=== PATIENT | female | born 1960 | race Caucasian/White ===

== ENCOUNTER 2017-11-03 08:11 | Inpatient (IN) | payer MEDICARE ==
[~2017-11-03] VITALS: Ht 170.2 cm; Wt 169.6 kg
[~2017-11-03 08:11] MED LIST: ALPRAZOLAM2 MG PO; AMARYL2 MG PO; AUGMENTIN 875-1 EACH PO; COMBIVENT RESPIM4 GM IH; COMBIVENT14.7 GM; CONSTULOSE10 GM/15 M PO; ENALAPRIL MALEAT5 MG; GLIMEPIRIDE2 MG PO; GLUCOPHAGE1000 MG PO; GLYBURIDE5 MG PO; HUMULIN R100 UNIT/2 SC; LASIX40 MG PO; METOLAZONE5 MG PO; NORCO 10MG-325MG1 EA PO; PROPRANOLOL HCL20 MG PO; SERTRALINE HCL100 MG PO; SPIRONOLACTONE25 MG PO; SYMBICORT 16010.2 GM PO; TALWIN30 MG/1 M1 PO; TRESIBA INJ; VASOTEC5 MG PO; Z.0.ATIVAN1 MG; Z.0.LASIX40 MG; Z.0.LORTAB 7.5-5001; ZOCOR40 MG PO
[2017-11-03 08:51] LABS: BASOPHILS % 0.3 % (0.0-1.0); EOSINOPHILS # (AUTO) 0.1 (0.0-0.4); EOSINOPHILS % 2.1 % (0.0-6.0); HEMOGLOBIN 12.1 g/dL (12.0-16.0); LYMPHOCYTES # (AUTO) 1.1 (1.0-3.2); LYMPHOCYTES % 19.2 % (18.0-39.1); MEAN CORPUSCULAR HGB CONC 35.6 g/dL (31-35); MEAN CORPUSCULAR VOLUME 98.3 fL (81-99); MONOCYTES # (AUTO) 0.8 (0.2-0.8); MONOCYTES % 13.3 % (4.4-11.3); NEUTROPHILS # (AUTO) 3.7 (2.1-6.9); NEUTROPHILS % 64.8 % (38.7-80.0); PLATELET COUNT 95 x10e3/uL (140-360); RED BLOOD COUNT 3.46 x10e6/uL (3.6-5.1); RED CELL DISTRIBUTION WIDTH 13.4 % (11.7-14.4)
[2017-11-03 08:55] LABS: CLARITY,URINE HAZY (CLEAR); COLOR,URINE YELLOW (YELLOW); KETONES,URINE NEGATIVE (NEGATIVE); LEUKOCYTE ESTERASE ,URINE NEGATIVE (NEGATIVE); NITRITE,URINE NEGATIVE (NEGATIVE); PROTEIN,URINE DIPSTICK NEGATIVE (NEGATIVE)
[2017-11-03 08:56] LABS: BILIRUBIN,URINE NEGATIVE (NEGATIVE); URINE UROBILINOGEN 1 mg/dL (0.2 - 1)
[2017-11-03] MEDS ORDERED: VIIBRYD40 MG PO (08:58)
[2017-11-03] MEDS ORDERED: TYLENOL WITH C1 EACH PO (08:58)
[2017-11-03] MEDS ORDERED: OMEPRAZOLE40 MG PO (08:58)
[2017-11-03] MEDS ORDERED: XIFAXAN550 MG PO (08:58)
[2017-11-03] MEDS ORDERED: FUROSEMIDE40 MG PO (08:59)
[2017-11-03 09:04] LABS: ALBUMIN 2.9 g/dL (3.5-5.0); ALBUMIN/GLOBULIN RATIO 0.7 (0.8-2.0); ANION GAP 13.1 mmol/L (8-16); CALCIUM 9.3 mg/dL (8.4-10.2); CREATININE, SERUM 1.72 mg/dL (0.57-1.11); POTASSIUM 4.1 mmol/L (3.5-5.1)
[2017-11-03 09:07] LABS: BACTERIA,URINE FEW /HPF; EPITHELIAL CELLS,URINE FEW /LPF; WBC,URINE (MAN) 0-5 /HPF (0-5)
[2017-11-03] MEDS ORDERED: ZIPRASIDONE 20 MG VIAL IM STA (09:11)
[2017-11-03 09:26] LABS: AMPHETAMINES SCREEN,URINE NEGATIVE (NEGATIVE); BENZODIAZEPINES SCREEN,URINE NEGATIVE (NEGATIVE); PHENCYCLIDINE SCREEN,URINE NEGATIVE (NEGATIVE)
--- NOTE | 2017-11-03 09:46 | Diagnostic Imaging Report ---
EXAMINATION: CHEST SINGLE (PORTABLE) INDICATION: Shortness of breath. COMPARISON: None FINDINGS: AP view Very limited exam due to body habitus and rotation. TUBES and LINES: None. LUNGS: Lungs are well inflated. Central vascular congestion again observed. Bibasilar subsegmental atelectasis. PLEURA: No significant pleural effusion or pneumothorax. HEART AND MEDIASTINUM: The cardiomediastinal silhouette is enlarged. BONES AND SOFT TISSUES: No acute osseous lesion. Soft tissues are unremarkable. UPPER ABDOMEN: No free air under the diaphragm. IMPRESSION: Mild bilateral pulmonary venous congestion. Signed by: Dr. Olinda Latif M.D. on 11/03/2017 9:43 AM
[2017-11-03] MEDS ORDERED: HYDROMORPHONE 1MG/1ML INJ IV PRN (10:00)
[2017-11-03] MEDS ORDERED: ONDANSETRON HCL INJ 2 MG/ML VIAL IV PRN (10:15)
[2017-11-03] MEDS ORDERED: SODIUM CHLORIDE FLUSH 10 ML SYR INJ PRN (10:15)
[2017-11-03] MEDS ORDERED: DEXTROSE 50% SYRINGE 50 ML IV PRN (11:00)
[2017-11-03] MEDS: CEFTRIAXONE SOD 1 GM VIAL IV SCH ×2 (11:37→22:58)
[2017-11-03] MEDS: SODIUM CHLORIDE 0.45% 1,000 ML IV SCH ×2 (11:37→22:58)
[2017-11-03] MEDS: METRONIDAZOLE 500MG/NS 100ML 100 ML IV SCH ×3 (11:37→22:58)
[2017-11-03 11:45] VITALS: BP 104/59
[2017-11-03] MEDS ORDERED: NORCO 7.5-3251 EACH PO (11:49)
[2017-11-03] MEDS ORDERED: HUMALOG100 UNIT/1 SC (11:49)
[2017-11-03] MEDS ORDERED: CLINDAMYCIN HC150 MG PO (11:49)
[2017-11-03] MEDS: INSULIN LISPRO 100 UNIT/1 ML 3ML VIAL SQ SCH ×3 (12:00→23:19)
[2017-11-03 12:07] VITALS: BP 104/59
[2017-11-03] MEDS: LACTULOSE SYRUP 20 GM/30 ML UDC RC SCH ×2 (13:59→17:46)
--- NOTE | 2017-11-03 14:47 | History and Physical ---
CHIEF COMPLAINT: Hepatic encephalopathy. HISTORY OF PRESENT ILLNESS: Patient is a 56-year-old female with DORSEY associated with liver cirrhosis. The patient came in with a very high ammonia level. It is 159. Apparently the patient ran out of her lactulose. She had not followed up with her family doctor. Currently she is very confused, agitated. She is pending for a treatment of the high ammonia level. PAST MEDICAL HISTORY: DORSEY. Morbid obesity. Hypertension. Diabetes. Fatty liver. The patient is on transplant list. PAST SURGICAL HISTORY: Cholecystectomy. SOCIAL HISTORY: She does smoke, but she does not drink alcohol. ALLERGIES: NO KNOWN ALLERGY. HOME MEDICATIONS: Tylenol No. 3 p.r.n. Madill p.r.n. Symbicort. Furosemide. Amaryl. Combivent. Lactulose. . Omeprazole. Rifaximin. Zoloft. Spironolactone. Viibryd. Tresiba. PHYSICAL EXAMINATION: VITAL SIGNS: Temperature is 98, blood pressure 120/55, pulse rate is 84, respiration 22. GENERAL: The patient is confused and hepatic encephalopathic. HEENT: Normocephalic, atraumatic, anicteric. NECK: Supple grossly on exam. PULMONARY: Diminished breath sounds. CARDIOVASCULAR: Regular rate and rhythm. ABDOMEN: Soft. Morbidly obese. EXTREMITIES: No edema. NEUROLOGIC: Encephalopathic. LABORATORY: Sodium 145, potassium 4.1, chloride 107, bicarb 29, BUN 42, creatinine 1.7, glucose is 179. AST/ALT is 34 and 14 respectively. Alkaline phosphatase 164. Ammonia level is 169. Albumin is 2.9. Total bilirubin is 2.4. WBC is 5.8, hemoglobin 12, hematocrit 34, platelets are 95. Urinalysis unremarkable. Tox screen is only positive for opiate. IMPRESSION: 1. Hepatic encephalopathy. 2. Liver cirrhosis secondary to nonalcoholic steatohepatitis. 3. Morbid obesity. 4. Slight dehydration. 5. Multiple chronic baseline problems. PLAN: Repeat the level in the morning. Annulose per rectum. Gentle IV fluid, but will monitor the patient's overall fluid status. One-to-one for safety. Repeated lab workup. Insulin sliding-scale coverage. Home medication will resume once the patient able to take orally, in the meantime will hold off. If the patient's level remains high, we will need definitely nasogastric tube but for now will hold off due to risk of bleeding through the nasogastric tube due to liver cirrhosis. Job#: [id number] EV
[2017-11-03 16:41] VITALS: BP 112/58
[2017-11-03 20:00] VITALS: BP 145/69
[2017-11-03] MEDS: FUROSEMIDE INJ 10 MG/ML 4 ML VIAL IV SCH (22:58)
[2017-11-04] VITALS: BP 129/59
[2017-11-04] MEDS: LACTULOSE SYRUP 20 GM/30 ML UDC RC SCH ×2 (00:20→06:00)
[2017-11-04 04:00] VITALS: BP 132/60
[2017-11-04 05:09] LABS: BASOPHILS % 0.4 % (0.0-1.0); EOSINOPHILS # (AUTO) 0.1 (0.0-0.4); EOSINOPHILS % 2.1 % (0.0-6.0); HEMATOCRIT 36.2 % (34.2-44.1); HEMOGLOBIN 12.5 g/dL (12.0-16.0); LYMPHOCYTES # (AUTO) 1.4 (1.0-3.2); LYMPHOCYTES % 21.1 % (18.0-39.1); MEAN CORPUSCULAR HEMOGLOBIN 34.6 pg (28-32); MEAN CORPUSCULAR HGB CONC 34.5 g/dL (31-35); MEAN CORPUSCULAR VOLUME 100.3 fL (81-99); MONOCYTES # (AUTO) 0.8 (0.2-0.8); MONOCYTES % 11.6 % (4.4-11.3); NEUTROPHILS # (AUTO) 4.4 (2.1-6.9); NEUTROPHILS % 64.7 % (38.7-80.0); PLATELET COUNT 101 x10e3/uL (140-360); RED BLOOD COUNT 3.61 x10e6/uL (3.6-5.1); RED CELL DISTRIBUTION WIDTH 13.6 % (11.7-14.4)
[2017-11-04 05:40] LABS: ALBUMIN 2.8 g/dL (3.5-5.0); ALBUMIN/GLOBULIN RATIO 0.7 (0.8-2.0); ANION GAP 14.5 mmol/L (8-16); CALCIUM 9.6 mg/dL (8.4-10.2); CHOL/HDL RATIO 4.6 (3.0-3.6); CREATININE, SERUM 1.45 mg/dL (0.57-1.11); PHOSPHORUS 3.7 MG/DL (2.3-4.7); POTASSIUM 3.5 mmol/L (3.5-5.1)
[2017-11-04] MEDS: INSULIN LISPRO 100 UNIT/1 ML 3ML VIAL SQ SCH (05:40)
[2017-11-04] MEDS: METRONIDAZOLE 500MG/NS 100ML 100 ML IV SCH (05:57)
[2017-11-04 06:02] LABS: THYROID STIMULATING HORMONE 1.122 uIU/mL (0.350-4.940)
[2017-11-04 06:08] LABS: FOLATE 10.3 ng/mL (7.0-15.4)
[2017-11-04] MEDS: SODIUM CHLORIDE 0.45% 1,000 ML IV SCH (07:57)
[2017-11-04] MEDS: FUROSEMIDE INJ 10 MG/ML 4 ML VIAL IV SCH (09:00)
[2017-11-04] MEDS ORDERED: DIFLUCAN100 MG PO (10:25)
--- NOTE | 2017-11-04 11:41 | Consultation ---
DATE OF CONSULTATION: November 04, 2017 This is a 56-year-old who has a history of cirrhosis and mass. She presented to the hospital because of hepatic encephalopathy after missing a few doses of lactulose. She denies any abdominal pain. Denies any bleeding. She apparently is on a liver transplant list with [facility] liver transplant team. She has been given lactulose, and now she is back to her normal self. MEDICAL PROBLEMS: Include DORSEY, cirrhosis, morbid obesity, hypertension, diabetes. She is status post cholecystectomy. ALLERGIES: NONE. MEDICATIONS AT HOME: She is supposed to be on lactulose. Also, she is on Lasix and insulin. SOCIAL HISTORY: No alcohol use. FAMILY HISTORY: Noncontributory. REVIEW OF SYSTEMS: She denies any chest pain or shortness of breath. She denies any dysphagia or odynophagia. Denies dysuria or hematuria or any kind of syncopal episode. PHYSICAL EXAMINATION GENERAL: She is awake, alert, appears to be stable, no acute distress at this point. VITAL SIGNS: Afebrile currently with stable vital signs. HEAD, EYES, EARS, NOSE AND THROAT: Normocephalic and atraumatic. Sclerae are anicteric. NECK: Supple. CARDIAC: Regular. LUNGS: Clear. ABDOMEN: Soft. There is no distention at this point. It is nontender. EXTREMITIES: No clubbing. LAB VALUES: CBC today is normal. BUN 33, creatinine 1.45. AST 48, bilirubin 3.2. Ammonia level was 169 on admission. This is down to 72, which is normal. IMPRESSION 1. Hepatic encephalopathy, resolved. 2. History of cirrhosis and nonalcoholic steatohepatitis. 3. Anemia and thrombocytopenia. RECOMMENDATIONS: Continue current care at this point. The patient can potentially be discharged later today since she is already back to her baseline. Follow up with me as an outpatient as well as Dr. Reis at [facility] liver transplant team. Job#: [id number] cc:MD GAL NAJERA MD
[2017-11-04] MEDS ORDERED: LACTULOSE SYRUP 20 GM/30 ML UDC PO SCH (12:00)
--- NOTE | 2017-11-04 16:18 | Discharge Summary ---
FINAL DIAGNOSES: 1. Hepatic encephalopathy secondary to not taking lactulose. 2. Morbid obesity. 3. Liver cirrhosis from nonalcoholic steatohepatitis. SUMMARY: A 56-year-old female with DORSEY came in with hepatic encephalopathy. The patient is completely coherent now. She was given rectal lactulose. She is stable. She did miss a few doses. The patient is stable now, will discharge home. Resume home medication. Job#: [id number] EV
[2017-11-04] MEDS ORDERED: BETAMETHASONE/CLOTRIMAZOLE CR 15 GM TUBE TOP SCH ×2 (17:00)
== END 2017-11-04 10:46 | disposition home or self-care (01) | DRG 442 ==
LOC: ER 08:11 → ERHOLD 10:04 → MED/SURG2 11:17
PROVIDERS: ADMIT Internal Medicine; ATTEND Internal Medicine
DX: K72.90 Hepatic failure, unspecified without coma (principal); Z68.43 Body mass index [BMI] 50.0-59.9, adult; E66.01 Morbid (severe) obesity due to excess calories; K75.81 Nonalcoholic steatohepatitis (NASH); D64.9 Anemia, unspecified; D69.6 Thrombocytopenia, unspecified; I10 Essential (primary) hypertension; Z76.82 Awaiting organ transplant status; E86.0 Dehydration; T47.3X6A Underdosing of saline and osmotic laxatives, initial encounter; K74.69 Other cirrhosis of liver
CPT/HCPCS: 36415; 51700; 71045; 80053; 80061; 80307; 81001; 82140; 82607; 82746; 82948; 83036; 83690; 84100; 84443; 85025; 93005; 99284; J0696; J1940; J3486

== ENCOUNTER 2018-01-04 08:36 | Inpatient (IN) | payer MEDICARE, OTHER ==
[~2018-01-04] VITALS: Ht 170.2 cm; Wt 169.6 kg
[~2018-01-04 08:36] MED LIST changes: +CLINDAMYCIN HC150 MG PO; +DIFLUCAN100 MG PO; +FUROSEMIDE40 MG PO; +HUMALOG100 UNIT/1 SC; +NORCO 7.5-3251 EACH PO; +OMEPRAZOLE40 MG PO; +TYLENOL WITH C1 EACH PO; +VIIBRYD40 MG PO; +XIFAXAN550 MG PO
[2018-01-04 09:43] LABS: BASOPHILS % 0.1 % (0.0-1.0); EOSINOPHILS # (AUTO) 0.2 (0.0-0.4); EOSINOPHILS % 2.2 % (0.0-6.0); HEMATOCRIT 38.5 % (34.2-44.1); HEMOGLOBIN 13.6 g/dL (12.0-16.0); LYMPHOCYTES # (AUTO) 1.6 (1.0-3.2); LYMPHOCYTES % 23.2 % (18.0-39.1); MEAN CORPUSCULAR HEMOGLOBIN 34.3 pg (28-32); MEAN CORPUSCULAR HGB CONC 35.3 g/dL (31-35); MEAN CORPUSCULAR VOLUME 97.2 fL (81-99); MONOCYTES % 15.1 % (4.4-11.3); NEUTROPHILS % 59.3 % (38.7-80.0); PLATELET COUNT 104 x10e3/uL (140-360); RED BLOOD COUNT 3.96 x10e6/uL (3.6-5.1)
[2018-01-04] MEDS ORDERED: PANTOPRAZOLE 40 MG 10ML VIAL IV NR (09:45)
[2018-01-04 10:15] LABS: ALBUMIN 2.9 g/dL (3.5-5.0); ALBUMIN/GLOBULIN RATIO 0.6 (0.8-2.0); ANION GAP 16.4 mmol/L (8-16); CALCIUM 9.6 mg/dL (8.4-10.2); CREATININE, SERUM 2.27 mg/dL (0.57-1.11); POTASSIUM 3.4 mmol/L (3.5-5.1)
[2018-01-04] MEDS ORDERED: LACTULOSE SYRUP 20 GM/30 ML UDC NG NR (10:15)
[2018-01-04 10:21] LABS: CREATINE KINASE MB 3.1 ng/mL (0-5.0)
[2018-01-04 10:35] LABS: CLARITY,URINE CLEAR (CLEAR); COLOR,URINE YELLOW (YELLOW)
[2018-01-04 10:36] LABS: BILIRUBIN,URINE NEGATIVE (NEGATIVE); KETONES,URINE NEGATIVE (NEGATIVE); LEUKOCYTE ESTERASE ,URINE NEGATIVE (NEGATIVE); NITRITE,URINE NEGATIVE (NEGATIVE); PROTEIN,URINE DIPSTICK NEGATIVE (NEGATIVE); URINE UROBILINOGEN 0.2 mg/dL (0.2 - 1)
[2018-01-04 10:48] LABS: EPITHELIAL CELLS,URINE FEW /LPF
[2018-01-04 10:49] LABS: RBC,URINE 0-5 /HPF (0-5); TRANSITIONAL EPI CELLS,URINE RARE; WBC,URINE (MAN) 0-5 /HPF (0-5)
--- NOTE | 2018-01-04 12:17 | Diagnostic Imaging Report ---
Examination: Single AP view of the chest. COMPARISON: AP chest 11/03/2017 INDICATION: Shortness of breath IMPRESSION: Markedly limited exam due to motion and patient agitated state 1. Lines and Tubes: An enteric tube is noted, however, the distal tip is not visualized. 2. Lungs are hypoinflated. Questionable right infrahilar opacity, which may represent atelectasis and less likely aspiration or pneumonia. Left lung is grossly clear. 3. Prominent cardiac silhouette, which may be partly due to portable technique and low lung volumes. Central vascular crowding due to low lung volumes. 4. No acute bony abnormalities. Signed by: Dr. Tato Oneal M.D. on 01/04/2018 12:13 PM
[2018-01-04] MEDS: SODIUM CHLORIDE 0.9% 1000ML 1,000 ML IV SCH (12:50)
[2018-01-04] MEDS ORDERED: RIFAXIMIN 550 MG TABLET NG SCH (13:00)
[2018-01-04] MEDS ORDERED: CEFTRIAXONE SOD 1 GM/NS 50 ML 50 ML IV SCH (13:30)
[2018-01-04] MEDS ORDERED: DEXTROSE 50% SYRINGE 50 ML IV PRN (13:30)
[2018-01-04] MEDS ORDERED: CEFTRIAXONE SOD 1 GM VIAL IV SCH (14:00)
[2018-01-04] MEDS ORDERED: LACTULOSE SYRUP 20 GM/30 ML UDC PO SCH (18:00)
[2018-01-04] MEDS: INSULIN LISPRO 100 UNIT/1 ML 3ML VIAL SQ SCH (18:39)
[2018-01-05] MEDS: INSULIN LISPRO 100 UNIT/1 ML 3ML VIAL SQ SCH ×9 (00:13→21:00)
[2018-01-05] MEDS: LACTULOSE SYRUP 20 GM/30 ML UDC PO SCH ×5 (00:55→23:19)
[2018-01-05] MEDS ORDERED: MAGNESIUM OXID400 MG PO (01:17)
[2018-01-05] MEDS ORDERED: ATORVASTATIN CA40 MG PO (01:17)
[2018-01-05] MEDS: SODIUM CHLORIDE 0.9% 1000ML 1,000 ML IV SCH (02:07)
[2018-01-05] MEDS: CEFTRIAXONE SOD 1 GM VIAL IV SCH ×2 (02:50→16:06)
[2018-01-05] MEDS ORDERED: RIFAXIMIN 550 MG TABLET NG SCH ×2 (03:00)
[2018-01-05 04:19] LABS: BASOPHILS % 0.4 % (0.0-1.0); EOSINOPHILS # (AUTO) 0.1 (0.0-0.4); EOSINOPHILS % 1.3 % (0.0-6.0); HEMATOCRIT 38.4 % (34.2-44.1); HEMOGLOBIN 13.5 g/dL (12.0-16.0); LYMPHOCYTES # (AUTO) 1.6 (1.0-3.2); LYMPHOCYTES % 17.7 % (18.0-39.1); MEAN CORPUSCULAR HEMOGLOBIN 34.2 pg (28-32); MEAN CORPUSCULAR HGB CONC 35.2 g/dL (31-35); MEAN CORPUSCULAR VOLUME 97.2 fL (81-99); MONOCYTES # (AUTO) 1.3 (0.2-0.8); NEUTROPHILS % 66.3 % (38.7-80.0); PLATELET COUNT 97 x10e3/uL (140-360); RED BLOOD COUNT 3.95 x10e6/uL (3.6-5.1); RED CELL DISTRIBUTION WIDTH 13.9 % (11.7-14.4)
[2018-01-05 04:34] LABS: CALCIUM 9.7 mg/dL (8.4-10.2); CREATININE, SERUM 1.9 mg/dL (0.57-1.11)
[2018-01-05 04:53] LABS: CREATINE KINASE MB 4.2 ng/mL (0-5.0)
[2018-01-05] MEDS ORDERED: POTASSIUM CHLORIDE 20MEQ/15ML UDC NG STA (05:21)
[2018-01-05 10:11] VITALS: BP 109/73
[2018-01-05 10:19] VITALS: BP 109/73
[2018-01-05] MEDS ORDERED: DEXTROSE 50% SYRINGE 50 ML IV PRN (10:45)
[2018-01-05] MEDS ORDERED: DIATRIZOATE MEGL/DIATRIZOA SOD 30 ML BTL PO ONE (10:55)
[2018-01-05 11:49] VITALS: BP 140/68
[2018-01-05] MEDS: HYDROCODONE/APAP 7.5MG-325MG 1 EA TAB PO PRN ×3 (12:00→23:20)
--- NOTE | 2018-01-05 13:38 | Diagnostic Imaging Report ---
EXAM: CT Abdomen and Pelvis WITHOUT contrast INDICATION: Pain COMPARISON: None. TECHNIQUE: Abdomen and Pelvis was scanned utilizing a multidetector helical scanner without the use of IV contrast. Coronal and sagittal reformations were obtained. IV CONTRAST: None COMPLICATIONS: None RADIATION DOSE: Total DLP: 1356 mGy*cm Estimated effective dose: (DLP x 0.015 x size factor) mSv CTDIvol has been reviewed. It is below the limits set by the Radiation Protocol Committee (RPC). Appropriate CT dose reduction techniques were utilized. FINDINGS: Abdomen: Lung Bases: No acute findings. Solid Organs: Nodular/right contour of the liver. Evaluation for mass limited given lack of IV contrast. 7 mm nodule posterior to right hepatic lobe. 27 mm cyst inferior left kidney. Solid organs otherwise unremarkable. Upper GI Tract: No small bowel obstructive changes. Vascularity: No aortic aneurysm. Lymph Nodes: No suspicious adenopathy. Other: Cholecystectomy changes. Right aspect of abdomen including loops of bowel excluded from [id number] due to large body habitus. Pelvis: Bladder: Decompressed Matos catheter. Other: 97 mm cystic lesion superior and to the left of the uterus. Colon: There are a few scattered diverticula with no CT evidence of diverticulitis. Right: And small bowel in the right lower quadrant excluded from [id number] as above. Bones: Degenerative changes lower lumbar spine. Moderate to large Schmorl's nodes superior endplate T12 with resultant height loss, chronic in appearance. IMPRESSION: 1. Cirrhotic morphology of liver. If concern present for hepatic mass, outpatient liver mass protocol recommended. 2. 97 mm cystic lesion presumably left adnexal. Given age, cystic malignancy diagnosis of exclusion. Gynecologic follow-up and pelvic ultrasound recommended. 3. Diverticulosis. 4. Simple cyst left kidney. Signed by: Dr. Sam Jose MD on 01/05/2018 1:34 PM
[2018-01-05 15:50] VITALS: BP 123/58
[2018-01-05] MEDS: RIFAXIMIN 550 MG TABLET NG SCH (16:06)
[2018-01-05] MEDS: PANTOPRAZOLE SOD 40 MG TABEC PO SCH (16:06)
--- NOTE | 2018-01-05 19:25 | Consultation ---
DATE OF CONSULTATION: January 05, 2018 GI CONSULT NOTE REASON FOR CONSULTATION: Acute hepatic encephalopathy. HISTORY OF PRESENT ILLNESS: A 57-year-old morbidly obese patient with the history of diabetes, DORSEY liver cirrhosis. She is a patient of my associate, Dr. Zamora. She follows up in liver transplant clinic at [facility]. She has had upper endoscopy, as well as colonoscopy performed by my associate Dr. Hughes in September at [facility]. As per patient, she was not found to have any varices. She has a history of recurrent hepatic encephalopathy for which she has been getting admitted in the hospital on a regular basis. This time, she got admitted with acute confusion. Family noted that she was incoherent. She was brought into the emergency room yesterday. Ammonia level was elevated to 289. Patient was given lactulose with which she has had several bowel movements. She is maintaining well now. She is very well coherent. Ammonia level has also come down to 72. Patient has had 3 bowel movements today with use of lactulose. REVIEW OF SYSTEMS: A 12-point system reviewed. Symptomatology is limited as per HPI. PAST MEDICAL HISTORY: Type-2 diabetes, hyperlipidemia, GERD, anxiety, depression, obesity. PAST SURGICAL HISTORY: Cholecystectomy, C-sections, recent upper endoscopy and colonoscopy. FAMILY HISTORY: Negative for any GI or HERD TESTER malignancies. No chronic liver disease runs in the family. SOCIAL HISTORY: Chronic smoker. No alcohol. Never used any illicit drugs. ALLERGIES: NO KNOWN DRUG ALLERGIES. HOME MEDICATIONS 1. Atorvastatin. 2. Furosemide 40 mg daily. 3. Glimepiride 2 mg daily. 4. Hydrocodone with acetaminophen 1 tablet t.i.d. p.r.n. 5. Insulin lispro 30 units subcutaneous 3 times daily. 6. Ipratropium/albuterol inhaler. 7. Lactulose 10 g t.i.d. 8. Magnesium oxide 400 mg daily. 9. Metolazone 5 mg daily. 10. Omeprazole 40 mg daily. 11. Rifaximin 550 mg twice daily. 12. Sertraline 100 mg daily at bedtime. 13. Spironolactone 100 mg daily. 14. Vilazodone hydrochloride 40 mg daily. INPATIENT MEDICATION: List reviewed as per JUN. She is getting intravenous ceftriaxone along with other medication. PHYSICAL EXAMINATION VITALS: Temperature 96.3, pulse 89, respiration 18, blood pressure 123/58, oxygen saturation 98% on room air. GENERAL: Not in any acute distress, coherent, morbidly obese body habitus. HEENT: Oral mucosa moist. Anicteric sclerae. NECK: Short and thick. CVS: S1, S2 regular. LUNGS: Bilaterally grossly clear. ABDOMEN: Obese, nondistended. Abdominal examination is quite limited due abdominal obesity. Ascites cannot be appreciated. Bowel sounds present. EXTREMITIES: Trace bilateral leg edema. LABORATORY DATA: Urinalysis clear. WBC 9.05, hemoglobin 13.5, hematocrit 38.4, platelet count 97,000. Sodium 136, potassium 3.0, chloride 96, bicarb 26, BUN 60, creatinine 1.90, glucose 171. Liver enzymes drawn on yesterday showed total bilirubin 2.3, AST 60, ALT 24, alkaline phosphatase 248. Ammonia level has come down from [address] of the abdomen without contrast showed 1. Cirrhotic morphology of the liver. If concern present for hepatic mass, outpatient liver mass protocol recommended. 2. A 97-mm cystic lesion presumably at left adnexa. Given age, cystic malignancy, diagnosis of exclusion, gynecologic followup and pelvic ultrasound recommended. 3. Diverticulosis. 4. Simple cyst of the left kidney. IMPRESSIONS 1. Acute encephalopathy, which has resolved. 2. A 97-mm nodule in the liver seen on the noncontrast computed tomography exam. This certainly needs further evaluation. Will check alpha-fetoprotein level. Agree for outpatient contrast enhanced liver protocol computed tomography scan. However, this cannot be performed due to low glomerular filtration rate. 3. Patient is on antibiotic, ceftriaxone, for the reason unclear to me. If there is no question of sepsis, then this should be discontinued. PLAN: Continue lactulose for 1 to 2 bowel movements daily. Do not give lactulose to cause diarrhea. The diarrhea can cause electrolyte imbalance. As a result of that, patient will be thrown into hepatic encephalopathy again. Dr. Zamora will take over the care from tomorrow. I thank Dr. Hermosillo for allowing me to participate in the care of this patient. Job#: [id number]
[2018-01-05 20:00] VITALS: BP 118/52
[2018-01-05 20:50] VITALS: BP 118/52
[2018-01-05] MEDS: SERTRALINE HCL 100 MG TAB PO SCH (21:00)
[2018-01-06] VITALS (7 sets, daily range): BP systolic 113–132; BP diastolic 53–78
[2018-01-06] MEDS: CEFTRIAXONE SOD 1 GM VIAL IV SCH ×2 (02:11→15:02)
[2018-01-06] MEDS: RIFAXIMIN 550 MG TABLET NG SCH ×2 (02:19→15:02)
[2018-01-06 04:34] LABS: BASOPHILS % 0.4 % (0.0-1.0); EOSINOPHILS # (AUTO) 0.3 (0.0-0.4); EOSINOPHILS % 2.8 % (0.0-6.0); HEMOGLOBIN 12.3 g/dL (12.0-16.0); LYMPHOCYTES # (AUTO) 2.5 (1.0-3.2); LYMPHOCYTES % 24.1 % (18.0-39.1); MEAN CORPUSCULAR HEMOGLOBIN 34.2 pg (28-32); MEAN CORPUSCULAR HGB CONC 35.1 g/dL (31-35); MEAN CORPUSCULAR VOLUME 97.2 fL (81-99); MONOCYTES # (AUTO) 1.5 (0.2-0.8); MONOCYTES % 14.8 % (4.4-11.3); NEUTROPHILS # (AUTO) 5.9 (2.1-6.9); NEUTROPHILS % 57.6 % (38.7-80.0); PLATELET COUNT 83 x10e3/uL (140-360); RED CELL DISTRIBUTION WIDTH 14.2 % (11.7-14.4)
[2018-01-06 04:53] LABS: CREATININE, SERUM 2.1 mg/dL (0.57-1.11)
[2018-01-06 05:09] LABS: MAGNESIUM 1.8 MG/DL (1.3-2.1); PHOSPHORUS 3.7 MG/DL (2.3-4.7)
[2018-01-06] MEDS: LACTULOSE SYRUP 20 GM/30 ML UDC PO SCH ×3 (05:09→20:46)
[2018-01-06] MEDS: HYDROCODONE/APAP 7.5MG-325MG 1 EA TAB PO PRN ×3 (05:13→22:08)
[2018-01-06] MEDS: PANTOPRAZOLE SOD 40 MG TABEC PO SCH ×2 (07:30→17:03)
[2018-01-06] MEDS: INSULIN LISPRO 100 UNIT/1 ML 3ML VIAL SQ SCH ×7 (07:30→21:00)
[2018-01-06] MEDS ORDERED: POTASSIUM CHLORIDE 20 MEQ TAB CR PO NR ×2 (08:00→09:15)
[2018-01-06] MEDS: GLIMEPIRIDE 2 MG TAB PO SCH (08:00)
[2018-01-06] MEDS: MAGNESIUM OXIDE 400 MG TAB PO SCH (09:00)
[2018-01-06] MEDS: SERTRALINE HCL 100 MG TAB PO SCH (20:46)
[2018-01-07] VITALS: BP 113/53
[2018-01-07] MEDS: CEFTRIAXONE SOD 1 GM VIAL IV SCH (03:08)
[2018-01-07] MEDS: RIFAXIMIN 550 MG TABLET NG SCH (03:20)
[2018-01-07] MEDS: HYDROCODONE/APAP 7.5MG-325MG 1 EA TAB PO PRN (03:44)
[2018-01-07 04:00] VITALS: BP 119/59
[2018-01-07 05:33] LABS: ANION GAP 11.3 mmol/L (8-16); CALCIUM 8.7 mg/dL (8.4-10.2); CREATININE, SERUM 1.86 mg/dL (0.57-1.11); POTASSIUM 3.3 mmol/L (3.5-5.1)
[2018-01-07] MEDS: LACTULOSE SYRUP 20 GM/30 ML UDC PO SCH (05:46)
[2018-01-07 08:00] VITALS: BP 106/65
[2018-01-07] MEDS: PANTOPRAZOLE SOD 40 MG TABEC PO SCH (08:33)
[2018-01-07] MEDS: GLIMEPIRIDE 2 MG TAB PO SCH (08:33)
[2018-01-07] MEDS: MAGNESIUM OXIDE 400 MG TAB PO SCH (08:33)
[2018-01-07] MEDS: INSULIN LISPRO 100 UNIT/1 ML 3ML VIAL SQ SCH ×2 (09:00→09:01)
--- NOTE | 2018-01-07 14:07 | Discharge Summary ---
FINAL DIAGNOSES: 1. Acute on chronic hepatic encephalopathy. 2. Chronic liver cirrhosis. 3. Morbid obesity. SUMMARY: A 57-year-old female came in with severe ammonia level high in the 280s. The patient has acute hepatic encephalopathy. She is stable now. The ammonia level is less than 100 now. The patient is stable. She will go home today. I suggest the patient to resume her home medications but more importantly double up her Lactulose. The patient is aware. She is comfortable. She will go home and follow up with Dr. Johnston, her family doctor, and Dr. Rufino Zamora, her landcare officer. Job#: [id number] EV
== END 2018-01-07 10:59 | disposition home or self-care (01) | DRG 442 ==
LOC: ER 08:36 → ERHOLD 12:56 → MED/SURG2 01-05 08:43
PROVIDERS: ADMIT Internal Medicine; ATTEND Internal Medicine
DX: K72.00 Acute and subacute hepatic failure without coma (principal); Z68.43 Body mass index [BMI] 50.0-59.9, adult; N17.9 Acute kidney failure, unspecified; K75.81 Nonalcoholic steatohepatitis (NASH); K74.60 Unspecified cirrhosis of liver; E66.01 Morbid (severe) obesity due to excess calories; E11.9 Type 2 diabetes mellitus without complications; Z79.899 Other long term (current) drug therapy; R16.0 Hepatomegaly, not elsewhere classified; N28.1 Cyst of kidney, acquired; K57.90 Diverticulosis of intestine, part unspecified, without perforation or abscess without bleeding; E86.0 Dehydration
CPT/HCPCS: 36415; 51700; 71045; 74176; 80048; 80053; 81001; 82140; 82550; 82553; 82948; 83036; 83735; 84100; 84443; 84484; 85025; 87086; 93005; 96361; 99284; J0696; J7030

== ENCOUNTER 2018-01-19 14:43 | Emergency (ER) | payer MEDICARE, OTHER ==
[~2018-01-19] VITALS: Ht 322.6 cm; Wt 169.6 kg
[~2018-01-19 14:43] MED LIST changes: +ATORVASTATIN CA40 MG PO; +MAGNESIUM OXID400 MG PO
[2018-01-19 15:57] LABS: BASOPHILS % 0.4 % (0.0-1.0); EOSINOPHILS # (AUTO) 0.1 (0.0-0.4); EOSINOPHILS % 1.7 % (0.0-6.0); HEMATOCRIT 35.8 % (34.2-44.1); HEMOGLOBIN 12.1 g/dL (12.0-16.0); LYMPHOCYTES # (AUTO) 1.5 (1.0-3.2); LYMPHOCYTES % 21.3 % (18.0-39.1); MEAN CORPUSCULAR HGB CONC 33.8 g/dL (31-35); MEAN CORPUSCULAR VOLUME 100.6 fL (81-99); MONOCYTES # (AUTO) 0.9 (0.2-0.8); MONOCYTES % 12.5 % (4.4-11.3); NEUTROPHILS # (AUTO) 4.4 (2.1-6.9); NEUTROPHILS % 63.8 % (38.7-80.0); PLATELET COUNT 89 x10e3/uL (140-360); RED BLOOD COUNT 3.56 x10e6/uL (3.6-5.1); RED CELL DISTRIBUTION WIDTH 14.6 % (11.7-14.4)
[2018-01-19 16:01] LABS: BILIRUBIN,URINE NEGATIVE (NEGATIVE); CLARITY,URINE HAZY (CLEAR); COLOR,URINE YELLOW (YELLOW); KETONES,URINE NEGATIVE (NEGATIVE); LEUKOCYTE ESTERASE ,URINE 1+ (NEGATIVE); NITRITE,URINE NEGATIVE (NEGATIVE); PROTEIN,URINE DIPSTICK NEGATIVE (NEGATIVE); URINE UROBILINOGEN 0.2 mg/dL (0.2 - 1)
[2018-01-19 16:09] LABS: BACTERIA,URINE FEW /HPF; EPITHELIAL CELLS,URINE MANY /LPF; RBC,URINE 0-5 /HPF (0-5); RENAL EPITHELIAL CELLS,URINE MODERATE; WBC,URINE (MAN) >50 /HPF (0-5)
[2018-01-19 16:16] LABS: ALBUMIN 2.8 g/dL (3.5-5.0); ALBUMIN/GLOBULIN RATIO 0.7 (0.8-2.0); ANION GAP 13.3 mmol/L (8-16); CALCIUM 9.3 mg/dL (8.4-10.2); CREATININE, SERUM 1.75 mg/dL (0.57-1.11); POTASSIUM 3.3 mmol/L (3.5-5.1)
[2018-01-19 17:41] VITALS: BP 100/58
== END 2018-01-19 17:57 | disposition home or self-care (01) ==
LOC: ER 14:43
DX: R53.1 Weakness (principal); I10 Essential (primary) hypertension; E11.9 Type 2 diabetes mellitus without complications; K74.60 Unspecified cirrhosis of liver
CPT/HCPCS: 36415; 80053; 81001; 82140; 83690; 85025; 99284

== ENCOUNTER 2018-01-23 04:09 | Observation (INO) | payer MEDICARE, OTHER ==
[~2018-01-23] VITALS: Ht 172.7 cm; Wt 166.0 kg
[2018-01-23] MEDS ORDERED: LACTULOSE SYRUP 20 GM/30 ML UDC PO ONE (04:15)
[2018-01-23 04:34] LABS: BASOPHILS % 0.6 % (0.0-1.0); EOSINOPHILS # (AUTO) 0.1 (0.0-0.4); EOSINOPHILS % 2.4 % (0.0-6.0); HEMATOCRIT 37.2 % (34.2-44.1); HEMOGLOBIN 12.9 g/dL (12.0-16.0); LYMPHOCYTES # (AUTO) 1.5 (1.0-3.2); LYMPHOCYTES % 30.1 % (18.0-39.1); MEAN CORPUSCULAR HEMOGLOBIN 34.4 pg (28-32); MEAN CORPUSCULAR HGB CONC 34.7 g/dL (31-35); MEAN CORPUSCULAR VOLUME 99.2 fL (81-99); MONOCYTES # (AUTO) 0.7 (0.2-0.8); MONOCYTES % 13.9 % (4.4-11.3); NEUTROPHILS # (AUTO) 2.7 (2.1-6.9); NEUTROPHILS % 52.8 % (38.7-80.0); PLATELET COUNT 116 x10e3/uL (140-360); RED BLOOD COUNT 3.75 x10e6/uL (3.6-5.1); RED CELL DISTRIBUTION WIDTH 15.1 % (11.7-14.4)
[2018-01-23 04:44] LABS: INR 1.19; PROTHROMBIN TIME 16.2 seconds (11.9-14.5)
[2018-01-23 04:45] LABS: PARTIAL THROMBOPLASTIN TIME 34.1 seconds (23.8-35.5)
[2018-01-23 04:53] LABS: ALBUMIN 2.9 g/dL (3.5-5.0); ALBUMIN/GLOBULIN RATIO 0.6 (0.8-2.0); ANION GAP 18.9 mmol/L (8-16); CALCIUM 9.7 mg/dL (8.4-10.2); CREATININE, SERUM 2.1 mg/dL (0.57-1.11); POTASSIUM 4.9 mmol/L (3.5-5.1)
[2018-01-23 05:00] LABS: CREATINE KINASE MB 1.9 ng/mL (0-5.0)
[2018-01-23] MEDS ORDERED: LACTULOSE SYRUP 20 GM/30 ML UDC RC ONE ×2 (05:30→09:00)
[2018-01-23] MEDS ORDERED: ASPIRIN 81 MG CHEW TAB PO ONE (06:00)
[2018-01-23 08:25] VITALS: BP 112/53
[2018-01-23 09:07] VITALS: BP 112/53
[2018-01-23] MEDS ORDERED: DEXTROSE 50% SYRINGE 50 ML IV PRN (09:30)
[2018-01-23] MEDS ORDERED: IPRATROPIUM/ALBUTEROL SULFATE 4 GM INH INH PRN (09:30)
--- NOTE | 2018-01-23 09:42 | History and Physical ---
CHIEF COMPLAINT: Altered mental status. HISTORY OF PRESENT ILLNESS: A 57-year-old morbidly obese female patient with a history of advanced end-stage liver disease secondary to fatty liver. The patient already follows at liver transplant clinic. She is on lactulose and rifaximin for hepatic encephalopathy. She gets frequent episodes of encephalopathy with multiple admissions. She also has diabetes mellitus, chronic lower back pain. Her mother supervises her medications and healthcare. She was brought to the hospital with disorientation, confusion. Ammonia level was 176. The patient is admitted. She is lethargic, arousable and responsive. PAST MEDICAL HISTORY: Diabetes mellitus, morbid obesity, fatty liver with cirrhosis of the liver, degenerative joint disease, COPD, asthma, hyperlipidemia, depression. MEDICATIONS 1. Atorvastatin 40 mg daily. 2. Lasix 40 mg 2 tablets t.i.d. 3. Glimepiride 2 mg daily. 4. Barton 7.5 per 325 mg p.r.n. 5. Humalog insulin with meals. 6. Combivent inhaler. 7. Lactulose 10 g per 15 mL 30 mL t.i.d. Adjust with bowel movements. 8. Metolazone 5 mg 2 tablets daily. 9. Rifaximin 550 mg b.i.d. 10. Sertraline 100 mg daily. 11. Viibryd 40 mg daily. 12. Aldactone 25 mg b.i.d. 13. 20 mg 2 tablets b.i.d. PAST SURGICAL HISTORY: None. PERSONAL HISTORY: History of smoking in the past. No history of alcohol use. REVIEW OF SYSTEMS: All other systems reviewed and no complaints. The patient denies fever. PHYSICAL EXAMINATION VITALS: Weight 355.56 pounds, height 68 inches, blood pressure 103/54, pulse 85, pulse oximetry 100%. HEENT: Normal. NECK: No JVD. LUNGS: Bilateral air entry. ABDOMEN: Soft. No ascites. EXTREMITIES: Lower extremities with trace edema present in both legs with chronic stasis dermatitis changes noted on both legs from chronic edema. 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 Follows commands. No focal deficit. LABS: CBC shows white blood count of 5, hemoglobin 12.9 and platelets 116,000. Sodium 140, potassium 4.9, BUN 55, creatinine 2.1. Ammonia 176. ASSESSMENT 1. Hepatic encephalopathy. 2. Cirrhosis of the liver from fatty liver. 3. Diabetes mellitus. PLAN: Will increase the lactulose. Continue home medications. Discharge when more awake. Job#: [id number] RI
[2018-01-23 12:02] VITALS: BP 105/53
[2018-01-23] MEDS: INSULIN LISPRO 100 UNIT/1 ML 3ML VIAL SQ SCH ×3 (12:03→20:40)
[2018-01-23 14:05] LABS: CREATINE KINASE MB 2.5 ng/mL (0-5.0)
[2018-01-23 16:00] VITALS: BP 116/62
[2018-01-23] MEDS: FUROSEMIDE 40 MG TAB PO SCH (16:24)
[2018-01-23] MEDS: RIFAXIMIN 550 MG TABLET PO SCH (16:25)
[2018-01-23] MEDS: HYDROCODONE/APAP 7.5MG-325MG 1 EA TAB PO PRN (16:28)
[2018-01-23] MEDS: LACTULOSE SYRUP 20 GM/30 ML UDC PO SCH ×2 (16:53→20:39)
[2018-01-23 19:51] VITALS: BP 110/58
[2018-01-23] MEDS ORDERED: ATORVASTATIN 40 MG TAB PO SCH (21:00)
[2018-01-23] MEDS ORDERED: SERTRALINE HCL 100 MG TAB PO SCH (21:00)
[2018-01-23] MEDS ORDERED: NON-FORMULARY MEDICATION (Atorvastatin Calcium 40 MG) PO SCH (21:00)
[2018-01-23 21:33] LABS: CREATINE KINASE MB 2.9 ng/mL (0-5.0)
[2018-01-24] VITALS: BP 103/57
[2018-01-24 04:00] VITALS: BP 126/60
[2018-01-24 05:01] LABS: BASOPHILS % 0.4 % (0.0-1.0); EOSINOPHILS # (AUTO) 0.1 (0.0-0.4); EOSINOPHILS % 2.3 % (0.0-6.0); HEMATOCRIT 33.8 % (34.2-44.1); HEMOGLOBIN 11.3 g/dL (12.0-16.0); LYMPHOCYTES # (AUTO) 1.7 (1.0-3.2); LYMPHOCYTES % 36.1 % (18.0-39.1); MEAN CORPUSCULAR HEMOGLOBIN 34.2 pg (28-32); MEAN CORPUSCULAR HGB CONC 33.4 g/dL (31-35); MEAN CORPUSCULAR VOLUME 102.4 fL (81-99); MONOCYTES # (AUTO) 0.6 (0.2-0.8); MONOCYTES % 12.4 % (4.4-11.3); NEUTROPHILS # (AUTO) 2.3 (2.1-6.9); NEUTROPHILS % 48.6 % (38.7-80.0); PLATELET COUNT 96 x10e3/uL (140-360); RED CELL DISTRIBUTION WIDTH 15.3 % (11.7-14.4)
[2018-01-24 05:27] LABS: ALBUMIN 2.5 g/dL (3.5-5.0); ALBUMIN/GLOBULIN RATIO 0.6 (0.8-2.0); CREATININE, SERUM 2.24 mg/dL (0.57-1.11)
[2018-01-24] MEDS: INSULIN LISPRO 100 UNIT/1 ML 3ML VIAL SQ SCH (07:30)
[2018-01-24] MEDS ORDERED: GLIMEPIRIDE 2 MG TAB PO SCH (08:00)
[2018-01-24] MEDS: RIFAXIMIN 550 MG TABLET PO SCH (08:28)
[2018-01-24] MEDS: FUROSEMIDE 40 MG TAB PO SCH (08:28)
[2018-01-24] MEDS: LACTULOSE SYRUP 20 GM/30 ML UDC PO SCH (08:28)
[2018-01-24 08:32] VITALS: BP 117/57
[2018-01-24] MEDS: HYDROCODONE/APAP 7.5MG-325MG 1 EA TAB PO PRN (08:33)
[2018-01-24] MEDS ORDERED: VILAZODONE HYDROCHLORIDE 40 MG PO SCH (09:00)
[2018-01-24] MEDS ORDERED: METOLAZONE 5 MG TAB PO SCH (09:00)
[2018-01-24] MEDS ORDERED: SPIRONOLACTONE 25 MG TAB PO SCH (09:00)
[2018-01-24 09:50] VITALS: BP 117/57
[2018-01-24 12:03] VITALS: BP 118/57
--- NOTE | 2018-01-24 15:03 | Discharge Summary ---
A 57-year-old female patient with history of advanced liver disease, admitted with encephalopathy with ammonia of 176. Patient also had acute kidney injury. Patient was admitted, treated with lactulose and rifaximin. Symptoms improved. She is more alert and awake. She is eating and talking. She will be discharged home. Patient advised to continue lactulose at home, also to cut down the pain medications which can make the encephalopathy worse. Patient verbalized understanding. DISCHARGE DIAGNOSES 1. Hepatic encephalopathy. 2. End-stage liver disease. FOLLOWUP: Patient also advised to follow up with the private investigator and also to call the liver transplant clinic. GAL HERNANDEZ MD Job#: [id number] AKU
== END 2018-01-24 12:15 | disposition home or self-care (01) ==
LOC: ER 04:09 → ERHOLD 06:14 → IMCU 07:25
PROVIDERS: ADMIT Internal Medicine; ATTEND Internal Medicine
DX: K72.90 Hepatic failure, unspecified without coma (principal); E66.01 Morbid (severe) obesity due to excess calories; E11.9 Type 2 diabetes mellitus without complications; K74.60 Unspecified cirrhosis of liver; K76.0 Fatty (change of) liver, not elsewhere classified; N17.9 Acute kidney failure, unspecified; Z68.43 Body mass index [BMI] 50.0-59.9, adult
CPT/HCPCS: 36415 ×2; 80053 ×2; 82140; 82550; 82553; 82948 ×2; 83605; 84484; 85025 ×2; 85610; 85730; 94640; 99283; G0378 ×2

== ENCOUNTER 2018-01-30 11:26 | Observation (INO) | payer MEDICARE, OTHER ==
[~2018-01-30] VITALS: Ht 172.7 cm; Wt 161.1 kg
[2018-01-30 12:28] LABS: BASOPHILS % 0.5 % (0.0-1.0); EOSINOPHILS # (AUTO) 0.1 (0.0-0.4); EOSINOPHILS % 2.6 % (0.0-6.0); HEMATOCRIT 37.2 % (34.2-44.1); HEMOGLOBIN 12.8 g/dL (12.0-16.0); LYMPHOCYTES % 24.1 % (18.0-39.1); MEAN CORPUSCULAR HGB CONC 34.4 g/dL (31-35); MEAN CORPUSCULAR VOLUME 98.7 fL (81-99); MONOCYTES # (AUTO) 0.5 (0.2-0.8); MONOCYTES % 11.3 % (4.4-11.3); NEUTROPHILS # (AUTO) 2.6 (2.1-6.9); NEUTROPHILS % 61.3 % (38.7-80.0); PLATELET COUNT 113 x10e3/uL (140-360); RED BLOOD COUNT 3.77 x10e6/uL (3.6-5.1); RED CELL DISTRIBUTION WIDTH 14.4 % (11.7-14.4)
[2018-01-30] MEDS ORDERED: LACTULOSE SYRUP 20 GM/30 ML UDC PO ONE (12:30)
[2018-01-30 12:46] LABS: ALBUMIN 2.9 g/dL (3.5-5.0); ALBUMIN/GLOBULIN RATIO 0.6 (0.8-2.0); ANION GAP 17.1 mmol/L (8-16); CALCIUM 9.8 mg/dL (8.4-10.2); CREATININE, SERUM 2.22 mg/dL (0.57-1.11); POTASSIUM 4.1 mmol/L (3.5-5.1)
[2018-01-30 22:00] VITALS: BP 126/58
[2018-01-30 22:36] VITALS: BP 120/84
[2018-01-30] MEDS ORDERED: DEXTROSE 50% SYRINGE 50 ML IV PRN (23:00)
[2018-01-30 23:16] VITALS: BP 120/84
[2018-01-31] VITALS (9 sets, daily range): BP systolic 101–136; BP diastolic 51–74
[2018-01-31] MEDS: INSULIN LISPRO 100 UNIT/1 ML 3ML VIAL SQ SCH ×4 (07:30→21:13)
[2018-01-31] MEDS: GLIMEPIRIDE 2 MG TAB PO SCH (08:51)
[2018-01-31] MEDS: SPIRONOLACTONE 25 MG TAB PO SCH (08:51)
[2018-01-31] MEDS: VILAZODONE HYDROCHLORIDE 40 MG PO SCH (08:52)
[2018-01-31] MEDS: MAGNESIUM OXIDE 400 MG TAB PO SCH (08:52)
[2018-01-31] MEDS: FUROSEMIDE 40 MG TAB PO SCH ×3 (08:52→21:11)
[2018-01-31] MEDS: METOLAZONE 5 MG TAB PO SCH (08:52)
[2018-01-31] MEDS: RIFAXIMIN 550 MG TABLET PO SCH ×2 (08:52→17:36)
[2018-01-31] MEDS ORDERED: LACTULOSE SYRUP 20 GM/30 ML UDC PO SCH (09:00)
[2018-01-31] MEDS: LACTULOSE SYRUP 20 GM/30 ML UDC PO SCH ×3 (12:49→21:10)
--- NOTE | 2018-01-31 13:41 | History and Physical ---
CHIEF COMPLAINT: Altered mental status. HISTORY OF PRESENT ILLNESS: A 57-year-old female patient with recurrent admission for hepatic encephalopathy. She was recently discharged home 5 days back. Patient was taking the lactulose as prescribed. However, she was more lethargic. She was in the toilet, unable to get up, sleeping about 2 hours in the toilet. So the family called the ambulance. Patient was brought in. She is still lethargic, confused, disoriented and calling her niece with the wrong name. She is admitted for hepatic encephalopathy. Her ammonia was elevated. PAST MEDICAL HISTORY: Liver cirrhosis from DORSEY, morbid obesity, diabetes mellitus, chronic pain. PERSONAL HISTORY: History of smoking. No history of alcohol use. PHYSICAL EXAMINATION VITAL SIGNS: Height 5 feet 8 inches, weight 366 pounds, blood pressure 108/65. HEENT: Normal. NECK: No JVD. LUNGS: Bilateral air entry diminished. CARDIOVASCULAR: Normal. ABDOMEN: Protuberant. Bowel sounds normal. LOWER EXTREMITIES: Edema present. LABS: Reviewed. ASSESSMENT: Hepatic encephalopathy secondary to nonalcoholic steatohepatitis. PLAN: Will keep giving lactulose q.i.d. Discharge plan when she is more awake and starts eating. Blood sugar and sliding-scale coverage. Job#: [id number] EV
[2018-01-31] MEDS: HYDROCODONE/APAP 7.5MG-325MG 1 EA TAB PO PRN (20:03)
[2018-01-31] MEDS: IPRATROPIUM/ALBUTEROL SULFATE 4 GM INH INH PRN (20:15)
[2018-01-31] MEDS ORDERED: SERTRALINE HCL 100 MG TAB PO SCH (21:00)
[2018-01-31] MEDS ORDERED: ATORVASTATIN 40 MG TAB PO SCH (21:00)
[2018-02-01 04:30] VITALS: BP 123/61
[2018-02-01] MEDS: HYDROCODONE/APAP 7.5MG-325MG 1 EA TAB PO PRN (06:02)
[2018-02-01] MEDS: GLIMEPIRIDE 2 MG TAB PO SCH (07:28)
[2018-02-01] MEDS: INSULIN LISPRO 100 UNIT/1 ML 3ML VIAL SQ SCH (07:30)
[2018-02-01 07:52] VITALS: BP 121/64
[2018-02-01 08:02] VITALS: BP 121/64
[2018-02-01] MEDS: SPIRONOLACTONE 25 MG TAB PO SCH (08:50)
[2018-02-01] MEDS: MAGNESIUM OXIDE 400 MG TAB PO SCH (08:50)
[2018-02-01] MEDS: METOLAZONE 5 MG TAB PO SCH (08:50)
[2018-02-01] MEDS: RIFAXIMIN 550 MG TABLET PO SCH (08:50)
[2018-02-01] MEDS: FUROSEMIDE 40 MG TAB PO SCH (08:50)
[2018-02-01] MEDS: LACTULOSE SYRUP 20 GM/30 ML UDC PO SCH (08:50)
[2018-02-01] MEDS: VILAZODONE HYDROCHLORIDE 40 MG PO SCH (08:54)
[2018-02-01] MEDS: IPRATROPIUM/ALBUTEROL SULFATE 4 GM INH INH PRN ×2 (09:51→11:25)
[2018-02-01 11:30] VITALS: BP 138/72
--- NOTE | 2018-02-04 15:41 | Discharge Summary ---
A 57-year-old female patient admitted with hepatic encephalopathy with lethargy, confusion, not eating. Patient has multiple hospitalizations for same problem. Patient claims that generic lactulose is not working. Patient was given prescription for brand name lactulose, advised to comply with medications, and she was discharged home with the same medications. MEDICATIONS: Reconciled. DIET: Diabetic diet. DISCHARGE DIAGNOSES 1. Hepatic encephalopathy. 2. End-stage liver disease secondary to nonalcoholic steatohepatitis. GAL HERNANDEZ MD Job#: [id number] EV
--- OUTSIDE RECORDS SUMMARY | 2018-02-11 10:38 | XMS REPORT | Clinical Summary ---
Author Author HANNAH [facility] Address Unknown Phone Unavailable Care Team Providers Care Heel Splitter Name Role Phone PCP Unavailable Allergies Active Allergy Reactions Severity Noted Date Comments Atorvastatin 02/09/2018 Elevated CK, myopathy Current Medications Prescription Sig. Disp. Refills Start End Date Status Date glimepiride (AMARYL) 2 MG 2 10/14/19 Active tablet 17 metOLazone (ZAROXOLYN) 10 2 10/14/19 Active MG tablet 17 furosemide (LASIX) 40 MG 2 (two) times daily . 2 10/14/19 Active tablet 17 propranolol (INDERAL) 20 2 10/14/19 Active MG tablet 17 sertraline (ZOLOFT) 100 Take 150 mg by mouth 0 10/13/19 Active MG tablet daily . 17 CONSTULOSE 10 gram/15 mL Take 60 mLs by mouth 3 2 10/12/19 Active solution (three) times daily . 17 NOVOLIN N 100 unit/mL 60 Units . 2 10/14/19 Active injection 17 HYDROcodone-acetaminophen Take 1 tablet by mouth Active (NORCO 7.5-325) 7.5-325 every 8 (eight) hours as mg per tablet needed for Pain. spironolactone Take 50 mg by mouth 2 Active (ALDACTONE) 50 MG tablet (two) times daily . albuterol-ipratropium Inhale 2 puffs by mouth Active (COMBIVENT) 18-103 via inhaler every 6 (six) mcg/actuation inhaler hours as needed for Wheezing. furosemide (LASIX) 20 MG Take 60 mg by mouth 2 Active tablet (two) times daily. omeprazole (PRILOSEC) 40 Twice A Day Active MG capsule insulin aspart U-100 Inject 30 Units Active (NOVOLOG) 100 unit/mL subcutaneously 3 (three) InPn times daily with meals. insulin degludec (TRESIBA Inject 60 Units Active FLEXTOUCH U-200 SUBQ) subcutaneously. magnesium oxide (MAG-OX) Take 400 mg by mouth Active 400 mg tablet daily. rifAXIMin 550 mg Tab Take 550 mg by mouth 2 Active (two) times daily. vilazodone 40 mg tablet Take 40 mg by mouth Active daily. triamcinolone (KENALOG) Apply topically 2 (two) Active 0.5 % ointment times daily 1 application to affected area externally . atorvastatin (LIPITOR) 40 Take 40 mg by mouth 02/10/20 Discontin MG tablet daily. 18 ued Active Problems Problem Noted Date Steatohepatitis, non-alcoholic 08/13/2017 Abnormal iron saturation 11/07/2016 Morbid obesity due to excess calories 10/15/2016 Immunity status testing 10/15/2016 Screening for malignant neoplasm 10/15/2016 Abnormal liver enzymes 10/15/2016 Hyperlipidemia 10/15/2016 Metabolic syndrome 10/15/2016 Cirrhosis 10/15/2016 Last Assessment & Plan: Cirrhosis diagnosed based on a constellation of clinical complications and imaging. Encounters Date Type Specialty Care Team Description 02/07/2018 Abstract Transplant Hepatology Maldonado Rodgers MD 02/06/2018 Telephone Hepatology Natali Goldberg NP Results 02/06/2018 Orders Only Hepatology Natali Goldberg NP 02/05/2018 Office Visit Hepatology Umer Reis MD Other cirrhosis of liver (HCC) (Primary Dx);Morbid obesity due to excess calories ;Screening for malignant neoplasm;Immunity status testing;Abnormal liver enzymes;Hyperlipidemia, unspecified hyperlipidemia type;Metabolic syndrome;Steatohepatitis, non-alcoholic;Elevated CK;Adnexal mass;Acute kidney injury (HCC) 01/31/2018 Abstract Transplant Carmen Cortez MA 01/28/2018 Telephone Hepatology Maria T De La Torre RN Appointment 01/24/2018 Documentation Hepatology Maria T De La Torre RN 12/11/2017 Abstract Hepatology Valente Buck 11/20/2017 Orders Only Hepatology Nabil Garcia PA Increased creatine kinase level (Primary Dx) 11/19/2017 [facility] Radiology Jarret Salas MD Other cirrhosis of liver Encounter (HCC) 11/19/2017 Outside Orders Radiology Jarret Salas MD Other cirrhosis of liver (HCC) (Primary Dx) 11/14/2017 Orders Only Hepatology Nabil Garcia PA Other cirrhosis of liver (HCC) 11/14/2017 Telephone Hepatology Nabil Garcia PA Results 11/12/2017 Office Visit Hepatology Jarret Salas MD Other cirrhosis of liver (HCC) (Primary Dx) 10/22/2017 Abstract Hepatology Maria T De La Torre RN 10/16/2017 Abstract Hepatology Ana Stanton RN 10/16/2017 Abstract Hepatology Ana Stanton RN 09/27/2017 Abstract Hepatology Maria T De La Torre RN 09/24/2017 Abstract Hepatology Maria T De La Torre RN 09/24/2017 Documentation Hepatology Maria T De La Torre RN 08/13/2017 Office Visit Hepatology Jarret Salas MD Other cirrhosis of liver Santana Emmieabdulkadir [place], (HCC) (Primary Dx);Morbid PA-C obesity due to excess calories ;Metabolic syndrome;Steatohepatitis, non-alcoholic;Fatty liver disease, nonalcoholic;Screening for malignant neoplasm;Lymph nodes enlarged 07/31/2017 Outside Orders Radiology Umer Reis MD 06/19/2017 [facility] Radiology Umer Reis MD Other cirrhosis of liver Encounter (HCC);Abnormal liver enzymes 06/19/2017 Telephone Hepatology Rosario De Souza RN Appointment (ultrasound) 06/19/2017 Orders Only Hepatology Umer Reis MD Other cirrhosis of liver (HCC) (Primary Dx) 06/07/2017 Outside Orders Umer Reis MD 04/11/2017 Documentation Hepatology Tessa Boykin FNP 04/10/2017 Office Visit Hepatology Umer Reis MD Other cirrhosis of liver (HCC) (Primary Dx);Immunity status testing;Screening for malignant neoplasm;Abnormal liver enzymes;Morbid obesity due to excess calories ;Iron overload 02/04/2017 Abstract Hepatology Ana Stanton RN after 01/29/2017 Family History Medical History Relation Name Comments Cancer Maternal Aunt Cancer Maternal Grandmother Cancer Mother Relation Name Status Comments Maternal Aunt Maternal Grandmother Mother Social History Tobacco Use Types Packs/Day Years Used Date Current Every Day Smoker Smokeless Tobacco: Never Used Tobacco Cessation: Ready to Quit: No; Counseling Given: Yes Alcohol Use Drinks/Week oz/Week Comments No Sex Assigned at Date Recorded Not on file Last Filed Vital Signs Vital Sign Reading Time Taken Blood Pressure 133/79 02/05/2018 11:20 AM CDT Pulse 86 02/05/2018 11:20 AM CDT Temperature 36.6 C (97.9 F) 02/05/2018 11:20 AM CDT Respiratory Rate 16 02/05/2018 11:20 AM CDT Oxygen Saturation 98% 02/05/2018 11:20 AM CDT Inhaled Oxygen - - Concentration Weight 153.9 kg (339 lb 3.2 oz) 02/05/2018 11:20 AM CDT Height 173 cm (5' 8.11") 02/05/2018 11:20 AM CDT Body Mass Index 51.41 02/05/2018 11:20 AM CDT Plan of Treatment Date Type Specialty Care Team Description 03/04/2018 Office Visit Hepatology Resource, [facility] Hep[facility]ology Clinic B 05/01/2018 Office Visit Hepatology Umer Reis MD [address] [address] Eddie jones [facility] Hepatology [facility] B Health Maintenance Due Date Last Done Comments INFLUENZA VACCINE 01/27/2018 Results * CBC with platelet count + automated diff (02/05/2018 1:31 PM) Only the most recent of 4 results within the time period is included. Component Value Ref Range WBC 5.0 3.5 - 10.5 K/L RBC 3.75 (L) 3.93 - 5.22 M/L Hemoglobin 12.8 11.2 - 15.7 GM/DL Hematocrit 38.6 34.1 - 44.9 % MCV 102.9 (H) 79.4 - 94.8 fL MCH 34.1 (H) 25.6 - 32.2 pg MCHC 33.2 32.2 - 35.5 GM/DL RDW 14.8 (H) 11.7 - 14.4 % Platelets 120 (L) 150 - 450 K/CU MM MPV 11.0 9.4 - 12.3 fL nRBC 0 0 - 0 /100 WBC % Neutros 53 % % Lymphs 29 % % Monos 16 % % Eos 2 % % Baso 1 % # Neutros 2.67 1.56 - 6.13 K/L # Lymphs 1.44 1.18 - 3.74 K/L # Monos 0.79 (H) 0.24 - 0.36 K/L # Eos 0.10 0.04 - 0.36 K/L # Baso 0.03 0.01 - 0.08 K/L Immature 0 0 - 1 % Granulocytes-Relative Specimen Performing Laboratory Blood [address] [address] * Pro-time/INR (02/05/2018 1:31 PM) Only the most recent of 4 results within the time period is included. Component Value Ref Range Protime 16.7 (H) 11.7 - 14.7 seconds INR 1.4 <=5.9 Specimen Performing Laboratory [address] [address] Narrative RECOMMENDED COUMADIN/WARFARIN INR THERAPY RANGES STANDARD DOSE: 2.0 - 3.0 Includes: PROPHYLAXIS for venous thrombosis, systemic embolization; TREATMENT for venous thrombosis and/or pulmonary embolus. HIGH RISK: Target INR is 2.5-3.5 for patients with mechanical heart valves. * CBC with platelet count + automated diff (02/05/2018 1:31 PM) Only the most recent of 5 results within the time period is included. Specimen Performing Laboratory Blood [facility] ([facility]) Narrative The following orders were created for panel order CBC with platelet count + automated diff. Procedure Abnormality Status --------- ------ CBC with platelet count ...[[id number]]AbnormalFinal result Please view results for these tests on the individual orders. * Creatine Kinase (CK) (02/05/2018 1:31 PM) Component Value Ref Range Total CK 336 (H) 29 - 200 U/L Specimen Performing Laboratory Blood [address] [address] * Hepatic function panel (02/05/2018 1:31 PM) Only the most recent of 4 results within the time period is included. Component Value Ref Range Protein, Total 7.8 6.0 - 8.3 gm/dL Albumin 3.3 (L) 3.5 - 5.0 g/dL Total Bilirubin 2.1 (H) 0.2 - 1.2 mg/dL Bilirubin, Direct 1.0 (H) 0.1 - 0.5 mg/dL Alkaline Phosphatase 228 (H) 40 - 150 U/L AST 55 (H) 5 - 34 U/L ALT 32 6 - 55 U/L Specimen Performing Laboratory Blood [address] [address] Narrative Specimen slightly icteric * Basic Metabolic Panel (02/05/2018 1:31 PM) Only the most recent of 4 results within the time period is included. Component Value Ref Range Sodium 142 136 - 145 meq/L Potassium 3.9 3.5 - 5.1 meq/L Chloride 103 98 - 107 meq/L CO2 28 22 - 29 meq/L BUN 53 (H) 7 - 21 mg/dL Creatinine 2.18 (H) 0.57 - 1.25 mg/dL Glucose 103 70 - 105 mg/dL Calcium 10.2 8.4 - 10.2 mg/dL EGFR 23Comment: ESTIMATED GFR IS NOT ACCURATE mL/min/1.73 sq m CREATININE CLEARANCE IN PREDICTING GLOMERULAR FILTRATION RATE. ESTIMATED GFR IS NOT APPLICABLE FOR DIALYSIS PATIENTS. Specimen Performing Laboratory Blood [address] [address] Narrative Specimen slightly icteric * MR abdomen without & with IV contrast (11/19/2017 12:40 PM) Specimen Performing Laboratory [employer] [facility] Narrative FINAL REPORT TECHNIQUE: MRI of the abdomen WITHOUT and WITH intravenous contrast. INDICATION: 56-year-old woman with cirrhosis. COMPARISON: Abdomen CT 10/24/2016. FINDINGS: Suboptimal evaluation secondary to patient body habitus. LOWER THORAX: Unremarkable. LIVER: Cirrhotic morphology of the liver. No definite suspicious hepatic lesions. BILIARY: Prior cholecystectomy. No biliary ductal dilatation or filling defect. SPLEEN: Enlarged spleen measures 13.8 cm in the craniocaudal dimension. PANCREAS: No focal masses or ductal dilatation. ADRENALS: No adrenal nodules. KIDNEYS/URETERS: No hydronephrosis or solid mass lesions. 2.8 cm left renal cyst. PERITONEUM/RETROPERITONEUM: No free fluid. LYMPH NODES: No lymphadenopathy. VESSELS: Portal system and hepatic veins appear patent. The main portal vein measures approximately 1 cm in diameter. Perisplenic/left retroperitoneal varices. GI TRACT: No distention or wall thickening. BONES AND SOFT TISSUES: Unchanged mild compression deformity at T12. Soft tissues are unremarkable. IMPRESSION: Suboptimal evaluation secondary to body habitus. Cirrhosis with portal hypertension. No definite suspicious liver lesions. Signed: John Leiva MD Report Verified Date/Time:11/19/2017 16:09:13 Reading Location: [facility] C013Y CT Body Reading Room Procedure Note Interface, External Ris In - 11/19/2017 4:11 PM CDT FINAL REPORT TECHNIQUE: MRI of the abdomen WITHOUT and WITH intravenous contrast. INDICATION: 56-year-old woman with cirrhosis. COMPARISON: Abdomen CT 10/24/2016. FINDINGS: Suboptimal evaluation secondary to patient body habitus. LOWER THORAX: Unremarkable. LIVER: Cirrhotic morphology of the liver. No definite suspicious hepatic lesions. BILIARY: Prior cholecystectomy. No biliary ductal dilatation or filling defect. SPLEEN: Enlarged spleen measures 13.8 cm in the craniocaudal dimension. PANCREAS: No focal masses or ductal dilatation. ADRENALS: No adrenal nodules. KIDNEYS/URETERS: No hydronephrosis or solid mass lesions. 2.8 cm left renal cyst. PERITONEUM/RETROPERITONEUM: No free fluid. LYMPH NODES: No lymphadenopathy. VESSELS: Portal system and hepatic veins appear patent. The main portal vein measures approximately 1 cm in diameter. Perisplenic/left retroperitoneal varices. GI TRACT: No distention or wall thickening. BONES AND SOFT TISSUES: Unchanged mild compression deformity at T12. Soft tissues are unremarkable. IMPRESSION: Suboptimal evaluation secondary to body habitus. Cirrhosis with portal hypertension. No definite suspicious liver lesions. Signed: John Leiva MD Report Verified Date/Time: 11/19/2017 16:09:13 Reading Location: [facility] C013Y CT Body Reading Room * Comprehensive metabolic panel (11/18/2017 2:10 PM) Component Value Ref Range Glucose, Serum 203 (H) 65 - 99 mg/dL BUN 29 (H) 6 - 24 mg/dL Creatinine, Serum 1.28 (H) 0.57 - 1.00 mg/dL eGFR If NonAfricn Am 48 (L) >59 mL/min/1.73 eGFR If Africn Am 55 (L) >59 mL/min/1.73 BUN/Creatinine Ratio 23 9 - 23 Sodium, Serum 140 134 - 144 mmol/L Potassium, Serum 4.3 3.5 - 5.2 mmol/L Chloride, Serum 105 96 - 106 mmol/L Carbon Dioxide, Total 20 20 - 29 mmol/L Calcium, Serum 8.7 8.7 - 10.2 mg/dL Protein, Total, Serum 6.6 6.0 - 8.5 g/dL Albumin, Serum 2.9 (L) 3.5 - 5.5 g/dL Globulin, Total 3.7 1.5 - 4.5 g/dL A/G Ratio 0.8 (L) 1.2 - 2.2 Bilirubin, Total 2.0 (H) 0.0 - 1.2 mg/dL Alkaline Phosphatase, S 143 (H) 39 - 117 IU/L AST (SGOT) 33 0 - 40 IU/L ALT (SGPT) 15 0 - 32 IU/L Specimen Performing Laboratory Blood [facility] Narrative Performed at:[facility]Co[id number] An/Ssn 2 4 Operator: Harinder Heck MD, Phone:[phone] * Alpha fetoprotein (AFP), tumor marker (11/12/2017 2:50 PM) Only the most recent of 2 results within the time period is included. Component Value Ref Range Alpha-Fetoprotein 6.4 <10.0 ng/mL Specimen Performing Laboratory Blood [address] [address] * POC-Creatinine (06/19/2017 12:25 PM) Component Value Ref Range POC-Creatinine 1.9 (H)Comment: TESTED AT [address] 0.6 - 1.3 mg/dL [facility] [address] POC-EGFR 28 mL/min/1.73M2 Specimen Performing Laboratory [address] [address] * Iron, TIBC, % sat. (without ferritin) (04/10/2017 1:28 PM) Component Value Ref Range Iron 121 40 - 160 ug/dL TIBC 264 250 - 450 ug/dL Iron % Saturation 46 20 - 55 % Specimen Performing Laboratory Blood [facility] [address] [address] * Ferritin (04/10/2017 1:28 PM) Component Value Ref Range Ferritin 577 (H) 5 - 275 ng/mL Specimen Performing Laboratory Blood [facility] [address] [address] after 01/29/2017
--- OUTSIDE RECORDS SUMMARY | 2018-02-11 10:54 | XMS REPORT | Clinical Summary ---
Author Author HANNAH [facility]North [facility] Center[facility]oli[facility] Address Unknown Phone Unavailable Care Team Providers Care Information Technology Analyst Name Role Phone PCP Unavailable Allergies Active [...] Increased creatine kinase level (Primary Dx) 11/19/2017 [facility] Radiology Jarret Salas MD Other cirrhosis of liver Encounter (HCC) 11/19/2017 Outside Orders Radiology Jarret Salas MD Other cirrhosis of liver (HCC) (Primary Dx) 11/14/2017 Orders Only Hepatology Nabil Garcia PA Other cirrhosis of liver (HCC) 11/14/2017 Telephone Hepatology Nabil Garcia PA Results 11/12/2017 Office Visit Hepatology Jarrte Salas MD Other cirrhosis of liver (HCC) [...] Outside Orders Radiology Umer Reis MD 06/19/2017 [facility] Radiology Umer Reis MD Other cirrhosis of [...] Team Description 03/04/2018 Office Visit Hepatology Resource, [facility] Hepatology Clinic B 05/01/2018 Office Visit Hepatology Umer Reis MD [address] [address] Eddie jones [facility] Hepatology Clinic B Health Maintenance Due Date [...] 1 % Granulocytes-Relative Specimen Performing Laboratory Blood [address] [address] * Pro-time/INR (02/05/2018 1:31 PM) Only the most recent of 4 results within the time period is included. Component Value Ref Range Protime 16.7 (H) 11.7 - 14.7 seconds INR 1.4 <=5.9 Specimen Performing Laboratory [address] [address] Narrative RECOMMENDED COUMADIN/WARFARIN INR THERAPY RANGES STANDARD [...] period is included. Specimen Performing Laboratory Blood [facility] ([facility]) Narrative The following orders were created for panel order CBC with platelet count + automated diff. Procedure Abnormality Status --------- ------ CBC with platelet count ...[[id number]]AbnormalFinal result Please view results for these tests on the individual orders. * Creatine Kinase (CK) (02/05/2018 1:31 PM) Component Value Ref Range Total CK 336 (H) 29 - 200 U/L Specimen Performing Laboratory Blood [address] [address] * Hepatic function panel (02/05/2018 1:31 PM) [...] - 55 U/L Specimen Performing Laboratory Blood [address] [address] Narrative Specimen slightly icteric * Basic Metabolic [...] FOR DIALYSIS PATIENTS. Specimen Performing Laboratory Blood [address] [address] Narrative Specimen slightly icteric * MR abdomen without & with IV contrast (11/19/2017 12:40 PM) Specimen Performing Laboratory [employer] [facility] Narrative FINAL REPORT TECHNIQUE: MRI of [...] MD Report Verified Date/Time:11/19/2017 16:09:13 Reading Location: [facility] C013Y CT Body Reading Room Procedure [...] Report Verified Date/Time: 11/19/2017 16:09:13 Reading Location: [facility] C013Y CT Body Reading Room * [...] Specimen Performing Laboratory Blood [facility] Narrative Performed at:[id number] Data Virtualization Consultant: Harinder Heck MD, Phone:[phone] * Alpha fetoprotein (AFP), tumor marker (11/12/2017 2:50 PM) Only the most recent of 2 results within the time period is included. Component Value Ref Range Alpha-Fetoprotein 6.4 <10.0 ng/mL Specimen Performing Laboratory Blood [address] [address] * POC-Creatinine (06/19/2017 12:25 PM) Component Value Ref Range POC-Creatinine 1.9 (H)Comment: TESTED AT [address] 0.[address] - 1.3 mg/dL [facility] [address] POC-EGFR 28 mL/min/1.73M2 Specimen Performing Laboratory [address] [address] * Iron, TIBC, % sat. (without ferritin) (04/10/2017 1:28 PM) Component Value Ref Range Iron 121 40 - 160 ug/dL TIBC 264 250 - 450 ug/dL Iron % Saturation 46 20 - 55 % Specimen Performing Laboratory Blood [facility] [address] [address] * Ferritin (04/10/2017 1:28 PM) Component Value Ref Range Ferritin 577 (H) 5 - 275 ng/mL Specimen Performing Laboratory Blood [facility] [address] [address] after 01/29/2017
== END 2018-02-01 12:35 | disposition home or self-care (01) ==
LOC: ER 11:26 → ERHOLD 16:09 → IMCU 22:14
PROVIDERS: ADMIT Internal Medicine; ATTEND Internal Medicine
DX: K72.90 Hepatic failure, unspecified without coma (principal); K75.81 Nonalcoholic steatohepatitis (NASH); E66.01 Morbid (severe) obesity due to excess calories; E11.9 Type 2 diabetes mellitus without complications; G89.29 Other chronic pain; Z68.43 Body mass index [BMI] 50.0-59.9, adult; Z79.4 Long term (current) use of insulin
CPT/HCPCS: 36415 ×3; 80053; 82140 ×2; 82948 ×3; 83605; 85025; 94640 ×2; 99284; G0378 ×3; J7799

== ENCOUNTER 2018-02-11 08:01 | Inpatient (IN) | payer MEDICARE, OTHER ==
[~2018-02-11] VITALS: Ht 170.2 cm; Wt 167.2 kg
[2018-02-11] VITALS (8 sets, daily range): BP systolic 110–125; BP diastolic 65–79
[2018-02-11] MEDS ORDERED: SODIUM CHLORIDE 0.9% 1000ML 1,000 ML IV STA (08:09)
[2018-02-11 09:23] LABS: BASOPHILS % 0.2 % (0.0-1.0); EOSINOPHILS # (AUTO) 0.1 (0.0-0.4); HEMATOCRIT 32.9 % (34.2-44.1); HEMOGLOBIN 11.7 g/dL (12.0-16.0); LYMPHOCYTES # (AUTO) 0.9 (1.0-3.2); LYMPHOCYTES % 19.1 % (18.0-39.1); MEAN CORPUSCULAR HEMOGLOBIN 34.7 pg (28-32); MEAN CORPUSCULAR HGB CONC 35.6 g/dL (31-35); MEAN CORPUSCULAR VOLUME 97.6 fL (81-99); MONOCYTES # (AUTO) 0.8 (0.2-0.8); MONOCYTES % 18.7 % (4.4-11.3); NEUTROPHILS # (AUTO) 2.7 (2.1-6.9); NEUTROPHILS % 59.8 % (38.7-80.0); PLATELET COUNT 93 x10e3/uL (140-360); RED BLOOD COUNT 3.37 x10e6/uL (3.6-5.1); RED CELL DISTRIBUTION WIDTH 13.9 % (11.7-14.4)
--- NOTE | 2018-02-11 09:32 | Diagnostic Imaging Report ---
PROCEDURE: A single AP view of the chest. COMPARISON: Chest radiograph 01/04/18. INDICATIONS: AMS FINDINGS: Exam is markedly limited by portable technique, low lung volumes, and motion. Lines/tubes: None. Lungs: Low lung volumes. There is patchy opacity in the left lung base. Pleura: No large pneumothorax or pleural effusion. Heart and mediastinum: The cardiomediastinal silhouette is unchanged and prominent. Bones: No acute bony abnormality is visualized although evaluation is limited. IMPRESSION: Markedly limited exam as above. Patchy left basilar opacity which could reflect atelectasis, aspiration, or pneumonia in the appropriate clinical setting. Repeat radiograph is suggested for further evaluation. Dictated by: GODFREY MCCORD M.D. on 02/11/2018 at 9:40 Electronically approved by: GODFREY MCCORD M.D. on 02/11/2018 at 9:40
[2018-02-11 09:48] LABS: ALBUMIN 2.8 g/dL (3.5-5.0); ALBUMIN/GLOBULIN RATIO 0.7 (0.8-2.0); ANION GAP 18.9 mmol/L (8-16); CALCIUM 9.2 mg/dL (8.4-10.2); CREATININE, SERUM 1.98 mg/dL (0.57-1.11); POTASSIUM 3.9 mmol/L (3.5-5.1)
[2018-02-11 09:56] LABS: BILIRUBIN,URINE NEGATIVE (NEGATIVE); CLARITY,URINE CLEAR (CLEAR); COLOR,URINE YELLOW (YELLOW); KETONES,URINE NEGATIVE (NEGATIVE); LEUKOCYTE ESTERASE ,URINE NEGATIVE (NEGATIVE); NITRITE,URINE NEGATIVE (NEGATIVE); PROTEIN,URINE DIPSTICK NEGATIVE (NEGATIVE); URINE UROBILINOGEN 0.2 mg/dL (0.2 - 1)
[2018-02-11 09:59] LABS: BACTERIA,URINE FEW /HPF; EPITHELIAL CELLS,URINE FEW /LPF; RBC,URINE 0-5 /HPF (0-5); WBC,URINE (MAN) 0-5 /HPF (0-5)
[2018-02-11 10:07] LABS: THYROID STIMULATING HORMONE 0.608 uIU/mL (0.350-4.940)
[2018-02-11] MEDS ORDERED: LACTULOSE SYRUP 20 GM/30 ML UDC NG ONE (10:30)
[2018-02-11] MEDS ORDERED: LACTULOSE SYRUP 20 GM/30 ML UDC ONE (10:31)
[2018-02-11] MEDS ORDERED: ONDANSETRON HCL INJ 2 MG/ML VIAL IV PRN (10:45)
[2018-02-11] MEDS ORDERED: LACTULOSE SYRUP 20 GM/30 ML UDC NG SCH (12:00)
[2018-02-11] MEDS: RIFAXIMIN 550 MG TABLET NG SCH ×2 (12:08→16:53)
[2018-02-11] MEDS: SODIUM CHLORIDE 0.9% 1000ML 1,000 ML IV SCH ×3 (12:08→23:47)
[2018-02-11] MEDS ORDERED: NOVOLOG100 UNITS1 SQ (12:23)
[2018-02-11] MEDS ORDERED: ZOLOFT50 MG PO (12:24)
--- OUTSIDE RECORDS SUMMARY | 2018-02-11 14:41 | XMS REPORT | Clinical Summary ---
Author Author HANNAH [facility] Address Unknown Phone Unavailable Care Team Providers Care Information Coder Name Role Phone PCP Unavailable Allergies Active [...] Increased creatine kinase level (Primary Dx) 11/19/2017 [facility] Radiology Jarret Salas MD Other cirrhosis of [...] Outside Orders Radiology Umer Reis MD 06/19/2017 [facility] Radiology Umer Reis MD Other cirrhosis of [...] obesity due to excess calories ;Iron overload after 02/10/2017 Family History Medical History Relation Name Comments [...] Team Description 03/04/2018 Office Visit Hepatology Resource, [facility] Hepatology Clinic B 05/01/2018 Office Visit Hepatology Umer Reis MD [address] [address] Eddie jones [facility] Hepatology Clinic B Health Maintenance Due Date [...] 1 % Granulocytes-Relative Specimen Performing Laboratory Blood [address] [address] * Pro-time/INR (02/05/2018 1:31 PM) Only the most recent of 4 results within the time period is included. Component Value Ref Range Protime 16.7 (H) 11.7 - 14.7 seconds INR 1.4 <=5.9 Specimen Performing Laboratory Blood [address] [address] Narrative RECOMMENDED COUMADIN/WARFARIN INR THERAPY RANGES STANDARD [...] period is included. Specimen Performing Laboratory Blood [facility] ([place]) Narrative The following orders were created for panel order CBC with platelet count + automated diff. Procedure Abnormality Status --------- ------ CBC with platelet count ...[[id number]]AbnormalFinal result Please view results for these tests on the individual orders. * Creatine Kinase (CK) (02/05/2018 1:31 PM) Component Value Ref Range Total CK 336 (H) 29 - 200 U/L Specimen Performing Laboratory Blood [address] [address] * Hepatic function panel (02/05/2018 1:31 PM) [...] - 55 U/L Specimen Performing Laboratory Blood [address] [address] Narrative Specimen slightly icteric * Basic Metabolic [...] FOR DIALYSIS PATIENTS. Specimen Performing Laboratory Blood [address] [address] Narrative Specimen slightly icteric * MR abdomen without & with IV contrast (11/19/2017 12:40 PM) Specimen Performing Laboratory [facility] Narrative FINAL REPORT TECHNIQUE: MRI of the [...] MD Report Verified Date/Time:11/19/2017 16:09:13 Reading Location: [facility] C013Y CT Body Reading Room Procedure Note [...] Report Verified Date/Time: 11/19/2017 16:09:13 Reading Location: [facility] C013Y CT Body Reading Room * Comprehensive [...] Specimen Performing Laboratory Blood [facility] Narrative Performed at:[id number] Die Cutter Operator: Harinder Heck MD, Phone:[phone] * Alpha fetoprotein (AFP), tumor marker (11/12/2017 2:50 PM) Only the most recent of 2 results within the time period is included. Component Value Ref Range Alpha-Fetoprotein 6.4 <10.0 ng/mL Specimen Performing Laboratory Blood [address] [address] * POC-Creatinine (06/19/2017 12:25 PM) Component Value Ref Range POC-Creatinine 1.9 (H)Comment: TESTED AT [address] 0.[address] - 1.3 mg/dL [facility] [address] POC-EGFR 28 mL/min/1.73M2 Specimen Performing Laboratory Blood [address] [address] * Iron, TIBC, % sat. (without ferritin) (04/10/2017 1:28 PM) Component Value Ref Range Iron 121 40 - 160 ug/dL TIBC 264 250 - 450 ug/dL Iron % Saturation 46 20 - 55 % Specimen Performing Laboratory Blood [address] [address] * Ferritin (04/10/2017 1:28 PM) Component Value Ref Range Ferritin 577 (H) 5 - 275 ng/mL Specimen Performing Laboratory Blood [facility] [address] [address] after 02/10/2017
--- OUTSIDE RECORDS SUMMARY | 2018-02-11 14:52 | XMS REPORT | Clinical Summary ---
Author Author [facility] Address Unknown Phone Unavailable Care Team Providers Care Compotype Operator Name Role Phone PCP Unavailable Allergies Active [...] Encounters Date Type Specialty Care Team Description 02/11/2018 Telephone Transplant Hepatology Loida Tena Liver Transplant Pre-evaluation (Spoke with Romana pt mother, pt is currently inpatient at [facility] due to Elevated pneumonia. Liver txp eval not scheduled at this time. ) 02/07/2018 Abstract Transplant Hepatology Maldonado Rodgers MD [...] Increased creatine kinase level (Primary Dx) 11/19/2017 [facility] Radiology Jarret Salas MD Other cirrhosis [...] T De La Torre RN 10/16/2017 Abstract HepatAna Asher RN 10/16/2017 Abstract Ana Prado RN 09/27/2017 Abstract HepatMaria T Ahn RN 09/24/2017 Abstract HepatMaria T Ahn RN 09/24/2017 Documentation Hepatology Maria T De La Torre RN 08/13/2017 Office Visit Hepatology Jarret Salas MD Other cirrhosis of liver Emmie Dillon, (HCC) (Primary Dx);Morbid PA-C obesity due to excess calories ;Metabolic syndrome;Steatohepatitis, non-alcoholic;Fatty liver disease, nonalcoholic;Screening for malignant neoplasm;Lymph nodes enlarged 07/31/2017 Outside Orders Radiology Umer Reis MD 06/19/2017 [facility] Radiology Umer Reis MD Other cirrhosis [...] Team Description 03/04/2018 Office Visit Hepatology Resource, [facility] B 05/01/2018 Office Visit Hepatology Umer Reis MD [address] [id number] Eddie jones [facility] B Health [...] 1 % Granulocytes-Relative Specimen Performing Laboratory Blood [address] [address] * Pro-time/INR (02/05/2018 1:31 PM) Only the most recent of 4 results within the time period is included. Component Value Ref Range Protime 16.7 (H) 11.7 - 14.7 seconds INR 1.4 <=5.9 Specimen Performing Laboratory Blood [address] [address] Narrative RECOMMENDED COUMADIN/WARFARIN INR THERAPY RANGES STANDARD [...] period is included. Specimen Performing Laboratory Blood [facility] ([facility]) Narrative The following orders were created for panel order CBC with platelet count + automated diff. Procedure Abnormality Status --------- ------ CBC with platelet count ...[[id number]]AbnormalFinal result Please view results for these tests on the individual orders. * Creatine Kinase (CK) (02/05/2018 1:31 PM) Component Value Ref Range Total CK 336 (H) 29 - 200 U/L Specimen Performing Laboratory Blood [address] [address] * Hepatic function panel (02/05/2018 1:31 PM) [...] - 55 U/L Specimen Performing Laboratory Blood [address] [address] Narrative Specimen slightly icteric * Basic Metabolic [...] FOR DIALYSIS PATIENTS. Specimen Performing Laboratory Blood [address] [address] Narrative Specimen slightly icteric * MR abdomen without & with IV contrast (11/19/2017 12:40 PM) Specimen Performing Laboratory Genalyte Narrative FINAL REPORT TECHNIQUE: MRI of the [...] hypertension. No definite suspicious liver lesions. Signed: Jhon Gipson MD Report Verified Date/Time:11/19/2017 16:09:13 Reading Location: [facility] C013Y CT Body Reading Room Procedure Note [...] No definite suspicious liver lesions. Signed: John Gipson MD Report Verified Date/Time: 11/19/2017 16:09:13 Reading Location: [facility] B1 C013Y CT Body Reading Room * Comprehensive [...] Specimen Performing Laboratory Blood [facility] Narrative Performed at:01 - [facility] [id number] Rags Laborer: Harinder Heck MD, Phone:[phone] * Alpha fetoprotein (AFP), tumor marker (11/12/2017 2:50 PM) Only the most recent of 2 results within the time period is included. Component Value Ref Range Alpha-Fetoprotein 6.4 <10.0 ng/mL Specimen Performing Laboratory Blood [address] [address] * POC-Creatinine (06/19/2017 12:25 PM) Component Value Ref Range POC-Creatinine 1.9 (H)Comment: TESTED AT [address] 0.6 - 1.3 mg/dL [facility] [address] POC-EGFR 28 mL/min/1.73M2 Specimen Performing Laboratory Blood [address] [address] * Iron, TIBC, % sat. (without ferritin) (04/10/2017 1:28 PM) Component Value Ref Range Iron 121 40 - 160 ug/dL TIBC 264 250 - 450 ug/dL Iron % Saturation 46 20 - 55 % Specimen Performing Laboratory Blood [address] [address] * Ferritin (04/10/2017 1:28 PM) Component Value Ref Range Ferritin 577 (H) 5 - 275 ng/mL Specimen Performing Laboratory Blood [address] [address] after 02/10/2017
[2018-02-11] MEDS: LACTULOSE SYRUP 20 GM/30 ML UDC NG SCH ×2 (17:00→23:47)
[2018-02-11] MEDS ORDERED: DEXTROSE 50% SYRINGE 50 ML IV PRN (17:15)
--- NOTE | 2018-02-11 17:37 | History and Physical ---
CHIEF COMPLAINT: Altered mental status. HISTORY OF PRESENT ILLNESS: A 57-year-old markedly obese female patient with history of DORSEY, end-stage liver disease, frequent hospitalization with encephalopathy. The patient has been on Lactulose 30 mL 3 times daily, and was having bowel movements 5 times daily. Today, she became unresponsive, and she was brought to the emergency room. Ammonia was 449. BUN 51, creatinine 1.98. The patient was recently seen at [facility] and she was added to the list. Now, she is unresponsive with NG tube. PAST MEDICAL HISTORY: Diabetes mellitus, DORSEY, end-stage liver disease, morbid obesity, chronic back pain, neuropathy. MEDICATIONS: 40 mg daily, Lasix 40 mg 2 tablets t.i.d., mg daily, Taylor 7.5 p.r.n., NovoLog 30 units 3 times daily, ipratropium albuterol Combivent inhaler q.6 h., rifaximin 550 mg b.i.d., Sertraline 150 mg daily. Aldactone 25 mg daily. Viibryd 40 mg daily. PERSONAL HISTORY: History of smoking. Denies alcohol use. ALLERGIES: NONE. PHYSICAL EXAMINATION VITAL SIGNS: Height 66 inches, weight 344 pounds. GENERAL: The patient is lethargic, arousable, cannot communicate with encephalopathy. HEENT: Normal. NECK: No JVD. LUNGS: Bilateral wheezing. CVS: Normal. ABDOMEN: Soft. EXTREMITIES: Lower extremities with trace edema present. ASSESSMENT: Hepatic encephalopathy and end-stage liver disease from DORSEY. Recurrent hospitalization. Chronic kidney disease. PLAN: Will hold the Lasix, Aldactone. Keep on NG tube on Lactulose. Control blood sugar. Monitor mental status. Breathing treatments for wheezing. Job#: [id number]
[2018-02-11] MEDS: ALBUTEROL/IPRATROPIUM 3 ML NEB NEB SCH ×2 (19:20→23:31)
--- NOTE | 2018-02-11 19:28 | Consultation ---
DATE OF CONSULTATION: February 11, 2018 This is a 57-year-old woman with history of end-stage liver disease from DORSEY who presented to the hospital because of mental status changes. The patient has become unresponsive and was found to have encephalopathy with ammonia levels of 149. The patient has been evaluated at [facility]. Her other medical problems include history of diabetes, history of DORSEY, history of onset of liver disease, morbid obesity, chronic back pain and neuropathy. HOME MEDICATIONS: Lasix, NovoLog, Combivent, rifaximin, and Aldactone. ALLERGIES: NONE. SOCIAL HISTORY: No alcohol use. FAMILY HISTORY: Noncontributory. REVIEW OF SYSTEMS: Denies any chest pain. Denies any shortness of breath. Denies any dysphagia or odynophagia. Denies any dysuria or hematuria or any kind of syncopal episode. PHYSICAL EXAMINATION GENERAL: The patient is awake but noncommunicative at this point and not in any acute distress. VITAL SIGNS: Afebrile with stable vital signs. HEENT: Normocephalic, atraumatic. Sclerae anicteric. NECK: Supple. HEART: Sounds regular. LUNGS: Clear. ABDOMEN: Soft. There is no distention at this point and is nontender. EXTREMITIES: No edema or clubbing. LABORATORY DATA: Significant for WBC of 4.4, hemoglobin 11.7, platelet count 93,000. BUN 51, creatinine 1.98, AST 44, ALT 31, alkaline phosphatase 187, ammonia level 449. IMPRESSION 1. Hepatic encephalopathy. 2. History of cirrhosis secondary to nonalcoholic steatohepatitis. 3. Pancytopenia. RECOMMENDATIONS: Continue on current medications with lactulose as well as rifaximin. Follow labs and supportive care. Job#: [id number] GH cc: GAL HERNANDEZ MD
[2018-02-11] MEDS: INSULIN LISPRO 100 UNIT/1 ML 3ML VIAL SQ SCH (21:00)
[2018-02-12] VITALS (10 sets, daily range): BP systolic 94–136; BP diastolic 56–74
[2018-02-12 05:14] LABS: BASOPHILS % 0.2 % (0.0-1.0); EOSINOPHILS # (AUTO) 0.1 (0.0-0.4); EOSINOPHILS % 0.9 % (0.0-6.0); HEMATOCRIT 34.3 % (34.2-44.1); HEMOGLOBIN 11.7 g/dL (12.0-16.0); LYMPHOCYTES # (AUTO) 0.8 (1.0-3.2); LYMPHOCYTES % 14.6 % (18.0-39.1); MEAN CORPUSCULAR HEMOGLOBIN 34.6 pg (28-32); MEAN CORPUSCULAR HGB CONC 34.1 g/dL (31-35); MONOCYTES # (AUTO) 0.9 (0.2-0.8); MONOCYTES % 15.6 % (4.4-11.3); NEUTROPHILS # (AUTO) 3.9 (2.1-6.9); NEUTROPHILS % 68.3 % (38.7-80.0); PLATELET COUNT 81 x10e3/uL (140-360); RED BLOOD COUNT 3.38 x10e6/uL (3.6-5.1); RED CELL DISTRIBUTION WIDTH 14.6 % (11.7-14.4)
[2018-02-12 05:19] LABS: MEAN CORPUSCULAR VOLUME 101.5 fL (81-99)
[2018-02-12 05:34] LABS: INR 1.37
[2018-02-12 05:35] LABS: PARTIAL THROMBOPLASTIN TIME 33.7 seconds (23.8-35.5)
[2018-02-12 05:38] LABS: ANION GAP 15.5 mmol/L (8-16); CREATININE, SERUM 1.63 mg/dL (0.57-1.11); POTASSIUM 3.5 mmol/L (3.5-5.1)
[2018-02-12] MEDS: LACTULOSE SYRUP 20 GM/30 ML UDC NG SCH ×3 (06:00→18:51)
--- NOTE | 2018-02-12 06:51 | Diagnostic Imaging Report ---
EXAMINATION: CHEST SINGLE (PORTABLE) INDICATION: Follow-up of left lower lobe density COMPARISON: 02/11/2018 FINDINGS: TUBES and LINES: Endotracheal tube is visualized 2.8 cm above the gianfranco. LUNGS: Lungs are not well inflated. There are bibasilar atelectasis. There is no evidence of pneumonia or pulmonary edema. PLEURA: No pleural effusion or pneumothorax. HEART AND MEDIASTINUM: The cardiomediastinal silhouette is unremarkable. BONES AND SOFT TISSUES: No acute osseous lesion. Soft tissues are unremarkable. UPPER ABDOMEN: No free air under the diaphragm. IMPRESSION: 1. No acute thoracic abnormality. 2. No evidence of left lower lobe airspace development Signed by: Dr. Edwin Bocanegra M.D. on 02/12/2018 6:48 AM
[2018-02-12] MEDS: ALBUTEROL/IPRATROPIUM 3 ML NEB NEB SCH ×2 (07:00→13:00)
[2018-02-12] MEDS: INSULIN LISPRO 100 UNIT/1 ML 3ML VIAL SQ SCH ×5 (07:30→21:52)
[2018-02-12] MEDS ORDERED: ACETAMINOPHEN 325 MG TAB PO PRN (09:30)
[2018-02-12] MEDS: RIFAXIMIN 550 MG TABLET NG SCH ×2 (10:12→17:42)
[2018-02-12] MEDS: SODIUM CHLORIDE 0.9% 1000ML 1,000 ML IV SCH ×2 (10:37→17:44)
[2018-02-12] MEDS: HYDROCODONE/APAP 7.5MG-325MG 1 EA TAB PO PRN ×2 (19:04→23:19)
[2018-02-12] MEDS: IPRATROPIUM/ALBUTEROL SULFATE 4 GM INH INH SCH ×2 (21:00→21:35)
[2018-02-12] MEDS ORDERED: NON-FORMULARY MEDICATION (Atorvastatin Calcium 40 MG) PO SCH (21:00)
[2018-02-12] MEDS: ATORVASTATIN 40 MG TAB PO SCH (21:35)
[2018-02-12] MEDS: SERTRALINE HCL 100 MG TAB PO SCH (21:50)
[2018-02-13] VITALS (7 sets, daily range): BP systolic 96–129; BP diastolic 53–64
[2018-02-13] MEDS: LACTULOSE SYRUP 20 GM/30 ML UDC NG SCH ×4 (00:34→17:39)
[2018-02-13] MEDS: INSULIN LISPRO 100 UNIT/1 ML 3ML VIAL SQ SCH ×7 (07:30→21:42)
[2018-02-13] MEDS: IPRATROPIUM/ALBUTEROL SULFATE 4 GM INH INH SCH ×4 (08:22→19:30)
[2018-02-13] MEDS: GLIMEPIRIDE 2 MG TAB PO SCH (08:22)
[2018-02-13] MEDS: RIFAXIMIN 550 MG TABLET NG SCH ×2 (08:22→17:38)
[2018-02-13] MEDS: MAGNESIUM OXIDE 400 MG TAB PO SCH (08:22)
[2018-02-13] MEDS: SERTRALINE HCL 50 MG TAB PO SCH (08:22)
[2018-02-13] MEDS: HYDROCODONE/APAP 7.5MG-325MG 1 EA TAB PO PRN ×3 (08:24→22:28)
[2018-02-13] MEDS: ATORVASTATIN 40 MG TAB PO SCH (21:00)
[2018-02-13] MEDS: SERTRALINE HCL 100 MG TAB PO SCH (21:42)
[2018-02-13] MEDS: FUROSEMIDE INJ 10 MG/ML 4 ML VIAL IV SCH (21:42)
[2018-02-14] VITALS: BP 107/57
[2018-02-14] MEDS: LACTULOSE SYRUP 20 GM/30 ML UDC NG SCH ×4 (00:20→17:59)
[2018-02-14 04:00] VITALS: BP 103/52
[2018-02-14] MEDS: INSULIN LISPRO 100 UNIT/1 ML 3ML VIAL SQ SCH ×5 (07:30→16:33)
[2018-02-14 08:00] VITALS: BP 119/56
[2018-02-14] MEDS: RIFAXIMIN 550 MG TABLET NG SCH ×2 (09:00→17:00)
[2018-02-14] MEDS: GLIMEPIRIDE 2 MG TAB PO SCH (09:00)
[2018-02-14] MEDS: IPRATROPIUM/ALBUTEROL SULFATE 4 GM INH INH SCH ×2 (09:00→13:00)
[2018-02-14] MEDS: SERTRALINE HCL 50 MG TAB PO SCH (09:00)
[2018-02-14] MEDS ORDERED: SPIRONOLACTONE 25 MG TAB PO SCH (09:00)
[2018-02-14] MEDS: MAGNESIUM OXIDE 400 MG TAB PO SCH (09:00)
[2018-02-14] MEDS: FUROSEMIDE INJ 10 MG/ML 4 ML VIAL IV SCH (09:00)
[2018-02-14] MEDS ORDERED: BUPIVACAINE 0.25%/EPI 30ML SDV INJ ONE (09:15)
[2018-02-14] MEDS: HYDROCODONE/APAP 7.5MG-325MG 1 EA TAB PO PRN ×2 (09:26→16:47)
--- NOTE | 2018-02-14 10:31 | Discharge Summary ---
This 57-year-old female patient with history of advanced liver disease and decompensation was admitted with encephalopathy with ammonia level more than 400 and acute kidney injury. The patient was treated with lactulose. She felt better. She was also weak, and gait was unsteady. Physical therapy helped her to ambulate, and she is going home today. DISCHARGE MEDICATIONS: Reconciled. DISCHARGE DIAGNOSES 1. Hepatic encephalopathy. 2. Advanced liver disease. 3. Diabetes mellitus. 4. Acute kidney injury. GAL HERNANDEZ MD Job#: [id number]
[2018-02-14 12:00] VITALS: BP 119/56
--- NOTE | 2018-02-14 14:24 | Diagnostic Imaging Report ---
Exam: Bilateral feet, 3 views each History: Foot and ankle pain Comparison: None. Findings: Right foot: No acute, displaced fracture or dislocation. Appropriate alignment between the medial cuneiform and second metatarsal base in keeping with an intact Lisfranc ligament. Joint spaces of the forefoot are well-maintained. There are degenerative changes of the talonavicular articulation with large osteophytes and subchondral sclerosis. Minimal degenerative plantar and posterior calcaneal spur. Subchondral cystic change of the distal tibia partially visualized. Left foot: No acute, displaced fracture or dislocation. Appropriate alignment between the medial cuneiform and second metatarsal base in keeping with an intact Lisfranc ligament. Joint space narrowing of the talonavicular joint with subchondral sclerosis. Subchondral cystic change of the distal tibia with associated sclerotic change of the talar dome. Impression: No acute osseous abnormalities. 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 Signed by: Dr. Bonilla Sierra M.D. on 02/14/2018 2:20 PM
[2018-02-14 15:56] VITALS: BP 102/49
== END 2018-02-14 18:53 | disposition home or self-care (01) | DRG 442 ==
LOC: ER 08:01 → ERHOLD 10:42 → ER 13:26 → IMCU 14:07 → MED/SURG 02-12 22:24
PROVIDERS: ADMIT Internal Medicine; ATTEND Internal Medicine
DX: K72.90 Hepatic failure, unspecified without coma (principal); Z68.43 Body mass index [BMI] 50.0-59.9, adult; D61.818 Other pancytopenia; N17.9 Acute kidney failure, unspecified; E11.9 Type 2 diabetes mellitus without complications; K75.81 Nonalcoholic steatohepatitis (NASH); E66.01 Morbid (severe) obesity due to excess calories; Z79.4 Long term (current) use of insulin; Z79.899 Other long term (current) drug therapy; I12.9 Hypertensive chronic kidney disease with stage 1 through stage 4 chronic kidney disease, or unspecified chronic kidney disease; E11.22 Type 2 diabetes mellitus with diabetic chronic kidney disease; N18.9 Chronic kidney disease, unspecified; Z79.891 Long term (current) use of opiate analgesic; E78.5 Hyperlipidemia, unspecified; D69.59 Other secondary thrombocytopenia
CPT/HCPCS: 36415; 51700; 71045; 80048; 80053; 81001; 82140; 82150; 82948; 83690; 84443; 85025; 85610; 85730; 93005; 94640; 96372; 97139; 99285; J1940; J7030

== ENCOUNTER 2018-05-25 13:15 | Emergency (ER) | payer MEDICARE, OTHER ==
[~2018-05-25] VITALS: Ht 170.2 cm; Wt 166.9 kg
[~2018-05-25 13:15] MED LIST changes: +NOVOLOG100 UNITS1 SQ; +ZOLOFT50 MG PO
--- OUTSIDE RECORDS SUMMARY | 2018-05-25 13:19 | XMS REPORT | Clinical Summary ---
Author Author [facility] Address Unknown Phone Unavailable Care Team Providers Care Grain Cleaner And Transfer Operator Name Role Phone Yarelis Paredes PCP Johnathon Guzman MD 3 Allergies Comments Active Allergy Reactions Severity Noted Date Elevated CK, myopathy Atorvastatin 02/09/2018 Medications End Date Status Medication Sig Dispensed Refills Start Date Active glimepiride (AMARYL) 2 MG 2 tablet 7 Active furosemide (LASIX) 40 MG Take 80 mg by 2 tablet mouth 2 (two) 7 times daily . Active propranolol (INDERAL) 20 2 MG tablet 7 Active sertraline (ZOLOFT) 100 Take 150 mg 0 201 MG tablet by mouth 7 daily . Active CONSTULOSE 10 gram/15 mL Take 60 mLs 2 solution by mouth 3 7 (three) times daily . Active HYDROcodone-acetaminophen Take 1 tablet 0 (NORCO 7.5-325) 7.5-325 by mouth mg per tablet every 8 (eight) hours as needed for Pain. Active spironolactone Take 50 mg by 0 (ALDACTONE) 50 MG tablet mouth 2 (two) times daily . Active albuterol-ipratropium Inhale 2 0 (COMBIVENT) 18-103 puffs by mcg/actuation inhaler mouth via inhaler every 6 (six) hours as needed for Wheezing. Active omeprazole (PRILOSEC) 40 Twice A Day 0 MG capsule Active magnesium oxide (MAG-OX) Take 400 mg 0 400 mg tablet by mouth daily. Active rifAXIMin 550 mg Tab Take 550 mg 0 by mouth 2 (two) times daily. Active vilazodone 40 mg tablet Take 40 mg by 0 mouth daily. Active magnesium oxide 400 mg Take 400 mg 0 magnesium Tab by mouth daily . Active zinc sulfate 220 mg Tab Take by mouth 0 daily . Active cholecalciferol, vitamin Take 5,000 0 D3, (VITAMIN D3) 5,000 Units by unit Tab mouth daily. Active calcium carbonate-vitamin Take by 0 D3 (CALCIUM 500 WITH D) mouth. 500 mg(1,250mg) -400 unit Tab 05/01/2018 Discontinued metOLazone (ZAROXOLYN) 10 2 MG tablet 7 05/01/2018 Discontinued NOVOLIN N 100 unit/mL 60 Units . 2 injection 7 05/01/2018 Discontinued furosemide (LASIX) 20 MG Take 60 mg by 0 tablet mouth 2 (two) times daily. 05/01/2018 Discontinued insulin aspart U-100 Inject 30 0 (NOVOLOG) 100 unit/mL Units InPn subcutaneousl y 3 (three) times daily with meals. 05/01/2018 Discontinued insulin degludec (TRESIBA Inject 60 0 FLEXTOUCH U-200 SUBQ) Units subcutaneousl y. 02/09/2018 Discontinued atorvastatin (LIPITOR) 40 Take 40 mg by 0 MG tablet mouth daily. 05/01/2018 Discontinued triamcinolone (KENALOG) Apply 0 0.5 % ointment topically 2 (two) times daily 1 application to affected area externally . 03/04/2018 Discontinued ciprofloxacin HCl (CIPRO) Take 1 tablet 14 tablet 0 500 MG tablet (500 mg 8 total) by mouth 2 (two) times daily for 7 days. 05/01/2018 Discontinued amoxicillin-clavulanate Take 1 tablet 20 tablet 0 (AUGMENTIN) 875-125 mg by mouth 2 8 per tablet (two) times daily for 10 days. 05/01/2018 Discontinued metroNIDAZOLE (FLAGYL) Take 1 tablet 30 tablet 0 500 MG tablet (500 mg 8 total) by mouth 3 (three) times daily for 10 days. 05/11/2018 amoxicillin-clavulanate Take 1 tablet 20 tablet 0 (AUGMENTIN) 875-125 mg by mouth 2 9 per tablet (two) times daily for 10 days. 05/11/2018 metroNIDAZOLE (FLAGYL) Take 1 tablet 30 tablet 0 500 MG tablet (500 mg 9 total) by mouth 3 (three) times daily for 10 days. Active Problems Problem Noted Date Osteoporosis 05/01/2018 Pre-transplant evaluation for chronic liver disease 03/12/2018 Last Assessment & Plan: She will be considered a high risk candidate for liver transplant secondary to her obesity and her tobacco consumption. Asthma 03/12/2018 Last Assessment & Plan: Asthma. She still currently smokes at least 1/2 a pack per day. She will need to have tobacco cessation and will need to follow up pulmonary for clearance prior to transplant. Knee problem 03/12/2018 Last Assessment & Plan: She has bilateral knee pain and cartilage issues. She will need to continue follow up with orthopedics and outpatient PT. She requires wheelchair for long distances. On a daily average she requires a cane or walker for ambulation. Adnexal mass 03/09/2018 Urinary tract infection without hematuria 03/04/2018 Steatohepatitis, non-alcoholic 08/13/2017 Abnormal iron saturation 11/07/2016 Morbid obesity due to excess calories 10/15/2016 Last Assessment & Plan: BMI is 52. She will meet with our human resources records clerk to create an appropriate diet plan and will exercise as tolerated. 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 Continue follow up with hepatology. Encounters Care Team Description Date Type Specialty Umer Reis MD Abnormal liver diagnostic imaging 05/21/2018 Hospital Radiology Encounter Shahid Graves MD 05/19/2018 Hospital Radiology Encounter 05/13/2018 Travel Shahid Graves MD Pre-operative cardiovascular examination; Liver transplant candidate; LVH (left ventricular hypertrophy) 05/12/2018 Hospital Cardiology Encounter Shahid Graves MD Pre-operative clearance 05/12/2018 Hospital Radiology Encounter Shahid Graves MD 05/07/2018 Outside Orders Central Scheduling Gabrielle Yabrra RN Lesion of mandible (Primary Dx) 05/05/2018 Orders Only Transplant Hepatology Umer Reis MD Hall, Sophia Marie, NP Other cirrhosis of liver (HCC) (Primary Dx); Steatohepatitis, non-alcoholic; Morbid obesity due to excess calories ; Abnormal liver enzymes; Metabolic syndrome; Adnexal mass; Immunity status testing; Screening for malignant neoplasm; Abnormal liver diagnostic imaging; Hyperlipidemia, unspecified hyperlipidemia type; Osteoporosis, unspecified osteoporosis type, unspecified pathological fracture presence 05/01/2018 Office Visit Hepatology Maria T De La Torre, RN Results 05/01/2018 Telephone Hepatology Shahid Graves MD Pre-operative clearance (Primary Dx) 05/01/2018 Orders Only Cardiology Shahid Graves MD Pre-operative cardiovascular examination (Primary Dx); Liver transplant candidate; LVH (left ventricular hypertrophy) 05/01/2018 Orders Only Cardiology Loida Tena 04/02/2018 Abstract Transplant Hepatology Law, Jacque R 03/19/2018 Abstract Transplant Hepatology Maldonado Rodgers MD Provider, [facility] Registry Generic 03/13/2018 [facility] Charge Transplant Hepatology Visit Li Killian RN 03/13/2018 Documentation Transplant Hepatology Anthony Powell [facility] 03/13/2018 Documentation Transplant Hepatology Umer Reis MD Pre-transplant evaluation for liver transplant; NAFLD (nonalcoholic fatty liver disease) 03/12/2018 Hospital Encounter Umer Reis MD Pre-transplant evaluation for liver transplant; NAFLD (nonalcoholic fatty liver disease) 03/12/2018 Hospital Encounter Umer Reis MD Pre-transplant evaluation for liver transplant; NAFLD (nonalcoholic fatty liver disease) 03/12/2018 Hospital Encounter Umer Reis MD Rana, Abbas Aba Bucker, MD Morbid obesity due to excess calories ; Pre-transplant evaluation for chronic liver disease; Knee problem 03/12/2018 Follow-Up Transplant Hepatology Umer Reis MD Cook, Amy 03/12/2018 Evaluation Transplant Hepatology Umer Reis MD Springer, Laura L, LCSW 03/12/2018 Social Work Transplant Hepatology Umer Reis MD Pre-transplant evaluation for liver transplant; NAFLD (nonalcoholic fatty liver disease) 03/12/2018 Orders Only Transplant Hepatology Umer Reis MD 03/12/2018 Outside Orders Law, Jacque R 03/12/2018 Documentation Transplant Hepatology Lizzy Sun Pre-transplant evaluation for liver transplant; NAFLD (nonalcoholic fatty liver disease) 03/12/2018 Orders Only Transplant Hepatology Umer Reis MD Other cirrhosis of liver (HCC) (Primary Dx); Steatohepatitis, non-alcoholic; Morbid obesity due to excess calories ; Abnormal liver enzymes; Hyperlipidemia, unspecified hyperlipidemia type; Metabolic syndrome; Immunity status testing; Screening for malignant neoplasm; Urinary tract infection without hematuria, site unspecified; Elevated CK; Cellulitis of right lower extremity; Adnexal mass 03/04/2018 Office Visit Hepatology Gabrielle Ybarra RN Pre-transplant evaluation for liver transplant (Primary Dx); NAFLD (nonalcoholic fatty liver disease) 02/20/2018 Orders Only Transplant Hepatology Loida Tena Liver Transplant Pre-evaluation (Spoke with pt, liver txp eval scheduled. Itinerary mailed to pt.) 02/20/2018 Telephone Transplant Hepatology Loida Tena Liver Transplant Pre-evaluation (Spoke with Romana pt mother, pt is currently inpatient at [facility] due to Elevated pneumonia. Liver txp eval not scheduled at this time. ) 02/11/2018 Telephone Transplant Hepatology Maldonado Rodgers MD 02/07/2018 Abstract Transplant Hepatology Natali Goldbegr NP Results 02/06/2018 Telephone Hepatology Natali Goldberg NP 02/06/2018 Orders Only Hepatology Umer Reis MD Other cirrhosis of liver (HCC) (Primary Dx); Morbid obesity due to excess calories ; Screening for malignant neoplasm; Immunity status testing; Abnormal liver enzymes; Hyperlipidemia, unspecified hyperlipidemia type; Metabolic syndrome; Steatohepatitis, non-alcoholic; Elevated CK; Adnexal mass; Acute kidney injury (HCC) 02/05/2018 Office Visit Hepatology Carmen Cortez MA 01/31/2018 Abstract Transplant Maria T De La Torre RN Appointment 01/28/2018 Telephone Hepatology Maria T De La Torre RN 01/24/2018 Documentation Hepatology Valente Buck E 12/11/2017 Abstract Hepatology Nabil Garcia PA Increased creatine kinase level (Primary Dx) 11/20/2017 Orders Only Hepatology Jarret Salas MD Other cirrhosis of liver (HCC) 11/19/2017 Hospital Radiology Encounter Jarret Salas MD Other cirrhosis of liver (HCC) (Primary Dx) 11/19/2017 Outside Orders Radiology Nabil Garcia PA Other cirrhosis of liver (HCC) 11/14/2017 Orders Only Hepatology Nabil Garcia PA Results 11/14/2017 Telephone Hepatology Jarret Salas MD Other cirrhosis of liver (HCC) (Primary Dx) 11/12/2017 Office Visit Hepatology Maria T De La Torre RN 10/22/2017 Abstract HepatAna Asher RN 10/16/2017 Abstract Hepatology Ana Stanton RN 10/16/2017 Abstract Hepatology Maria T De La Torre RN 09/27/2017 Abstract Hepatology Maria T De La Torre RN 09/24/2017 Abstract Hepatology Maria T De La Torre RN 09/24/2017 Documentation Hepatology Jarret Salas MD Diller, Karen Cardwell, PA-C Other cirrhosis of liver (HCC) (Primary Dx); Morbid obesity due to excess calories ; Metabolic syndrome; Steatohepatitis, non-alcoholic; Fatty liver disease, nonalcoholic; Screening for malignant neoplasm; Lymph nodes enlarged 08/13/2017 Office Visit Hepatology Umer Reis MD 07/31/2017 Outside Orders Radiology Umer Reis MD Other cirrhosis of liver (HCC); Abnormal liver enzymes 06/19/2017 Hospital Radiology Encounter Rosario De Souza RN Appointment (ultrasound) 06/19/2017 Telephone Hepatology Umer Reis MD Other cirrhosis of liver (HCC) (Primary Dx) 06/19/2017 Orders Only Hepatology Umer Reis MD 06/07/2017 Outside Orders after 05/24/2017 Family History Medical History Relation Name Comments Cancer Maternal Aunt Cancer Maternal Grandmother Cancer Mother Relation Name Status Comments Maternal Aunt Maternal Grandmother Mother Social History Date Tobacco Use Types Packs/Day Years Used Current Every Day Smoker Smokeless Tobacco: Never Used Tobacco Cessation: Ready to Quit: No; Counseling Given: Yes Alcohol Use Drinks/Week oz/Week Comments No Sex Assigned at Date Recorded Not on file Industry Job Start Date Occupation Not on file Not on file Not on file Travel End Travel History Travel Start No recent travel history available. Last Filed Vital Signs Time Taken Vital Sign Reading 05/19/2018 2:51 PM FAMILY LIFE EDUCATOR Blood Pressure 104/56 05/19/2018 2:51 PM FAMILY LIFE EDUCATOR Pulse 80 05/01/2018 10:39 AM FAMILY LIFE EDUCATOR Temperature 36.3 C (97.4 F) 05/19/2018 2:51 PM FAMILY LIFE EDUCATOR Respiratory Rate 14 05/19/2018 2:51 PM FAMILY LIFE EDUCATOR Oxygen Saturation 99% 03/12/2018 7:20 AM FAMILY LIFE EDUCATOR Inhaled Oxygen 21% Concentration 05/01/2018 10:39 AM FAMILY LIFE EDUCATOR Weight 149.5 kg (329 lb 9.6 oz) 05/01/2018 10:39 AM FAMILY LIFE EDUCATOR Height 171.5 cm (5' 7.52") 05/01/2018 10:39 AM FAMILY LIFE EDUCATOR Body Mass Index 50.83 Plan of Treatment Care Team Description Date Type Specialty Resource, [facility] 07/28/2018 Office Visit Hepatology Health Maintenance Due Date Last Done Comments INFLUENZA VACCINE 01/27/2018 Procedures Comments Procedure Name Priority Date/Time Associated Diagnosis CT ABDOMEN WITH/WITHOUT Routine 05/21/2018 Abnormal liver diagnostic CONTRAST 10:36 AM FAMILY LIFE EDUCATOR imaging POCT-CREATININE Routine 05/21/2018 10:14 AM FAMILY LIFE EDUCATOR TREADMILL Routine 05/19/2018 TOLERANCE(NON-NUCLEAR 2:44 PM FAMILY LIFE EDUCATOR TREADMILL) NM CARDIAC PET PERFUSION Routine 05/19/2018 Pre-operative clearance REST AND/OR STRESS 2:44 PM FAMILY LIFE EDUCATOR ECHOCARDIOGRAM REPORT - 05/12/2018 SCAN 1:50 PM FAMILY LIFE EDUCATOR 2D ECHO W/ DOPPLER Routine 05/12/2018 Pre-operative (CW/PW/COLOR) 11:41 AM FAMILY LIFE EDUCATOR cardiovascular examination Liver transplant candidate LVH (left ventricular hypertrophy) ALPHA FETOPROTEIN (AFP), Routine 05/01/2018 Screening for malignant TUMOR MARKER 12:36 PM FAMILY LIFE EDUCATOR neoplasm PROTHROMBIN TIME/INR Routine 05/01/2018 Other cirrhosis of liver 12:36 PM FAMILY LIFE EDUCATOR (HCC) HEPATIC FUNCTION PANEL Routine 05/01/2018 Other cirrhosis of liver 12:36 PM FAMILY LIFE EDUCATOR (HCC) BASIC METABOLIC PANEL (7) Routine 05/01/2018 Other cirrhosis of liver 12:36 PM FAMILY LIFE EDUCATOR (HCC) CBC W/PLT COUNT & AUTO Routine 05/01/2018 Other cirrhosis of liver DIFFERENTIAL 12:35 PM FAMILY LIFE EDUCATOR (HCC) CBC W/PLT COUNT & AUTO Routine 05/01/2018 Other cirrhosis of liver DIFFERENTIAL 12:35 PM FAMILY LIFE EDUCATOR (HCC) TRANSFUSION SERVICE 03/13/2018 REPORT - SCAN 5:53 PM FAMILY LIFE EDUCATOR XR MANDIBLE MIN 4 VIEWS Routine 03/12/2018 Pre-transplant evaluation 11:01 AM FAMILY LIFE EDUCATOR for liver transplant NAFLD (nonalcoholic fatty liver disease) XR CHEST 2 VIEWS Routine 03/12/2018 Pre-transplant evaluation 11:00 AM FAMILY LIFE EDUCATOR for liver transplant NAFLD (nonalcoholic fatty liver disease) XR DXA BONE DENSITY STUDY Routine 03/12/2018 Pre-transplant evaluation 10:59 AM FAMILY LIFE EDUCATOR for liver transplant NAFLD (nonalcoholic fatty liver disease) PHOSPHORUS Routine 03/12/2018 Pre-transplant evaluation 9:53 AM FAMILY LIFE EDUCATOR for liver transplant NAFLD (nonalcoholic fatty liver disease) MAGNESIUM Routine 03/12/2018 Pre-transplant evaluation 9:53 AM FAMILY LIFE EDUCATOR for liver transplant NAFLD (nonalcoholic fatty liver disease) GAMMA GLUTAMYL Routine 03/12/2018 Pre-transplant evaluation TRANSFERASE (GGT) 9:53 AM FAMILY LIFE EDUCATOR for liver transplant NAFLD (nonalcoholic fatty liver disease) BILIRUBIN, DIRECT Routine 03/12/2018 Pre-transplant evaluation 9:53 AM FAMILY LIFE EDUCATOR for liver transplant NAFLD (nonalcoholic fatty liver disease) COMPREHENSIVE METABOLIC Routine 03/12/2018 Pre-transplant evaluation PANEL 9:53 AM FAMILY LIFE EDUCATOR for liver transplant NAFLD (nonalcoholic fatty liver disease) VITAMIN D, 25-HYDROXY Routine 03/12/2018 Pre-transplant evaluation 9:41 AM FAMILY LIFE EDUCATOR for liver transplant NAFLD (nonalcoholic fatty liver disease) FERRITIN Routine 03/12/2018 Pre-transplant evaluation 9:41 AM FAMILY LIFE EDUCATOR for liver transplant NAFLD (nonalcoholic fatty liver disease) IRON, TIBC, % SAT. Routine 03/12/2018 Pre-transplant evaluation (WITHOUT FERRITIN) 9:41 AM FAMILY LIFE EDUCATOR for liver transplant NAFLD (nonalcoholic fatty liver disease) TRANSFERRIN Routine 03/12/2018 Pre-transplant evaluation 9:41 AM FAMILY LIFE EDUCATOR for liver transplant NAFLD (nonalcoholic fatty liver disease) CALCIUM, IONIZED Routine 03/12/2018 Pre-transplant evaluation 9:04 AM FAMILY LIFE EDUCATOR for liver transplant NAFLD (nonalcoholic fatty liver disease) DRUG SCREEN, URINE, Routine 03/12/2018 Pre-transplant evaluation TRANSPLANT 8:51 AM FAMILY LIFE EDUCATOR for liver transplant NAFLD (nonalcoholic fatty liver disease) APTT Routine 03/12/2018 Pre-transplant evaluation 8:47 AM FAMILY LIFE EDUCATOR for liver transplant NAFLD (nonalcoholic fatty liver disease) PROTHROMBIN TIME/INR Routine 03/12/2018 Pre-transplant evaluation 8:47 AM FAMILY LIFE EDUCATOR for liver transplant NAFLD (nonalcoholic fatty liver disease) FIBRINOGEN Routine 03/12/2018 Pre-transplant evaluation 8:47 AM FAMILY LIFE EDUCATOR for liver transplant NAFLD (nonalcoholic fatty liver disease) TYPE AND SCREEN, Routine 03/12/2018 Pre-transplant evaluation AUTOMATED 7:40 AM FAMILY LIFE EDUCATOR for liver transplant NAFLD (nonalcoholic fatty liver disease) SCREEN, URINE Routine 03/12/2018 Pre-transplant evaluation 7:40 AM FAMILY LIFE EDUCATOR for liver transplant NAFLD (nonalcoholic fatty liver disease) URINALYSIS W/ MICROSCOPIC Routine 03/12/2018 Pre-transplant evaluation 7:40 AM FAMILY LIFE EDUCATOR for liver transplant NAFLD (nonalcoholic fatty liver disease) T SPOT TB Routine 03/12/2018 Pre-transplant evaluation 7:40 AM FAMILY LIFE EDUCATOR for liver transplant NAFLD (nonalcoholic fatty liver disease) RPR Routine 03/12/2018 Pre-transplant evaluation 7:40 AM FAMILY LIFE EDUCATOR for liver transplant NAFLD (nonalcoholic fatty liver disease) EBV ANTIBODY, IGM Routine 03/12/2018 Pre-transplant evaluation 7:40 AM FAMILY LIFE EDUCATOR for liver transplant NAFLD (nonalcoholic fatty liver disease) EBV ANTIBODY, IGG Routine 03/12/2018 Pre-transplant evaluation 7:40 AM FAMILY LIFE EDUCATOR for liver transplant NAFLD (nonalcoholic fatty liver disease) CYTOMEGALOVIRUS ANTIBODY, Routine 03/12/2018 Pre-transplant evaluation IGM 7:40 AM FAMILY LIFE EDUCATOR for liver transplant NAFLD (nonalcoholic fatty liver disease) CYTOMEGALOVIRUS ANTIBODY, Routine 03/12/2018 Pre-transplant evaluation IGG 7:40 AM FAMILY LIFE EDUCATOR for liver transplant NAFLD (nonalcoholic fatty liver disease) HIV-1 ANTIGEN WITH Routine 03/12/2018 Pre-transplant evaluation HIV-1/2 ANTIBODY 7:40 AM FAMILY LIFE EDUCATOR for liver transplant NAFLD (nonalcoholic fatty liver disease) HEPATITIS B CORE Routine 03/12/2018 Pre-transplant evaluation ANTIBODY, IGM 7:40 AM FAMILY LIFE EDUCATOR for liver transplant NAFLD (nonalcoholic fatty liver disease) HEPATITIS B SURFACE Routine 03/12/2018 Pre-transplant evaluation ANTIGEN 7:40 AM FAMILY LIFE EDUCATOR for liver transplant NAFLD (nonalcoholic fatty liver disease) HEPATITIS A ANTIBODY, IGM Routine 03/12/2018 Pre-transplant evaluation 7:40 AM FAMILY LIFE EDUCATOR for liver transplant NAFLD (nonalcoholic fatty liver disease) T4 Routine 03/12/2018 Pre-transplant evaluation 7:40 AM FAMILY LIFE EDUCATOR for liver transplant NAFLD (nonalcoholic fatty liver disease) T3 AP Routine 03/12/2018 Pre-transplant evaluation 7:40 AM FAMILY LIFE EDUCATOR for liver transplant NAFLD (nonalcoholic fatty liver disease) TSH Routine 03/12/2018 Pre-transplant evaluation 7:40 AM FAMILY LIFE EDUCATOR for liver transplant NAFLD (nonalcoholic fatty liver disease) URIC ACID Routine 03/12/2018 Pre-transplant evaluation 7:40 AM FAMILY LIFE EDUCATOR for liver transplant NAFLD (nonalcoholic fatty liver disease) ZINC Routine 03/12/2018 Pre-transplant evaluation 7:40 AM FAMILY LIFE EDUCATOR for liver transplant NAFLD (nonalcoholic fatty liver disease) CARCINOEMBRYONIC ANTIGEN Routine 03/12/2018 Pre-transplant evaluation (CEA) 7:40 AM FAMILY LIFE EDUCATOR for liver transplant NAFLD (nonalcoholic fatty liver disease) CARBOHYDRATE ANTIGEN 19-9 Routine 03/12/2018 Pre-transplant evaluation (CA 19-9) 7:40 AM FAMILY LIFE EDUCATOR for liver transplant NAFLD (nonalcoholic fatty liver disease) ETHANOL Routine 03/12/2018 Pre-transplant evaluation 7:40 AM FAMILY LIFE EDUCATOR for liver transplant NAFLD (nonalcoholic fatty liver disease) HEMOGLOBIN A1C Routine 03/12/2018 Pre-transplant evaluation 7:40 AM FAMILY LIFE EDUCATOR for liver transplant NAFLD (nonalcoholic fatty liver disease) LIPID PANEL Routine 03/12/2018 Pre-transplant evaluation 7:40 AM FAMILY LIFE EDUCATOR for liver transplant NAFLD (nonalcoholic fatty liver disease) CBC W/PLT COUNT & AUTO Routine 03/12/2018 Pre-transplant evaluation DIFFERENTIAL 7:37 AM FAMILY LIFE EDUCATOR for liver transplant NAFLD (nonalcoholic fatty liver disease) CBC W/PLT COUNT & AUTO Routine 03/12/2018 Pre-transplant evaluation DIFFERENTIAL 7:37 AM FAMILY LIFE EDUCATOR for liver transplant NAFLD (nonalcoholic fatty liver disease) BLOOD GAS, ARTERIAL Routine 03/12/2018 Pre-transplant evaluation 7:26 AM FAMILY LIFE EDUCATOR for liver transplant NAFLD (nonalcoholic fatty liver disease) BLOOD CULTURE Routine 03/04/2018 Urinary tract infection 4:30 PM FAMILY LIFE EDUCATOR without hematuria, site unspecified CBC W/PLT COUNT & AUTO Routine 03/04/2018 Other cirrhosis of liver DIFFERENTIAL 4:23 PM FAMILY LIFE EDUCATOR (HCC) CREATINE KINASE (CK) Routine 03/04/2018 Elevated CK 4:23 PM FAMILY LIFE EDUCATOR PROTHROMBIN TIME/INR Routine 03/04/2018 Other cirrhosis of liver 4:23 PM FAMILY LIFE EDUCATOR (HCC) CBC W/PLT COUNT & AUTO Routine 03/04/2018 Other cirrhosis of liver DIFFERENTIAL 4:23 PM FAMILY LIFE EDUCATOR (HCC) HEPATIC FUNCTION PANEL Routine 03/04/2018 Other cirrhosis of liver 4:23 PM FAMILY LIFE EDUCATOR (HCC) BASIC METABOLIC PANEL (7) Routine 03/04/2018 Other cirrhosis of liver 4:23 PM FAMILY LIFE EDUCATOR (HCC) BLOOD CULTURE Routine 03/04/2018 Urinary tract infection 4:23 PM FAMILY LIFE EDUCATOR without hematuria, site unspecified CBC W/PLT COUNT & AUTO Routine 02/05/2018 Other cirrhosis of liver DIFFERENTIAL 1:31 PM CDT (HCC) CREATINE KINASE (CK) Routine 02/05/2018 Elevated CK 1:31 PM CDT PROTHROMBIN TIME/INR Routine 02/05/2018 Other cirrhosis of liver 1:31 PM CDT (HCC) CBC W/PLT COUNT & AUTO Routine 02/05/2018 Other cirrhosis of liver DIFFERENTIAL 1:31 PM CDT (HCC) HEPATIC FUNCTION PANEL Routine 02/05/2018 Other cirrhosis of liver 1:31 PM CDT (HCC) BASIC METABOLIC PANEL (7) Routine 02/05/2018 Other cirrhosis of liver 1:31 PM CDT (HCC) MR ABDOMEN WITH/WITHOUT Routine 11/19/2017 Other cirrhosis of liver IV CONTRAST 12:40 PM CDT (HCC) COMPREHENSIVE METABOLIC Routine 11/18/2017 Other cirrhosis of liver PANEL 2:10 PM CDT (HCC) CBC W/PLT COUNT & AUTO Routine 11/18/2017 Other cirrhosis of liver DIFFERENTIAL 2:10 PM CDT (HCC) CBC W/PLT COUNT & AUTO Routine 11/12/2017 Other cirrhosis of liver DIFFERENTIAL 2:50 PM CDT (HCC) ALPHA FETOPROTEIN (AFP), Routine 11/12/2017 Other cirrhosis of liver TUMOR MARKER 2:50 PM CDT (HCC) PROTHROMBIN TIME/INR Routine 11/12/2017 Other cirrhosis of liver 2:50 PM CDT (HCC) CBC W/PLT COUNT & AUTO Routine 11/12/2017 Other cirrhosis of liver DIFFERENTIAL 2:50 PM CDT (HCC) HEPATIC FUNCTION PANEL Routine 11/12/2017 Other cirrhosis of liver 2:50 PM CDT (HCC) BASIC METABOLIC PANEL (7) Routine 11/12/2017 Other cirrhosis of liver 2:50 PM CDT (HCC) CBC W/PLT COUNT & AUTO Routine 08/13/2017 Morbid obesity due to DIFFERENTIAL 12:46 PM CDT excess calories Other cirrhosis of liver (HCC) Metabolic syndrome Steatohepatitis, non-alcoholic Fatty liver disease, nonalcoholic Screening for malignant neoplasm Lymph nodes enlarged PROTHROMBIN TIME/INR Routine 08/13/2017 Morbid obesity due to 12:46 PM CDT excess calories Other cirrhosis of liver (HCC) Metabolic syndrome Steatohepatitis, non-alcoholic Fatty liver disease, nonalcoholic Screening for malignant neoplasm Lymph nodes enlarged CBC W/PLT COUNT & AUTO Routine 08/13/2017 Morbid obesity due to DIFFERENTIAL 12:46 PM CDT excess calories Other cirrhosis of liver (HCC) Metabolic syndrome Steatohepatitis, non-alcoholic Fatty liver disease, nonalcoholic Screening for malignant neoplasm Lymph nodes enlarged HEPATIC FUNCTION PANEL Routine 08/13/2017 Morbid obesity due to 12:46 PM CDT excess calories Other cirrhosis of liver (HCC) Metabolic syndrome Steatohepatitis, non-alcoholic Fatty liver disease, nonalcoholic Screening for malignant neoplasm Lymph nodes enlarged BASIC METABOLIC PANEL (7) Routine 08/13/2017 Morbid obesity due to 12:46 PM CDT excess calories Other cirrhosis of liver (HCC) Metabolic syndrome Steatohepatitis, non-alcoholic Fatty liver disease, nonalcoholic Screening for malignant neoplasm Lymph nodes enlarged POCT-CREATININE Routine 06/19/2017 12:25 PM FAMILY LIFE EDUCATOR after 05/24/2017 Results * CT abdomen with/without contrast (05/21/2018 10:36 AM FAMILY LIFE EDUCATOR) Narrative Performed At FINAL REPORT [facility] ABDOMINAL CT DATED 05/21/2018 COMPARISON: October 24, 2016 CLINICAL INFORMATION:liver protocol, cirrhosis, abnormal liver diagnostic imaging TECHNIQUE:Axial images of the abdomen were obtained from diaphragm to the upper pelvis [with/without] contrast. This exam was performed according to our departmental dose-optimization program, which includes automated exposure control, adjustment of the mA and/or kV according to patient size and/or use of interactive reconstruction technique. COMMENT: Liver is cirrhotic in appearance with irregular margins. No abnormal enhancement or suspicious mass is seen in the liver. Spleen is enlarged measuring approximately 12.9 x 7.5 x 13.5 cm. The splenic, superior mesenteric, portal, and hepatic veins are patent. Main portal vein is small in caliber. Multiple collateral veins are seen in the splenic hilum and left lateroconal fascia. There is a splenorenal shunt. Gallbladder is surgically absent. No biliary dilatation is noted. Pancreas and adrenals are unremarkable. Both kidneys are normal in size and functioning with prompt bilateral excretion. A 2.8 x 3.3 cm cyst is seen in the inferior pole left kidney. No hydronephrosis, hydroureter, urolithiasis is present. The small and large bowel are unremarkable. Appendix is not completely visualized. The visualized portion of the appendix is normal in caliber. No mass, adenopathy or ascites is present. IMPRESSION: 1. Cirrhosis with splenomegaly and portal hypertension with splenorenal shunt. 2. No suspicious hepatic mass. 3. Left renal cyst. Signed: Mami Camejo MD Report Verified Date/Time:05/21/2018 14:37:35 Reading Location: [address] Body Reading Room Procedure Note Interface, External Ris In - 05/21/2018 2:39 PM FAMILY LIFE EDUCATOR FINAL REPORT ABDOMINAL CT DATED 05/21/2018 COMPARISON: October 24, 2016 CLINICAL INFORMATION: liver protocol, cirrhosis, abnormal liver diagnostic imaging TECHNIQUE: Axial images of the abdomen were obtained from diaphragm to the upper pelvis [with/without] contrast. This exam was performed according to our departmental dose-optimization program, which includes automated exposure control, adjustment of the mA and/or kV according to patient size and/or use of interactive reconstruction technique. COMMENT: Liver is cirrhotic in appearance with irregular margins. No abnormal enhancement or suspicious mass is seen in the liver. Spleen is enlarged measuring approximately 12.9 x 7.5 x 13.5 cm. The splenic, superior mesenteric, portal, and hepatic veins are patent. Main portal vein is small in caliber. Multiple collateral veins are seen in the splenic hilum and left lateroconal fascia. There is a splenorenal shunt. Gallbladder is surgically absent. No biliary dilatation is noted. Pancreas and adrenals are unremarkable. Both kidneys are normal in size and functioning with prompt bilateral excretion. A 2.8 x 3.3 cm cyst is seen in the inferior pole left kidney. No hydronephrosis, hydroureter, urolithiasis is present. The small and large bowel are unremarkable. Appendix is not completely visualized. The visualized portion of the appendix is normal in caliber. No mass, adenopathy or ascites is present. IMPRESSION: 1. Cirrhosis with splenomegaly and portal hypertension with splenorenal shunt. 2. No suspicious hepatic mass. 3. Left renal cyst. Signed: Mami Camejo MD Report Verified Date/Time: 05/21/2018 14:37:35 Reading Location: [facility] [id number] CT Body Reading Room Performing Organization Address City/State/Zipcode Phone Number [facility] * POC-Creatinine (05/21/2018 10:14 AM FAMILY LIFE EDUCATOR) Only the most recent of 2 results within the time period is included. POC-Creatinine 1.4 (H)Comment: TESTED AT 0.6 - 1.3 mg/dL [facility] [address] [facility] [id number] POC-EGFR 39 mL/min/1.73M2 [facility] Specimen Blood Narrative Performed At Performing Organization Address City/State/Zipcode Phone Number [facility] [address] [place] [address] [facility] * Treadmill tolerance(Non-Nuclear Treadmill) (05/19/2018 2:44 PM FAMILY LIFE EDUCATOR) Narrative Performed At Protocol Name [facility] Time In Exercise Phase 00:01:00 Max. Systolic BP 109 mmHg Max Diastolic BP 59 mmHg Max Heart Rate 81 BPM Max Predicted Heart Rate 165 BPM Reason For Termination Predetermined end point Reason for Test Pre Op Cardiac Clearance Target HR Formula (220 - Age)*100% Arrhythmias ventricular premature beats Resting ECG Normal sinus rhythm 1st Degree AV block:IVCD ST Changes No Significant Changes Overall Impression Indeterminate due to pharmacological stress Chest Pain none HR Response To Exercise BP Response To Exercise Aldactone,Lasix Confirmed by fellow Desmond Vargas ([id number]) on 05/19/2018 3:24:59 PM Confirmed by MD UBALDO, IHAB ([id number]) on 05/23/2018 5:14:38 AM Procedure Note Interface, External Ris In - 05/23/2018 5:14 AM FAMILY LIFE EDUCATOR Protocol Name Regadenoson Time In Exercise Phase 00:01:00 Max. Systolic BP 109 mmHg Max Diastolic BP 59 mmHg Max Heart Rate 81 BPM Max Predicted Heart Rate 165 BPM Reason For Termination Predetermined end point Reason for Test Pre Op Cardiac Clearance Target HR Formula (220 - Age)*100% Arrhythmias ventricular premature beats Resting ECG Normal sinus rhythm 1st Degree AV block:IVCD ST Changes No Significant Changes Overall Impression Indeterminate due to pharmacological stress Chest Pain none HR Response To Exercise BP Response To Exercise Aldactone,Lasix Confirmed by fellow Desmond Vargas ([id number]) on 05/19/2018 3:24:59 PM Confirmed by MD UBALDO, IHAB ([id number]) on 05/23/2018 5:14:38 AM Performing Organization Address City/State/Zipcode Phone Number [facility] * NM myocardial perfusion PET (rest and stress) (05/19/2018 2:44 PM FAMILY LIFE EDUCATOR) Narrative Performed At FINAL REPORT [facility] PROCEDURE: Rest/Stress MYOCARDIAL PERFUSION PET with regadenoson\\XA9\\ CPT CODE: 86510 INDICATION: Obesity, BMI=51, Preoperative evaluation for bariatric surgery HISTORY: Cardiac risk factors: Diabetes, obesity, hyperlipidemia, tobacco use. Recent cardiac symptoms: Syncope. Current cardiovascular-related medications: Aldactone, Lasix. , PROTOCOL: Limited low-dose CT imaging was performed for attenuation correction. 40.2 mCi of Rb-82 chloride was injected iv at rest, and gated PET (positron emission tomography) images were obtained. Subsequently, 40.0 mCi of Rb-82 chloride was injected iv at expected peak pharmacologic effect, and gated PET images were obtained. PRELIMINARY STRESS TEST DATA FROM NONINVASIVE CARDIOLOGY: Pharmacologic stress was by 10-second iv infusion of 0.4 mg of regadenoson. Radiotracer was injected 30 seconds after start of stress. Heart rate was 80 beats/min at rest and 81 beats/min (49% of MPHR) at tracer injection. BP was 112/57 mmHg at rest and 109/59 mmHg at tracer injection. Stress was stopped for predetermined endpoint. The patient experienced palpitations; treatment was not required. Preliminary ECG evaluation revealed sinus rhythm at rest and no ischemic changes with stress. (Final ECG interpretation and other stress and monitoring data are reported separately by Cardiology.) IMAGING FINDINGS: Study quality is good. Images obtained after rest and stress injections show normal LV activity. LV and RV volumes appear normal. Gated images obtained at rest and with stress show normal LV wall motion and thickening. LVEF at rest is 59%. LVEF at stress is 55%. IMPRESSION: 1. Normal study.2. Appropriate pharmacologic stress.3. Normal myocardial perfusion.4. Normal resting LV function. No deterioration of function is noted with pharmacologic stress.5. Normal extracardiac tracer distribution.6. No previous [facility] study for comparison. Signed: Kyra Dave MD Report Verified Date/Time:05/19/2018 16:05:56 Reading Location: [address] Reading Room Procedure Note Interface, External Ris In - 05/19/2018 4:08 PM FAMILY LIFE EDUCATOR FINAL REPORT PROCEDURE: Rest/Stress MYOCARDIAL PERFUSION PET with regadenoson\\XA9\\ CPT CODE: 36272 INDICATION: Obesity, BMI=51, Preoperative evaluation for bariatric surgery HISTORY: Cardiac risk factors: Diabetes, obesity, hyperlipidemia, tobacco use. Recent cardiac symptoms: Syncope. Current cardiovascular-related medications: Aldactone, Lasix. , PROTOCOL: Limited low-dose CT imaging was performed for attenuation correction. 40.2 mCi of Rb-82 chloride was injected iv at rest, and gated PET (positron emission tomography) images were obtained. Subsequently, 40.0 mCi of Rb-82 chloride was injected iv at expected peak pharmacologic effect, and gated PET images were obtained. PRELIMINARY STRESS TEST DATA FROM NONINVASIVE CARDIOLOGY: Pharmacologic stress was by 10-second iv infusion of 0.4 mg of regadenoson. Radiotracer was injected 30 seconds after start of stress. Heart rate was 80 beats/min at rest and 81 beats/min (49% of MPHR) at tracer injection. BP was 112/57 mmHg at rest and 109/59 mmHg at tracer injection. Stress was stopped for predetermined endpoint. The patient experienced palpitations; treatment was not required. Preliminary ECG evaluation revealed sinus rhythm at rest and no ischemic changes with stress. (Final ECG interpretation and other stress and monitoring data are reported separately by Cardiology.) IMAGING FINDINGS: Study quality is good. Images obtained after rest and stress injections show normal LV activity. LV and RV volumes appear normal. Gated images obtained at rest and with stress show normal LV wall motion and thickening. LVEF at rest is 59%. LVEF at stress is 55%. IMPRESSION: 1. Normal study. 2. Appropriate pharmacologic stress. 3. Normal myocardial perfusion. 4. Normal resting LV function. No deterioration of function is noted with pharmacologic stress. 5. Normal extracardiac tracer distribution. 6. No previous [facility] study for comparison. Signed: Kyra Dave MD Report Verified Date/Time: 05/19/2018 16:05:56 Reading Location: [address] Reading Room Performing Organization Address City/State/Zipcode Phone Number [facility] * ECHOCARDIOGRAM REPORT - SCAN (05/12/2018 1:50 PM FAMILY LIFE EDUCATOR) Narrative Performed At * 2D Echo W/Doppler(CW/PW/Color) (05/12/2018 11:41 AM FAMILY LIFE EDUCATOR) Ejection Fraction [facility] ECHO HEARTLAB [facility] Narrative Performed At Transthoracic Echocardiography Report (TTE) [facility] ECHO HEARTLAB Demographics [facility] Patient NameCANPILY GARCIA Date of Study05/12/2018 [facility] Female Visit [id number] Unknown Room NumberOP Number Date of 1960Referring PhysicianSisidoro Key MD Age 57 year(s)SonographZack Christianson [facility] Head Esthetician Ector Daigle Interpreting Jose London Procedure Type of Study TTE procedure:2DECHO W DOPPLER(CW/PW/COLOR) (Routine) Indications:Preop cardiac evaluation. Clinical History Cirrhosis, obesity, asthma, DM Contrast Medium: Definity. Height: 67 inches Weight: 149.23 kg (329 lbs) BSA: 2.5 m^2 BMI: 51.53 kg/m^2 HR: 88 bpm BP: 134/75 mmHg Summary The left ventricle is chamber size (by vol index) is moderately enlarged (female - LVED vol -71-80ml/m2). Mild concentric LV hypertrophy. All of the LV segments contract normally . Estimated LVEF by qualitative assessment is normal (>60%) . LV diastolic function is indeterminate. Unable to estimate peak systolic PA pressure; inadequate TR velocity signal. No evidence of pericardial effusion. Signature Findings Left Ventricle LV endocardium is adequately visualized with IV ultrasound enhancing agent. The left ventricle is chamber size (by vol index) is moderately enlarged (female - LVED vol -71-80ml/m2). Mild concentric LV hypertrophy. All of the LV segments contract normally . Estimated LVEF by qualitative assessment is normal (>60%) . LV diastolic function is indeterminate. Left AtriumLA size is severely enlarged (>48 ml/m2) . Right VentricleNormal right ventricle structure and function. Right Atrium RA size is dilated. Aortic Valve Normal AoV structure. Mitral Valve Normal MV structure. Tricuspid ValveA trace of tricuspid regurgitation. Unable to estimate peak systolic PA pressure; inadequate TR velocity signal. Pulmonic Valve Normal PV structure and function by limited views and Doppler. AortaAortic root size (SInus of Valsalva diameter) is normal . PericardiumNo evidence of pericardial effusion. IVC/SVC/PA/PV/PleuralThe estimated RA pressure by IVC dynamics 5-10mmHg . Chambers/Structures Left Atrium LA Dimension: 5.03 cmLA Area: 35.81 cm^2 LA Volume: 139.83 ml LA Vol. Index: 56 ml/m^2 Left Ventricle LVIDd: 5.77 cm LV Septum Diastolic: 1.25 cm LV PW Diastolic: 1.11 cm LVEDV Graves's:193.1 ml LVESV Graves's:65.78 ml LVEF Graves's: 65.9 %LVEDVI: 77 ml/m^2 LVESVI: 26 ml/m^2 LVOT Diameter: 2.38 cm Aorta Ao Root S of Carmelita.: 3.47 cm Doppler/Quantitative Measurements LVOT Peak Velocity: 1.4 m/sPeak Gradient: 7.79 mmHg Mean Velocity: 0.83 m/s Mean Gradient: 3.42 mmHg LVOT Diameter: 2.38 cmLVOT VTI: 24.88 cm LVOT Area: 4.45 cm^2LVOT SV:110.63 ml LVOT CO: 9.74 l/min LVOT CI: 3.9 l/min/m^2 Procedure Note Interface, External Ris In - 05/12/2018 1:18 PM FAMILY LIFE EDUCATOR Transthoracic Echocardiography Report (TTE) Demographics Patient Name PILY GRIGSBY Date of Study 05/12/2018 [facility] Gender Female Visit Number [id number] Race Unknown Room Number OP Number Date of 1960 Referring Physician Satr Key MD Age 57 year(s) Dye Range Tender Kojo Christianson, [facility] Head Esthetician Ector Daigle Interpreting Physician PRABHA London Procedure Type of Study TTE procedure:2DECHO W DOPPLER(CW/PW/COLOR) (Routine) Indications:Preop cardiac evaluation. Clinical History Cirrhosis, obesity, asthma, DM Contrast Medium: Definity. Height: 67 inches Weight: 149.23 kg (329 lbs) BSA: 2.5 m^2 BMI: 51.53 kg/m^2 HR: 88 bpm BP: 134/75 mmHg Summary The left ventricle is chamber size (by vol index) is moderately enlarged (female - LVED vol -71-80ml/m2). Mild concentric LV hypertrophy. All of the LV segments contract normally . Estimated LVEF by qualitative assessment is normal (>60%) . LV diastolic function is indeterminate. Unable to estimate peak systolic PA pressure; inadequate TR velocity signal. No evidence of pericardial effusion. Signature Findings Left Ventricle LV endocardium is adequately visualized with IV ultrasound enhancing agent. The left ventricle is chamber size (by vol index) is moderately enlarged (female - LVED vol -71-80ml/m2). Mild concentric LV hypertrophy. All of the LV segments contract normally . Estimated LVEF by qualitative assessment is normal (>60%) . LV diastolic function is indeterminate. Left Atrium LA size is severely enlarged (>48 ml/m2) . Right Ventricle Normal right ventricle structure and function. Right Atrium RA size is dilated. Aortic Valve Normal AoV structure. Mitral Valve Normal MV structure. Tricuspid Valve A trace of tricuspid regurgitation. Unable to estimate peak systolic PA pressure; inadequate TR velocity signal. Pulmonic Valve Normal PV structure and function by limited views and Doppler. Aorta Aortic root size (SInus of Valsalva diameter) is normal . Pericardium No evidence of pericardial effusion. IVC/SVC/PA/PV/Pleural The estimated RA pressure by IVC dynamics 5-10mmHg . Chambers/Structures Left Atrium LA Dimension: 5.03 cm LA Area: 35.81 cm^2 LA Volume: 139.83 ml LA Vol. Index: 56 ml/m^2 Left Ventricle LVIDd: 5.77 cm LV Septum Diastolic: 1.25 cm LV PW Diastolic: 1.11 cm LVEDV Graves's:193.1 ml LVESV Graves's:65.78 ml LVEF Graves's: 65.9 % LVEDVI: 77 ml/m^2 LVESVI: 26 ml/m^2 LVOT Diameter: 2.38 cm Aorta Ao Root S of Carmelita.: 3.47 cm Doppler/Quantitative Measurements LVOT Peak Velocity: 1.4 m/s Peak Gradient: 7.79 mmHg Mean Velocity: 0.83 m/s Mean Gradient: 3.42 mmHg LVOT Diameter: 2.38 cm LVOT VTI: 24.88 cm LVOT Area: 4.45 cm^2 LVOT SV:110.63 ml LVOT CO: 9.74 l/min LVOT CI: 3.9 l/min/m^2 Performing Organization Address City/[facility] Phone Number [facility] MKCKESSHARLEY CP[facility]ARTINA * Alpha fetoprotein (AFP), tumor marker (05/01/2018 12:36 PM FAMILY LIFE EDUCATOR) Only the most recent of 2 results within the time period is included. Alpha-Fetoprotein 7.9 <10.0 ng/mL [facility] Specimen Blood Performing Organization Address [facility] [place] [address] [facility] * Pro-time/INR (05/01/2018 12:36 PM FAMILY LIFE EDUCATOR) Only the most recent of 6 results within the time period is included. Protime 16.2 (H) 11.7 - 14.7 seconds [facility] INR 1.3 <=5.9 [facility] Specimen Blood Narrative Performed At RECOMMENDED COUMADIN/WARFARIN INR THERAPY RANGES [facility] STANDARD DOSE: 2.0 - 3.0 Includes: PROPHYLAXIS for venous thrombosis, [facility] systemic embolization; TREATMENT for venous thrombosis and/or pulmonary embolus. HIGH RISK: Target INR is 2.5-3.5 for patients with mechanical heart valves. Performing Organization Address [facility] Phone Number [address] [address] [phone] [place] [address] * Hepatic function panel (05/01/2018 12:36 PM FAMILY LIFE EDUCATOR) Only the most recent of 5 results within the time period is included. Protein, Total 7.3 6.0 - 8.3 gm/dL [facility] Albumin 3.2 (L) 3.5 - 5.0 g/dL [facility] Total Bilirubin 1.9 (H) 0.2 - 1.2 mg/dL [facility] Bilirubin, Direct 1.1 (H) 0.1 - 0.5 mg/dL [facility] Alkaline Phosphatase 191 (H) 40 - 150 U/L [facility] AST 30 5 - 34 U/L [facility] ALT 22 6 - 55 U/L [facility] Specimen Blood Performing Organization Address City/[facility]/Zipcode Phone Number [facility] [address] [place] [address] [facility] * Basic Metabolic Panel (05/01/2018 12:36 PM FAMILY LIFE EDUCATOR) Only the most recent of 5 results within the time period is included. Sodium 139 136 - 145 meq/L [facility] Potassium 3.8 3.5 - 5.1 meq/L [facility] Chloride 104 98 - 107 meq/L [facility] CO2 31 (H) 22 - 29 meq/L [facility] BUN 34 (H) 7 - 21 mg/dL [facility] Creatinine 1.57 (H) 0.57 - 1.25 mg/dL [facility] Glucose 51 (L) 70 - 105 mg/dL [facility] Calcium 9.4 8.4 - 10.2 mg/dL [facility] EGFR 34Comment: ESTIMATED GFR IS mL/min/1.73 sq m [facility] NOT ACCURATE CREATININE [facility] CLEARANCE IN PREDICTING GLOMERULAR FILTRATION RATE. ESTIMATED GFR IS NOT APPLICABLE FOR DIALYSIS PATIENTS. Specimen Blood Performing Organization Address City/[facility]/Zipcode Phone Number [facility] [address] [place] [address] [facility] * CBC with platelet count + automated diff (05/01/2018 12:35 PM FAMILY LIFE EDUCATOR) Only the most recent of 6 results within the time period is included. WBC 6.5 3.5 - 10.5 K/L [facility] RBC 3.56 (L) 3.93 - 5.22 M/L [facility] Hemoglobin 12.0 11.2 - 15.7 GM/DL [facility] Hematocrit 36.2 34.1 - 44.9 % [facility] MCV 101.7 (H) 79.4 - 94.8 fL [facility] MCH 33.7 (H) 25.6 - 32.2 pg [facility] MCHC 33.1 32.2 - 35.5 GM/DL [facility] RDW 14.8 (H) 11.7 - 14.4 % [facility] Platelets 116 (L) 150 - 450 K/CU MM [facility] MPV 10.7 9.4 - 12.3 fL [facility] nRBC 0 0 - 0 /100 WBC [facility] % Neutros 58 % [facility] % Lymphs 25 % [facility] % Monos 15 % [facility] % Eos 2 % [facility] % Baso 0 % [facility] # Neutros 3.76 1.56 - 6.13 K/L [facility] # Lymphs 1.64 1.18 - 3.74 K/L [facility] # Monos 0.95 (H) 0.24 - 0.36 K/L [facility] # Eos 0.15 0.04 - 0.36 K/L [facility] # Baso 0.02 0.01 - 0.08 K/L [facility] Immature 0 0 - 1 % [facility] Granulocytes-[facility] Specimen Blood Performing Organization Address City/State/Zipcode Phone Number [facility] [address] [place] [address] [facility] * TRANSFUSION SERVICE REPORT - SCAN (03/13/2018 5:53 PM FAMILY LIFE EDUCATOR) Narrative Performed At * XR mandible 4 views min (03/12/2018 11:01 AM FAMILY LIFE EDUCATOR) Narrative Performed At FINAL REPORT [facility] TECHNIQUE: Mandible four views minimal. INDICATION: Nonalcoholic fatty liver disease, pretransplant evaluation for liver transplant. COMPARISON: None. FINDINGS: The maxilla is edentulous. The mandibular molars are missing. There is likely some bone loss around the midline mandibular teeth. No acute fracture or dislocation. There is a lucent lesion over the frontal bone with a sclerotic margin which measures 6.7 cm. IMPRESSION: No acute fracture or dislocation. There is a lucent lesion of the left frontal bone with a sclerotic margin which measures 6.7 cm. This may be artifactual or volume averaging. However, consider a CT of the head for further evaluation to attempt to explain the recent lesion. Signed: Clark Perales MD Report Verified Date/Time:03/12/2018 13:39:02 Reading Location: [address] Radiology Reading Room Procedure Note Interface, External Ris In - 03/12/2018 1:41 PM FAMILY LIFE EDUCATOR FINAL REPORT TECHNIQUE: Mandible four views minimal. INDICATION: Nonalcoholic fatty liver disease, pretransplant evaluation for liver transplant. COMPARISON: None. FINDINGS: The maxilla is edentulous. The mandibular molars are missing. There is likely some bone loss around the midline mandibular teeth. No acute fracture or dislocation. There is a lucent lesion over the frontal bone with a sclerotic margin which measures 6.7 cm. IMPRESSION: No acute fracture or dislocation. There is a lucent lesion of the left frontal bone with a sclerotic margin which measures 6.7 cm. This may be artifactual or volume averaging. However, consider a CT of the head for further evaluation to attempt to explain the recent lesion. Signed: Clark Perales MD Report Verified Date/Time: 03/12/2018 13:39:02 Reading Location: [address] Radiology Reading Room Performing Organization Address City/State/Zipcode Phone Number [facility] * XR chest 2 views (03/12/2018 11:00 AM FAMILY LIFE EDUCATOR) Narrative Performed At Addendum Begins RIS REPORT STATUS:A The patchy opacity over the left base was compared to a CT of the abdomen and pelvis from 10/24/2016. This patchy opacity is most likely an area of scar/atelectasis in the lingula seen on arterial phase image 4. Signed: Clark Perales MD Report Verified Date/Time:03/12/2018 13:40:40 Reading Location: [address] Radiology Reading Room Addendum Ends FINAL REPORT TECHNIQUE: Frontal and lateral views of the chest. INDICATION: Nonalcoholic fatty liver disease, pretransplant evaluation for liver transplant. COMPARISON: None. FINDINGS: LINES/TUBES: None. LUNGS: There is a questionable patchy opacity over the left base which is not seen on the lateral view. PLEURA: No pleural effusion or pneumothorax. HEART AND MEDIASTINUM: The cardiomediastinal silhouette is within normal limits. SOFT TISSUES AND BONES: Thoracic kyphosis with mild anterior wedging of several mid thoracic vertebrae. IMPRESSION: Questionable patchy opacity over the left base is not seen on the lateral view. This is of indeterminate cause and could be a prominent epicardial fat pad or true lung opacity, follow-up chest radiograph should be considered in 8-12 weeks. Signed: Clark Perales MD Report Verified Date/Time:03/12/2018 13:29:47 Reading Location: [address] Radiology Reading Room Procedure Note Interface, External Ris In - 03/12/2018 1:42 PM FAMILY LIFE EDUCATOR Addendum Begins REPORT STATUS:A The patchy opacity over the left base was compared to a CT of the abdomen and pelvis from 10/24/2016. This patchy opacity is most likely an area of scar/atelectasis in the lingula seen on arterial phase image 4. Signed: Clark Perales MD Report Verified Date/Time: 03/12/2018 13:40:40 Reading Location: [address] Radiology Reading Room Addendum Ends FINAL REPORT TECHNIQUE: Frontal and lateral views of the chest. INDICATION: Nonalcoholic fatty liver disease, pretransplant evaluation for liver transplant. COMPARISON: None. FINDINGS: LINES/TUBES: None. LUNGS: There is a questionable patchy opacity over the left base which is not seen on the lateral view. PLEURA: No pleural effusion or pneumothorax. HEART AND MEDIASTINUM: The cardiomediastinal silhouette is within normal limits. SOFT TISSUES AND BONES: Thoracic kyphosis with mild anterior wedging of several mid thoracic vertebrae. IMPRESSION: Questionable patchy opacity over the left base is not seen on the lateral view. This is of indeterminate cause and could be a prominent epicardial fat pad or true lung opacity, follow-up chest radiograph should be considered in 8-12 weeks. Signed: lCark Perales MD Report Verified Date/Time: 03/12/2018 13:29:47 Reading Location: [address] Radiology Reading Room Performing Organization Address City/State/Zipcode Phone Number [employer] * XR dxa bone density study (03/12/2018 10:59 AM FAMILY LIFE EDUCATOR) Narrative Performed At FINAL REPORT [employer] Bone mineral density study 03/12/2018. HISTORY PROVIDED: NAFLD, pretransplant evaluation for liver transplant. COMPARISON: None available FINDINGS: Evaluation of the left and right femoral necks and lumbar spine was performed utilizing a bone densitometer. The left femoral neck bone mineral density is 0.641gm/cm2, the T-score is -2.9, and the Z-score is -2.6. The right femoral neck bone mineral density is 0.753gm/cm2, the T-score is -2.0, and the Z-score is -1.8. The lumbar spine total bone mineral density is 1.385gm/cm2, the T-score is 1.5, and the Z-score is 1.2. IMPRESSION: WHO classification of osteoporosis for the left femoral neck. WHO classification of osteopenia for the right femoral neck. WHO classification of normal for the lumbar spine. Please note that there are multilevel degenerative changes of the lumbar spine which can falsely elevate the measured bone mineral density. The bone mineral density of the femoral necks is felt to be more accurate. Diagnostic criteria (World Health Organization)- Normal: BMD measurement less than one standard deviation from young adult population Osteopenia: BMD measurement between 1 and 2.4 standard deviations below Osteoporosis: BMD measurement greater than or equal to 2.5 standard deviations below Severe osteoporosis: Osteoporosis and one or more fragility fractures Signed: Shae Tong MD Report Verified Date/Time:03/12/2018 13:09:05 Reading Location: [facility] Reading Room Procedure Note Interface, External Ris In - 03/12/2018 1:11 PM FAMILY LIFE EDUCATOR FINAL REPORT Bone mineral density study 03/12/2018. HISTORY PROVIDED: NAFLD, pretransplant evaluation for liver transplant. COMPARISON: None available FINDINGS: Evaluation of the left and right femoral necks and lumbar spine was performed utilizing a bone densitometer. The left femoral neck bone mineral density is 0.641gm/cm2, the T-score is -2.9, and the Z-score is -2.6. The right femoral neck bone mineral density is 0.753gm/cm2, the T-score is -2.0, and the Z-score is -1.8. The lumbar spine total bone mineral density is 1.385gm/cm2, the T-score is 1.5, and the Z-score is 1.2. IMPRESSION: WHO classification of osteoporosis for the left femoral neck. WHO classification of osteopenia for the right femoral neck. WHO classification of normal for the lumbar spine. Please note that there are multilevel degenerative changes of the lumbar spine which can falsely elevate the measured bone mineral density. The bone mineral density of the femoral necks is felt to be more accurate. Diagnostic criteria (World Health Organization)- Normal: BMD measurement less than one standard deviation from young adult population Osteopenia: BMD measurement between 1 and 2.4 standard deviations below Osteoporosis: BMD measurement greater than or equal to 2.5 standard deviations below Severe osteoporosis: Osteoporosis and one or more fragility fractures Signed: Shae Tong MD Report Verified Date/Time: 03/12/2018 13:09:05 Reading Location: [facility] Mamm Reading Room Performing Organization Address City/State/Zipcode Phone Number [facility] * Phosphorus (03/12/2018 9:53 AM FAMILY LIFE EDUCATOR) Phosphorus 3.0 2.3 - 4.7 mg/dL [facility] Specimen Blood Performing Organization Address [facility] Phone Number [address] * Magnesium (03/12/2018 9:53 AM FAMILY LIFE EDUCATOR) Magnesium 1.4 (L) 1.6 - 2.6 mg/dL [facility] Specimen Blood Performing Organization Address [facility] Phone Number [address] * Gamma Glutamyl Transferase (GGT) (03/12/2018 9:53 AM FAMILY LIFE EDUCATOR) GGT 73 (H) 9 - 64 U/L [facility] Specimen Blood Performing Organization Address [facility] Phone Number [address] * Bilirubin, direct (03/12/2018 9:53 AM FAMILY LIFE EDUCATOR) Bilirubin, Direct 1.0 (H) 0.1 - 0.5 mg/dL [facility] Specimen Blood Performing Organization Address [facility] Phone Number [address] * Comprehensive metabolic panel (03/12/2018 9:53 AM FAMILY LIFE EDUCATOR) Only the most recent of 2 results within the time period is included. Protein, Total 7.2 6.0 - 8.3 gm/dL [facility] Albumin 2.8 (L) 3.5 - 5.0 g/dL [facility] Alkaline Phosphatase 149 40 - 150 U/L [facility] Total Bilirubin 1.6 (H) 0.2 - 1.2 mg/dL [facility] Sodium 136 136 - 145 meq/L [facility] Potassium 4.5 3.5 - 5.1 meq/L [facility] Chloride 103 98 - 107 meq/L [facility] CO2 27 22 - 29 meq/L [facility] BUN 39 (H) 7 - 21 mg/dL [facility] Creatinine 1.49 (H) 0.57 - 1.25 mg/dL [facility] Glucose 113 (H) 70 - 105 mg/dL [facility] Calcium 9.0 8.4 - 10.2 mg/dL [facility] AST 31 5 - 34 U/L [facility] ALT 16 6 - 55 U/L [facility] EGFR 36Comment: ESTIMATED GFR IS mL/min/1.73 sq m [facility] NOT ACCURATE CREATININE [facility] CLEARANCE IN PREDICTING GLOMERULAR FILTRATION RATE. ESTIMATED GFR IS NOT APPLICABLE FOR DIALYSIS PATIENTS. Specimen Blood Performing Organization Address City/[facility]/[place] [phone] [place] [address] * Iron, TIBC, % sat. (without ferritin) (03/12/2018 9:41 AM FAMILY LIFE EDUCATOR) Iron 77 40 - 160 ug/dL [facility] TIBC 200 (L) 250 - 450 ug/dL [facility] Iron % Saturation 39 20 - 55 % [facility] Specimen Blood Performing Organization Address City/State/Zipcode Phone Number [address] [address] [facility] * Vitamin D, 25-Hydroxy (03/12/2018 9:41 AM FAMILY LIFE EDUCATOR) Vitamin D 25-Hydroxy 14.0 6.6 - 49.9 ng/mL [facility] Specimen Blood Narrative Performed At Effective 02/06/2017: Reference Range Change [facility] New: 6.6-49.9 ng/mL Previous: 13.0-47.8 ng/mL [facility] Recommended Vitamin D Target Range: 30.0-40.0 ng/mL Performing Organization Address [facility] Phone Number [address] * Transferrin (03/12/2018 9:41 AM FAMILY LIFE EDUCATOR) Transferrin 160 (L) 174 - 382 mg/dL [facility] Specimen Blood Performing Organization Address [facility] Phone Number [address] * Ferritin (03/12/2018 9:41 AM FAMILY LIFE EDUCATOR) Ferritin 731 (H) 5 - 275 ng/mL [facility] Specimen Blood Performing Organization Address [facility] Phone Number [address] * Calcium, Ionized (03/12/2018 9:04 AM FAMILY LIFE EDUCATOR) Calcium, Ion 1.07 (L) 1.12 - 1.27 mmol/L [facility] pH, Blood 7.34 [facility] Specimen Blood Performing Organization Address [facility] Phone Number [address] * Drug screen, urine, transplant (03/12/2018 8:51 AM FAMILY LIFE EDUCATOR) Specimen Urine Narrative Performed At Performing Organization Address [facility] Phone Number [facility] [address] [place] [address] * aPTT (03/12/2018 8:47 AM FAMILY LIFE EDUCATOR) PTT 37.4 (H) 22.5 - 36.0 seconds [facility] Specimen Blood Performing Organization Address [facility] [place] [address] [facility] * Fibrinogen (03/12/2018 8:47 AM FAMILY LIFE EDUCATOR) Fibrinogen 390 225 - 434 mg/dl [facility] Specimen Blood Performing Organization Address City/[facility] Phone Number [address] [address] [facility] * Type and screen, automated (03/12/2018 7:40 AM FAMILY LIFE EDUCATOR) ABO/RH AUTOMATED (BEAKER) A POSITIVE [facility] Ab Scrn NEGATIVE [facility] Specimen Blood Performing Organization Address [facility] [place] [address] [facility] * T Spot TB (03/12/2018 7:40 AM FAMILY LIFE EDUCATOR) T-Spot TB Negative [facility] Neg Ctrl Spot Count 0 [facility] Panel A Spot 0 [facility] Panel B Spot 0 [facility] Pos Ctrl Spot Ct 0 [facility] Scan Result [facility] Specimen Blood Narrative Performed At Performing Organization Address [facility] Phone Number [facility] [address] [place] [address] LABORATORIES 100 * HIV-1 Antigen with HIV-1/2 Antibody (03/12/2018 7:40 AM FAMILY LIFE EDUCATOR) HIV-1 Antigen with HIV NON-REACTIVE Nonreactive [facility] 1&2 Antibody [facility] Specimen Blood Performing Organization Address City/[facility]/Zipcode Phone Number [address] [address] [facility] * Cytomegalovirus antibody, IgM (03/12/2018 7:40 AM FAMILY LIFE EDUCATOR) CMV IGM Negative Negative, Equivocal [facility] Specimen Blood Narrative Performed At CMV IgM Result Interpretation: [facility] </=0.8 Al Negative [facility] 0.9-1.0 Al Equivocal >/=1.1 Al Positive Performing Organization Address City/[facility]/Zipcode Phone Number [facility] [address] [place] [address] [facility] * Hepatitis A antibody, IgM (03/12/2018 7:40 AM FAMILY LIFE EDUCATOR) Hep A IgM HEPATITIS A TEST NEGATIVE Nonreactive [facility] Specimen Blood Performing Organization Address [facility] Phone Number [facility] [address] [place] [address] [facility] * Carbohydrate antigen 19-9 (CA 19-9) (03/12/2018 7:40 AM FAMILY LIFE EDUCATOR) CA 19-9 23 <34 U/mL [facility] Comment: INCORPORATED This test was performed using the Siemens (SCIenergy) Chemiluminescent method. Values obtained from different assay methods cannot be used interchangeably. CA19-9 levels, regardless of value, should not be interpreted as absolute evidence of the presence or absence of disease. Specimen Blood Narrative Performed At Performing Lab [facility] [employer] Embedded Chat [address] [address] Helen Shahid MD, PhD, AMBER Performing Organization Address [facility] Phone Number [employer] [place], [address] [place] [address] * Zinc (03/12/2018 7:40 AM FAMILY LIFE EDUCATOR) Zinc 49 (L) 60 - 130 mcg/dL [facility] Comment: INCORPORATED This test was developed and its analytical performance characteristics have been determined by [employer] [place]. It has not been cleared or approved by the US Food and Drug Administration. This assay has been validated pursuant to the CLIA regulations and is used for clinical purposes. Specimen Blood Narrative Performed At Performing Lab [facility] *[employer]PL [employer] [place] [employer] [place], [address] [place] [address] Bhakti Colvin MD, PhD Performing Organization Address [facility] Phone Number [employer] [place], [address] [place] [address] * Hepatitis B core antibody, IgM (03/12/2018 7:40 AM FAMILY LIFE EDUCATOR) Hep B C IgM NON-REACTIVE Nonreactive [facility] Specimen Blood Performing Organization Address City/[facility]/Zipcode Phone Number [address] * EBV-VCA antibody, IgM (03/12/2018 7:40 AM FAMILY LIFE EDUCATOR) HERLINDA ENCARNACION VIRAL CAPSID Negative Negative, Equivocal [facility] ANTIGEN IGM [facility] Specimen Blood Narrative Performed At Herlinda Encarnacion Viral Capsid Antigen IgM Result Interpretation: [facility] </=0.8 Al Negative [facility] 0.9-1.0 Al Equivocal >/=1.1 Al Positive Performing Organization Address [facility] Phone Number [address] * EBV-VCA antibody, IgG (03/12/2018 7:40 AM FAMILY LIFE EDUCATOR) HERLINDA ENCARNACION VIRAL CAPSID Positive (A) Negative, Equivocal [facility] ANTIGEN IGG [facility] Specimen Blood Narrative Performed At Herlinda Encarnacion Viral Capsid Antigen IgG Result Interpretation: [facility] </=0.8 Al Negative [facility] 0.9-1.0 Al Equivocal >/=1.1 Al Positive Performing Organization Address [facility] Phone Number [address] * Screen, urine (03/12/2018 7:40 AM FAMILY LIFE EDUCATOR) Preg Test, Ur Negative [facility] Specimen Urine Performing Organization Address City/[facility]/Zipcode Phone Number [address] * RPR (03/12/2018 7:40 AM FAMILY LIFE EDUCATOR) RPR Nonreactive Nonreactive [facility] Specimen Blood Performing Organization Address City/[facility]/Zipcode Phone Number [address] * Hepatitis B surface antigen (03/12/2018 7:40 AM FAMILY LIFE EDUCATOR) hepatitis B Surface Ag NON-REACTIVE Nonreactive [facility] Specimen Blood Performing Organization Address City/[facility]/Zipcode Phone Number [address] * Cytomegalovirus antibody, IgG (03/12/2018 7:40 AM FAMILY LIFE EDUCATOR) CYTOMEGALOVIRUS, IGG Positive (A) Negative, Equivocal [facility] Specimen Blood Narrative Performed At CMV IgG Result Interpretation: [facility] </=0.8 Al Negative [facility] 0.9-1.0 Al Equivocal >/=1.1 AlPositive Performing Organization Address [facility] Phone Number [address] * Urinalysis w/Microscopic (03/12/2018 7:40 AM FAMILY LIFE EDUCATOR) Color, UA Light Yellow [facility] Clarity, UA Clear [facility] Specific [place], UA 1.006 1.001 - 1.035 [facility] pH, UA 6.0 5.0 - 8.0 [facility] Protein, UA Negative Negative [facility] Glucose, UA Negative Negative [facility] Ketones, UA Negative Negative [facility] Bilirubin, UA Negative Negative [facility] Blood, UA Negative Negative [facility] Nitrite, UA Negative Negative [facility] Leukocytes, UA Negative Negative [facility] Urobilinogen, UA 0.2 0.2 - 1.0 mg/dL [facility] RBC, UA <1 /HPF [facility] WBC, UA 2 /HPF [facility] Bacteria, UA Rare [facility] Mucus Rare [facility] Squam Epithel, UA 1 /HPF [facility] Hyaline Casts, UA 5 /LPF [facility] Specimen Source [facility] Specimen Urine Performing Organization Address City/State/Zipcode Phone Number [address] * Uric acid (03/12/2018 7:40 AM FAMILY LIFE EDUCATOR) Uric Acid 12.2 (H) 2.6 - 7.2 mg/dL [facility] Specimen Blood Performing Organization Address City/[facility] Phone Number [address] * T3 (03/12/2018 7:40 AM FAMILY LIFE EDUCATOR) T3, Total 84 48 - 159 ng/dL [facility] Specimen Blood Performing Organization Address City/[facility]/Zipcode Phone Number [address] * TSH (03/12/2018 7:40 AM FAMILY LIFE EDUCATOR) TSH 1.34 0.35 - 4.94 uIU/mL [facility] Specimen Blood Performing Organization Address City/[facility] Phone Number [address] * T4 (03/12/2018 7:40 AM FAMILY LIFE EDUCATOR) T4, Total 5.3 4.9 - 11.7 ug/dL [facility] Specimen Blood Performing Organization Address City/[facility] Phone Number [address] * Hemoglobin A1c (03/12/2018 7:40 AM FAMILY LIFE EDUCATOR) Hemoglobin A1C 5.1 4.3 - 6.1 % [facility] Specimen Blood Performing Organization Address City/State/[place] [address] [phone] [place] [address] * Carcinoembryonic Antigen (CEA) (03/12/2018 7:40 AM FAMILY LIFE EDUCATOR) CEA, SERUM 16.7 (H) 0.0 - 5.0 ng/mL [facility] Specimen Blood Performing Organization Address City/[facility] [place] [address] [phone] [place] [address] * Ethanol (03/12/2018 7:40 AM FAMILY LIFE EDUCATOR) Ethanol Lvl <10 <=10 mg/dL [facility] Specimen Blood Performing Organization Address [facility] [place] [address] [phone] [place] [address] * Lipid panel (03/12/2018 7:40 AM FAMILY LIFE EDUCATOR) Triglycerides 69 mg/dL [facility] Cholesterol 110 mg/dL [facility] HDL 38 mg/dL [facility] LDL Calculated 58 mg/dL [facility] Specimen Blood Narrative Performed At Triglyceride Reference Range: [facility] Low Risk <150 [facility] [id number] High Risk 200-499 Very High Risk>=500 Cholesterol Reference Range: Low Risk <200 [id number] High Risk>240 HDL Cholesterol Reference Range: Low Risk >=60 High Risk <40 LDL Cholesterol Reference Range: Optimal<100 Near [id number] Very High >=190 Performing Organization Address [facility] [place] [address] [phone] [place] [address] * Blood gas, arterial (03/12/2018 7:26 AM FAMILY LIFE EDUCATOR) pH, Arterial 7.44 7.35 - 7.45 [facility] pCO2, Arterial 37 35 - 45 mmHg [facility] pO2, Arterial 92 (H) 80 - 90 mmHg [facility] O2 Sat, Arterial 97.3 (H) 96.0 - 97.0 % [facility] HCO3, Arterial 24 21 - 29 mmol/L [facility] Base Excess, Arterial 0.5 -2.0 - 3.0 mmol/L [facility] Patient Temperature 37.0 C [facility] FIO2 21.0 % [facility] Specimen Blood, Arterial - Arm, Left Performing Organization Address City/[facility] [place] [address] [phone] * Blood culture (03/04/2018 4:30 PM FAMILY LIFE EDUCATOR) Only the most recent of 2 results within the time period is included. Result No growth in 5 days [facility] Specimen Blood Performing Organization Address City/[facility] [place] [address] [phone] [place] [address] * Creatine Kinase (CK) (03/04/2018 4:23 PM FAMILY LIFE EDUCATOR) Only the most recent of 2 results within the time period is included. Total CK 109 29 - 200 U/L [facility] Specimen Blood Performing Organization Address City/[facility] [place] [address] [phone] * MR abdomen without & with IV contrast (11/19/2017 12:40 PM CDT) Narrative Performed At FINAL REPORT [employer] TECHNIQUE: MRI of the abdomen WITHOUT and [...] lesions. Signed: John Gipson MD Report Verified Date/Time:11/19/2017 16:09:13 Reading Location: [facility] C013 CT Body Reading Room Procedure Note Interface, [...] Report Verified Date/Time: 11/19/2017 16:09:13 Reading Location: [facility] C013Y CT Body Reading Room Performing Organization Address City/State/Zipcode Phone Number [facility] * CBC with platelet count + automated diff (11/18/2017 2:10 PM CDT) WBC 4.8 3.4 - 10.8 x10E3/uL [facility] RBC 3.24 (L) 3.77 - 5.28 x10E6/uL [facility] 1 Hemoglobin 11.0 (L) 11.1 - 15.9 g/dL [facility] 1 Hematocrit 34.3 34.0 - 46.6 % [facility] 1 MCV 106 (H) 79 - 97 fL [facility] 1 MCH 34.0 (H) 26.6 - 33.0 pg [facility] 1 MCHC 32.1 31.5 - 35.7 g/dL [facility] 1 RDW 15.1 12.3 - 15.4 % [facility] 1 Platelets 81 (LL) 150 - 379 x10E3/uL [facility] 1 Comment: Platelet count verified by examination of peripheral blood smear. Decreased. % Neutros 58 Not Estab. % [facility] 1 % Lymphs 26 Not Estab. % [facility] 1 % Monos 12 Not Estab. % [facility] 1 % Eos 4 Not Estab. % [facility] % Baso 0 Not Estab. % [facility] 1 # Neutros 2.8 1.4 - 7.0 x10E3/uL [facility] # Lymphs 1.3 0.7 - 3.1 x10E3/uL [facility] 1 # Monos 0.6 0.1 - 0.9 x10E3/uL [facility] # Eos 0.2 0.0 - 0.4 x10E3/uL [facility] 1 Baso (Absolute) 0.0 0.0 - 0.2 x10E3/uL [facility] % Immature Grans 0 Not Estab. % [facility] 1 # Immature Grans 0.0 0.0 - 0.1 x10E3/uL [facility] 1 Hematology Comments: Note:Comment: Verified by [facility] 1 microscopic examination. Specimen Blood Narrative Performed At Performed at: - [id number] [employer]: Harinder Heck MD, Phone:[phone] Performing Organization Address City/State/Zipcode Phone Number [facility] 1 after 05/24/2017 Insurance Payer Benefit Subscriber ID Type Phone Address Plan / Group MEDICAID - MEDICAID [facility] xxxxxxxxx Medicaid CARE [facility] Contracted PLAN [facility] xxxxxxxxx MEDICARE MGD CARE [facility] [facility] - [facility] xxxxxxxxx Transplant MEDICARE [facility] CARE [facility] ONLY [facility] REPL
[2018-05-25] MEDS ORDERED: ASPIRIN 81 MG CHEW TAB PO ONE (14:45)
--- NOTE | 2018-05-25 15:13 | NUR ---
PATIENT SEEN BY DR. LAMBERT IN TRIAGE
[2018-05-25 15:48] LABS: BACTERIA,URINE FEW /HPF; BILIRUBIN,URINE NEGATIVE (NEGATIVE); CLARITY,URINE HAZY (CLEAR); COLOR,URINE YELLOW (YELLOW); EPITHELIAL CELLS,URINE MODERATE /LPF; KETONES,URINE NEGATIVE (NEGATIVE); LEUKOCYTE ESTERASE ,URINE NEGATIVE (NEGATIVE); NITRITE,URINE NEGATIVE (NEGATIVE); PROTEIN,URINE DIPSTICK NEGATIVE (NEGATIVE); RBC,URINE 0-5 /HPF (0-5); URINE UROBILINOGEN 0.2 mg/dL (0.2 - 1); WBC,URINE (MAN) 0-5 /HPF (0-5)
--- NOTE | 2018-05-25 15:48 | NUR ---
BLOOD HEMOLYZED, REDRAWN AND SENT TO LAB
[2018-05-25 16:09] LABS: BASOPHILS % 0.4 % (0.0-1.0); EOSINOPHILS # (AUTO) 0.1 (0.0-0.4); EOSINOPHILS % 2.1 % (0.0-6.0); MEAN CORPUSCULAR HEMOGLOBIN 36.7 pg (28-32); MEAN CORPUSCULAR HGB CONC 36.7 g/dL (31-35); MONOCYTES # (AUTO) 0.7 (0.2-0.8); MONOCYTES % 13.6 % (4.4-11.3); NEUTROPHILS # (AUTO) 3.5 (2.1-6.9); NEUTROPHILS % 65.5 % (38.7-80.0); PLATELET COUNT 86 x10e3/uL (140-360); RED CELL DISTRIBUTION WIDTH 16.3 % (11.7-14.4)
[2018-05-25 16:36] LABS: ALBUMIN 2.7 g/dL (3.5-5.0); ALBUMIN/GLOBULIN RATIO 0.8 (0.8-2.0); ANION GAP 13.3 mmol/L (8-16); CALCIUM 8.3 mg/dL (8.4-10.2); CREATININE, SERUM 1.67 mg/dL (0.57-1.11); POTASSIUM 4.3 mmol/L (3.5-5.1)
[2018-05-25 16:43] LABS: CREATINE KINASE MB 1.4 ng/mL (0-5.0)
== END 2018-05-25 18:10 | disposition home or self-care (01) ==
LOC: ER 13:15
DX: R53.1 Weakness (principal); N18.9 Chronic kidney disease, unspecified; E11.9 Type 2 diabetes mellitus without complications; K74.60 Unspecified cirrhosis of liver
CPT/HCPCS: 36415; 80053; 81001; 82140; 82550; 82553; 84484; 85025; 93005; 99283

== ENCOUNTER 2018-07-13 16:07 | Inpatient (IN) | payer MEDICARE, OTHER ==
[~2018-07-13] VITALS: Ht 170.2 cm; Wt 163.7 kg
--- OUTSIDE RECORDS SUMMARY | 2018-07-13 16:10 | XMS REPORT | Clinical Summary ---
Author Author HANNAH [facility] Address Unknown Phone Unavailable Care Team Providers Care Certified Medical Records Coder Name Role Phone Yarelis Paredes PCP Johnathon [...] is 54. She will meet with our cyber security systems engineer to create an appropriate diet plan and will exercise as tolerated. 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 Continue follow up with hepatology. Encounters Care Team Description Date Type Specialty Gwen Valencia MA 06/18/2018 Abstract Hepatology Umer Reis MD Abnormal liver diagnostic imaging 05/21/2018 Hospital Radiology Encounter Shahid Graves MD 05/19/2018 Hospital Radiology Encounter 05/13/2018 Travel Shahid Graves MD Pre-operative cardiovascular examination; Liver transplant candidate; LVH (left ventricular hypertrophy) 05/12/2018 Hospital Cardiology Encounter Shahid Garves MD Pre-operative clearance 05/12/2018 Hospital Radiology Encounter Shahid Graves MD 05/07/2018 Outside Orders Central Scheduling Gabrielle Ybarra RN Lesion of mandible (Primary Dx) 05/05/2018 [...] Hepatology Maria T De La Torre RN Results 05/01/2018 Telephone Hepatology Shahid Graves MD Pre-operative clearance (Primary Dx) 05/01/2018 Orders Only Cardiology Shahid Graves MD Pre-operative cardiovascular examination (Primary Dx); Liver transplant candidate; LVH (left ventricular hypertrophy) 05/01/2018 Orders Only Cardiology Loida Tena 04/02/2018 Abstract Transplant Hepatology Jacque Anand 03/19/2018 Abstract Transplant Hepatology Maldonado Rodgers MD Provider, [facility] Generic 03/13/2018 [facility] Charge Transplant Hepatology Visit Li Killian RN 03/13/2018 Documentation Transplant Hepatology Anthony Powell, [facility] 03/13/2018 Documentation Transplant Hepatology Umer Reis MD [...] Hepatology Umer Reis MD 03/12/2018 Outside Orders Jacque Anand R 03/12/2018 Documentation Transplant Hepatology Lizzy Sun [...] Rodgers MD 02/07/2018 Abstract Transplant Hepatology Natali Goldberg, RON Results 02/06/2018 Telephone Hepatology Natali Goldberg NP 02/06/2018 Orders Only Hepatology Umer Reis MD Other cirrhosis of liver (HCC) (Primary Dx); Morbid obesity due to excess calories ; Screening for malignant neoplasm; Immunity status testing; Abnormal liver enzymes; Hyperlipidemia, unspecified hyperlipidemia type; Metabolic syndrome; Steatohepatitis, non-alcoholic; Elevated CK; Adnexal mass; Acute kidney injury (HCC) 02/05/2018 Office Visit Hepatology Carmen Cortez RN 01/31/2018 Abstract Transplant Maria T De La [...] T De La Torre RN 10/22/2017 Abstract Hepatology Ana Stanton RN 10/16/2017 Abstract HepatAna Asher RN 10/16/2017 Abstract Hepatology Maria T De [...] Umer Reis MD 07/31/2017 Outside Orders Radiology after 07/12/2017 Family History Medical History Relation Name Comments [...] Taken Vital Sign Reading 05/19/2018 2:51 PM HOUSE SERVANT Blood Pressure 104/56 05/19/2018 2:51 PM HOUSE SERVANT Pulse 80 05/01/2018 10:39 AM HOUSE SERVANT Temperature 36.3 C (97.4 F) 05/19/2018 2:51 PM HOUSE SERVANT Respiratory Rate 14 05/19/2018 2:51 PM HOUSE SERVANT Oxygen Saturation 99% 03/12/2018 7:20 AM HOUSE SERVANT Inhaled Oxygen 21% Concentration 05/01/2018 10:39 AM HOUSE SERVANT Weight 149.5 kg (329 lb 9.6 oz) 05/01/2018 10:39 AM HOUSE SERVANT Height 171.5 cm (5' 7.52") 05/01/2018 10:39 AM HOUSE SERVANT Body Mass Index 50.83 Plan of Treatment Care Team Description Date Type Specialty Resource, [facility] 07/28/2018 Office Visit Hepatology Procedures Comments Procedure Name Priority Date/Time Associated Diagnosis CT ABDOMEN WITH/WITHOUT Routine 05/21/2018 Abnormal liver diagnostic CONTRAST 10:36 AM HOUSE SERVANT imaging POCT-CREATININE Routine 05/21/2018 10:14 AM HOUSE SERVANT TREADMILL Routine 05/19/2018 TOLERANCE(NON-NUCLEAR 2:44 PM HOUSE SERVANT TREADMILL) NM CARDIAC PET PERFUSION Routine 05/19/2018 Pre-operative clearance REST AND/OR STRESS 2:44 PM HOUSE SERVANT ECHOCARDIOGRAM REPORT - 05/12/2018 SCAN 1:50 PM HOUSE SERVANT 2D ECHO W/ DOPPLER Routine 05/12/2018 Pre-operative (CW/PW/COLOR) 11:41 AM HOUSE SERVANT cardiovascular examination Liver transplant candidate LVH (left ventricular hypertrophy) ALPHA FETOPROTEIN (AFP), Routine 05/01/2018 Screening for malignant TUMOR MARKER 12:36 PM HOUSE SERVANT neoplasm PROTHROMBIN TIME/INR Routine 05/01/2018 Other cirrhosis of liver 12:36 PM HOUSE SERVANT (HCC) HEPATIC FUNCTION PANEL Routine 05/01/2018 Other cirrhosis of liver 12:36 PM HOUSE SERVANT (HCC) BASIC METABOLIC PANEL (7) Routine 05/01/2018 Other cirrhosis of liver 12:36 PM HOUSE SERVANT (HCC) CBC W/PLT COUNT & AUTO Routine 05/01/2018 Other cirrhosis of liver DIFFERENTIAL 12:35 PM HOUSE SERVANT (HCC) CBC W/PLT COUNT & AUTO Routine 05/01/2018 Other cirrhosis of liver DIFFERENTIAL 12:35 PM HOUSE SERVANT (HCC) TRANSFUSION SERVICE 03/13/2018 REPORT - SCAN 5:53 PM HOUSE SERVANT XR MANDIBLE MIN 4 VIEWS Routine 03/12/2018 Pre-transplant evaluation 11:01 AM HOUSE SERVANT for liver transplant NAFLD (nonalcoholic fatty liver disease) XR CHEST 2 VIEWS Routine 03/12/2018 Pre-transplant evaluation 11:00 AM HOUSE SERVANT for liver transplant NAFLD (nonalcoholic fatty liver disease) XR DXA BONE DENSITY STUDY Routine 03/12/2018 Pre-transplant evaluation 10:59 AM HOUSE SERVANT for liver transplant NAFLD (nonalcoholic fatty liver disease) PHOSPHORUS Routine 03/12/2018 Pre-transplant evaluation 9:53 AM HOUSE SERVANT for liver transplant NAFLD (nonalcoholic fatty liver disease) MAGNESIUM Routine 03/12/2018 Pre-transplant evaluation 9:53 AM HOUSE SERVANT for liver transplant NAFLD (nonalcoholic fatty liver disease) GAMMA GLUTAMYL Routine 03/12/2018 Pre-transplant evaluation TRANSFERASE (GGT) 9:53 AM HOUSE SERVANT for liver transplant NAFLD (nonalcoholic fatty liver disease) BILIRUBIN, DIRECT Routine 03/12/2018 Pre-transplant evaluation 9:53 AM HOUSE SERVANT for liver transplant NAFLD (nonalcoholic fatty liver disease) COMPREHENSIVE METABOLIC Routine 03/12/2018 Pre-transplant evaluation PANEL 9:53 AM HOUSE SERVANT for liver transplant NAFLD (nonalcoholic fatty liver disease) VITAMIN D, 25-HYDROXY Routine 03/12/2018 Pre-transplant evaluation 9:41 AM HOUSE SERVANT for liver transplant NAFLD (nonalcoholic fatty liver disease) FERRITIN Routine 03/12/2018 Pre-transplant evaluation 9:41 AM HOUSE SERVANT for liver transplant NAFLD (nonalcoholic fatty liver disease) IRON, TIBC, % SAT. Routine 03/12/2018 Pre-transplant evaluation (WITHOUT FERRITIN) 9:41 AM HOUSE SERVANT for liver transplant NAFLD (nonalcoholic fatty liver disease) TRANSFERRIN Routine 03/12/2018 Pre-transplant evaluation 9:41 AM HOUSE SERVANT for liver transplant NAFLD (nonalcoholic fatty liver disease) CALCIUM, IONIZED Routine 03/12/2018 Pre-transplant evaluation 9:04 AM HOUSE SERVANT for liver transplant NAFLD (nonalcoholic fatty liver disease) DRUG SCREEN, URINE, Routine 03/12/2018 Pre-transplant evaluation TRANSPLANT 8:51 AM HOUSE SERVANT for liver transplant NAFLD (nonalcoholic fatty liver disease) APTT Routine 03/12/2018 Pre-transplant evaluation 8:47 AM HOUSE SERVANT for liver transplant NAFLD (nonalcoholic fatty liver disease) PROTHROMBIN TIME/INR Routine 03/12/2018 Pre-transplant evaluation 8:47 AM HOUSE SERVANT for liver transplant NAFLD (nonalcoholic fatty liver disease) FIBRINOGEN Routine 03/12/2018 Pre-transplant evaluation 8:47 AM HOUSE SERVANT for liver transplant NAFLD (nonalcoholic fatty liver disease) TYPE AND SCREEN, Routine 03/12/2018 Pre-transplant evaluation AUTOMATED 7:40 AM HOUSE SERVANT for liver transplant NAFLD (nonalcoholic fatty liver disease) SCREEN, URINE Routine 03/12/2018 Pre-transplant evaluation 7:40 AM HOUSE SERVANT for liver transplant NAFLD (nonalcoholic fatty liver disease) URINALYSIS W/ MICROSCOPIC Routine 03/12/2018 Pre-transplant evaluation 7:40 AM HOUSE SERVANT for liver transplant NAFLD (nonalcoholic fatty liver disease) T SPOT TB Routine 03/12/2018 Pre-transplant evaluation 7:40 AM HOUSE SERVANT for liver transplant NAFLD (nonalcoholic fatty liver disease) RPR Routine 03/12/2018 Pre-transplant evaluation 7:40 AM HOUSE SERVANT for liver transplant NAFLD (nonalcoholic fatty liver disease) EBV ANTIBODY, IGM Routine 03/12/2018 Pre-transplant evaluation 7:40 AM HOUSE SERVANT for liver transplant NAFLD (nonalcoholic fatty liver disease) EBV ANTIBODY, IGG Routine 03/12/2018 Pre-transplant evaluation 7:40 AM HOUSE SERVANT for liver transplant NAFLD (nonalcoholic fatty liver disease) CYTOMEGALOVIRUS ANTIBODY, Routine 03/12/2018 Pre-transplant evaluation IGM 7:40 AM HOUSE SERVANT for liver transplant NAFLD (nonalcoholic fatty liver disease) CYTOMEGALOVIRUS ANTIBODY, Routine 03/12/2018 Pre-transplant evaluation IGG 7:40 AM HOUSE SERVANT for liver transplant NAFLD (nonalcoholic fatty liver disease) HIV-1 ANTIGEN WITH Routine 03/12/2018 Pre-transplant evaluation HIV-1/2 ANTIBODY 7:40 AM HOUSE SERVANT for liver transplant NAFLD (nonalcoholic fatty liver disease) HEPATITIS B CORE Routine 03/12/2018 Pre-transplant evaluation ANTIBODY, IGM 7:40 AM HOUSE SERVANT for liver transplant NAFLD (nonalcoholic fatty liver disease) HEPATITIS B SURFACE Routine 03/12/2018 Pre-transplant evaluation ANTIGEN 7:40 AM HOUSE SERVANT for liver transplant NAFLD (nonalcoholic fatty liver disease) HEPATITIS A ANTIBODY, IGM Routine 03/12/2018 Pre-transplant evaluation 7:40 AM HOUSE SERVANT for liver transplant NAFLD (nonalcoholic fatty liver disease) T4 Routine 03/12/2018 Pre-transplant evaluation 7:40 AM HOUSE SERVANT for liver transplant NAFLD (nonalcoholic fatty liver disease) T3 AP Routine 03/12/2018 Pre-transplant evaluation 7:40 AM HOUSE SERVANT for liver transplant NAFLD (nonalcoholic fatty liver disease) TSH Routine 03/12/2018 Pre-transplant evaluation 7:40 AM HOUSE SERVANT for liver transplant NAFLD (nonalcoholic fatty liver disease) URIC ACID Routine 03/12/2018 Pre-transplant evaluation 7:40 AM HOUSE SERVANT for liver transplant NAFLD (nonalcoholic fatty liver disease) ZINC Routine 03/12/2018 Pre-transplant evaluation 7:40 AM HOUSE SERVANT for liver transplant NAFLD (nonalcoholic fatty liver disease) CARCINOEMBRYONIC ANTIGEN Routine 03/12/2018 Pre-transplant evaluation (CEA) 7:40 AM HOUSE SERVANT for liver transplant NAFLD (nonalcoholic fatty liver disease) CARBOHYDRATE ANTIGEN 19-9 Routine 03/12/2018 Pre-transplant evaluation (CA 19-9) 7:40 AM HOUSE SERVANT for liver transplant NAFLD (nonalcoholic fatty liver disease) ETHANOL Routine 03/12/2018 Pre-transplant evaluation 7:40 AM HOUSE SERVANT for liver transplant NAFLD (nonalcoholic fatty liver disease) HEMOGLOBIN A1C Routine 03/12/2018 Pre-transplant evaluation 7:40 AM HOUSE SERVANT for liver transplant NAFLD (nonalcoholic fatty liver disease) LIPID PANEL Routine 03/12/2018 Pre-transplant evaluation 7:40 AM HOUSE SERVANT for liver transplant NAFLD (nonalcoholic fatty liver disease) CBC W/PLT COUNT & AUTO Routine 03/12/2018 Pre-transplant evaluation DIFFERENTIAL 7:37 AM HOUSE SERVANT for liver transplant NAFLD (nonalcoholic fatty liver disease) CBC W/PLT COUNT & AUTO Routine 03/12/2018 Pre-transplant evaluation DIFFERENTIAL 7:37 AM HOUSE SERVANT for liver transplant NAFLD (nonalcoholic fatty liver disease) BLOOD GAS, ARTERIAL Routine 03/12/2018 Pre-transplant evaluation 7:26 AM HOUSE SERVANT for liver transplant NAFLD (nonalcoholic fatty liver disease) BLOOD CULTURE Routine 03/04/2018 Urinary tract infection 4:30 PM HOUSE SERVANT without hematuria, site unspecified CBC W/PLT COUNT & AUTO Routine 03/04/2018 Other cirrhosis of liver DIFFERENTIAL 4:23 PM HOUSE SERVANT (HCC) CREATINE KINASE (CK) Routine 03/04/2018 Elevated CK 4:23 PM HOUSE SERVANT PROTHROMBIN TIME/INR Routine 03/04/2018 Other cirrhosis of liver 4:23 PM HOUSE SERVANT (HCC) CBC W/PLT COUNT & AUTO Routine 03/04/2018 Other cirrhosis of liver DIFFERENTIAL 4:23 PM HOUSE SERVANT (HCC) HEPATIC FUNCTION PANEL Routine 03/04/2018 Other cirrhosis of liver 4:23 PM HOUSE SERVANT (HCC) BASIC METABOLIC PANEL (7) Routine 03/04/2018 Other cirrhosis of liver 4:23 PM HOUSE SERVANT (HCC) BLOOD CULTURE Routine 03/04/2018 Urinary tract infection 4:23 PM HOUSE SERVANT without hematuria, site unspecified CBC W/PLT COUNT [...] Screening for malignant neoplasm Lymph nodes enlarged after 07/12/2017 Results * CT abdomen with/without contrast (05/21/2018 10:36 AM HOUSE SERVANT) Narrative Performed At FINAL REPORT [employer] [facility] ABDOMINAL CT DATED 05/21/2018 COMPARISON: October 24, [...] MD Report Verified Date/Time:05/21/2018 14:37:35 Reading Location: [facility] B1 C013Y CT Body Reading Room Procedure Note Interface, External Ris In - 05/21/2018 2:39 PM HOUSE SERVANT FINAL REPORT ABDOMINAL CT DATED 05/21/2018 COMPARISON: [...] Report Verified Date/Time: 05/21/2018 14:37:35 Reading Location: [facility] B1 C013Y CT Body Reading Room Performing Organization Address City/State/Zipcode Phone Number GE RIS * POC-Creatinine (05/21/2018 10:14 AM HOUSE SERVANT) POC-Creatinine 1.4 (H)Comment: TESTED AT 0.6 - 1.3 mg/dL [facility] [address] [facility] [address] POC-EGFR 39 mL/min/1.73M2 [facility] Specimen Blood Narrative Performed At Performing Organization Address City/[facility] Phone Number [facility] [address] [place] [id number] [facility] * Treadmill tolerance(Non-Nuclear Treadmill) (05/19/2018 2:44 PM HOUSE SERVANT) Narrative Performed At Protocol Name Regadenoson GE MUSE Time In Exercise Phase 00:01:00 Max. Systolic [...] Exercise Aldactone,Lasix Confirmed by fellow Desmond Vargas ([id number]) on 05/19/2018 3:24:59 PM Confirmed by MD UBALDO, AB ([id number]) on 05/23/2018 5:14:38 AM Procedure Note Interface, External Ris In - 05/23/2018 5:14 AM HOUSE SERVANT Protocol Name Regadenoson Time In Exercise Phase [...] AM Performing Organization Address City/State/Zipcode Phone Number [employer] MUSE * NM myocardial perfusion PET (rest and stress) (05/19/2018 2:44 PM HOUSE SERVANT) Narrative Performed At FINAL REPORT [facility] PROCEDURE: Rest/Stress MYOCARDIAL PERFUSION PET with regadenoson\\XA9\\ CPT CODE: 01621 INDICATION: Obesity, BMI=51, Preoperative evaluation for bariatric [...] stress.5. Normal extracardiac tracer distribution.6. No previous [facility] study for comparison. Signed: Kyra Dave MD Report Verified Date/Time:05/19/2018 16:05:56 Reading Location: [address] Reading Room Procedure Note Interface, External Ris In - 05/19/2018 4:08 PM HOUSE SERVANT FINAL REPORT PROCEDURE: Rest/Stress MYOCARDIAL PERFUSION PET with regadenoson\\XA9\\ CPT CODE: 66264 INDICATION: Obesity, BMI=51, Preoperative evaluation for bariatric [...] Normal extracardiac tracer distribution. 6. No previous [facility] study for comparison. Signed: Kyra Dave MD Report Verified Date/Time: 05/19/2018 16:05:56 Reading Location: [address] Reading Room Performing Organization Address City/State/Zipcode Phone Number GE RIS * ECHOCARDIOGRAM REPORT - SCAN (05/12/2018 1:50 PM HOUSE SERVANT) Narrative Performed At * 2D Echo W/Doppler(CW/PW/Color) (05/12/2018 11:41 AM HOUSE SERVANT) Ejection Fraction [facility] ECHO HEART[facility] MKCKReedsyON [facility] Narrative Performed At Transthoracic Echocardiography Report (TTE) [facility] ECHO HEARTLAB Demographics [facility] Patient NameCANPILY GARCIA Date of Study05/12/2018 [place] Female Visit [id number] Unknown Room NumberOP Number Date of 1960Referring PhysicianSisidoro Key MD Age 57 year(s)SonographZack Christianson, RDCS Warehouse Traffic Supervisor Ector Daigle Interpreting Jose London Procedure Type [...] External Ris In - 05/12/2018 1:18 PM HOUSE SERVANT Transthoracic Echocardiography Report (TTE) Demographics Patient Name PILY GRIGSBY Date of Study 05/12/2018 Gender Female Visit Number [id number] Race Unknown Room Number OP Number Date of 1960 Referring Physician Star Key MD Age 57 year(s) Research Agricultural Engineer Kojo Christianson [facility] Warehouse Traffic Supervisor Ector Daigle Interpreting Physician PRABHA London Procedure [...] LVOT CI: 3.9 l/min/m^2 Performing Organization Address City/State/Zipcode Phone Number [facility] ECHO HEARTLAB MKCKESSON CPACS * Alpha fetoprotein (AFP), tumor marker (05/01/2018 12:36 PM HOUSE SERVANT) Only the most recent of 2 results within the time period is included. Alpha-Fetoprotein 7.9 <10.0 ng/mL [facility] Specimen Blood Performing Organization Address City/[facility] Mex[facility]ocode Phone Number [address] [address] [facility] * Pro-time/INR (05/01/2018 12:36 PM HOUSE SERVANT) Only the most recent of 6 results within the time period is included. Protime 16.2 (H) 11.7 - 14.7 seconds [facility] INR 1.3 <=5.9 [facility] Specimen Blood Narrative Performed At RECOMMENDED COUMADIN/WARFARIN INR THERAPY RANGES [facility] STANDARD DOSE: 2.0 - 3.0 Includes: PROPHYLAXIS for venous thrombosis, [facility] systemic embolization; TREATMENT for venous thrombosis and/or pulmonary embolus. HIGH RISK: Target INR is 2.5-3.5 for patients with mechanical heart valves. Performing Organization Address [facility] Mex[facility]j Phone Number [address] [address] [phone] [place] [address] * Hepatic function panel (05/01/2018 12:36 PM HOUSE SERVANT) Only the most recent of 5 results within the time period is included. Protein, Total 7.3 6.0 - 8.3 gm/dL [facility] Albumin 3.2 (L) 3.5 - 5.0 g/dL [facility] Total Bilirubin 1.9 (H) 0.2 - 1.2 mg/dL [facility] Bilirubin, Direct 1.1 (H) 0.1 - 0.5 mg/dL [facility] Alkaline Phosphatase 191 (H) 40 - 150 U/L [facility] AST 30 5 - 34 U/L [facility] ALT 22 6 - 55 U/L [facility] Specimen Blood Performing Organization Address City/[facility]/Zipcode Phone Number [place] [phone] [place] [address] [facility] * Basic Metabolic Panel (05/01/2018 12:36 PM HOUSE SERVANT) Only the most recent of 5 results within the time period is included. Sodium 139 136 - 145 meq/L [facility] Potassium 3.8 3.5 - 5.1 meq/L [facility] Chloride 104 98 - 107 meq/L [facility] CO2 31 (H) 22 - 29 meq/L [facility] BUN 34 (H) 7 - 21 mg/dL [facility] Creatinine 1.57 (H) 0.57 - 1.25 mg/dL [facility] Glucose 51 (L) 70 - 105 mg/dL [facility] Calcium 9.4 8.4 - 10.2 mg/dL [facility] EGFR 34Comment: ESTIMATED GFR IS mL/min/1.73 sq m [facility] NOT ACCURATE CREATININE [facility] CLEARANCE IN PREDICTING GLOMERULAR FILTRATION RATE. ESTIMATED GFR IS NOT APPLICABLE FOR DIALYSIS PATIENTS. Specimen Blood Performing Organization Address City/State/Zipcode Phone Number [facility] [address] [place] [address] [facility] * CBC with platelet count + automated diff (05/01/2018 12:35 PM HOUSE SERVANT) Only the most recent of 6 results within the time period is included. WBC 6.5 3.5 - 10.5 K/L [facility] RBC 3.56 (L) 3.93 - 5.22 M/L [facility] Hemoglobin 12.0 11.2 - 15.7 GM/DL [facility] Hematocrit 36.2 34.1 - 44.9 % [facility] MCV 101.7 (H) 79.4 - 94.8 fL [facility] MCH 33.7 (H) 25.6 - 32.2 pg [facility] MCHC 33.1 32.2 - 35.5 GM/DL [facility] RDW 14.8 (H) 11.7 - 14.4 % [facility] Platelets 116 (L) 150 - 450 K/CU MM [facility] MPV 10.7 9.4 - 12.3 fL [facility] nRBC 0 0 - 0 /100 WBC [facility] % Neutros 58 % [facility] % Lymphs 25 % [facility] % Monos 15 % [facility] % Eos 2 % [facility] % Baso 0 % [facility] # Neutros 3.76 1.56 - 6.13 K/L [facility] # Lymphs 1.64 1.18 - 3.74 K/L [facility] # Monos 0.95 (H) 0.24 - 0.36 K/L [facility] # Eos 0.15 0.04 - 0.36 K/L [facility] # Baso 0.02 0.01 - 0.08 K/L [facility] Immature 0 0 - 1 % [facility] Granulocytes-Relative [facility] Specimen Blood Performing Organization Address City/State/Zipcode Phone Number [facility] [address] [place] [address] [facility] * TRANSFUSION SERVICE REPORT - SCAN (03/13/2018 5:53 PM HOUSE SERVANT) Narrative Performed At * XR mandible 4 views min (03/12/2018 11:01 AM HOUSE SERVANT) Narrative Performed At FINAL REPORT [facility] TECHNIQUE: Mandible four views minimal. INDICATION: Nonalcoholic [...] MD Report Verified Date/Time:03/12/2018 13:39:02 Reading Location: [address] Radiology Reading Room Procedure Note Interface, External Ris In - 03/12/2018 1:41 PM HOUSE SERVANT FINAL REPORT TECHNIQUE: Mandible four views minimal. [...] Report Verified Date/Time: 03/12/2018 13:39:02 Reading Location: [address] Radiology Reading Room Performing Organization Address City/State/Zipcode Phone Number [employer] RIS * XR chest 2 views (03/12/2018 11:00 AM HOUSE SERVANT) Narrative Performed At Addendum Begins [facility] RIS REPORT STATUS:A The patchy opacity over the left base was compared to a CT of the abdomen and pelvis from 10/24/2016. This patchy opacity is most likely an area of scar/atelectasis in the lingula seen on arterial phase image 4. Signed: Clark Perales MD Report Verified Date/Time:03/12/2018 13:40:40 Reading Location: [address] Radiology Reading Room Addendum Ends FINAL [...] MD Report Verified Date/Time:03/12/2018 13:29:47 Reading Location: [address] Radiology Reading Room Procedure Note Interface, External Ris In - 03/12/2018 1:42 PM HOUSE SERVANT Addendum Begins REPORT STATUS:A The patchy opacity over the left base was compared to a CT of the abdomen and pelvis from 10/24/2016. This patchy opacity is most likely an area of scar/atelectasis in the lingula seen on arterial phase image 4. Signed: Clark Perales MD Report Verified Date/Time: 03/12/2018 13:40:40 Reading Location: [address] Radiology Reading Room Addendum Ends FINAL [...] weeks. Signed: Clark Perales MD Report Verified Date/Time: 03/12/2018 13:29:47 Reading Location: [address] Radiology Reading Room Performing Organization Address City/State/Zipcode Phone Number GE RIS * XR dxa bone density study (03/12/2018 10:59 AM HOUSE SERVANT) Narrative Performed At FINAL REPORT [facility] Bone mineral density study 03/12/2018. HISTORY PROVIDED: [...] MD Report Verified Date/Time:03/12/2018 13:09:05 [place] [facility] [facility] [place] Procedure Note Interface, External Ris In - 03/12/2018 1:11 PM HOUSE SERVANT FINAL REPORT Bone mineral density study 03/12/2018. [...] Report Verified Date/Time: 03/12/2018 13:09:05 Reading Location: [facility] Mammo Reading Room Performing Organization Address City/State/Zipcode Phone Number GE RIS * Phosphorus (03/12/2018 9:53 AM HOUSE SERVANT) Phosphorus 3.0 2.3 - 4.7 mg/dL [facility] Specimen Blood Performing Organization Address City/[facility]/Zipcode Phone Number [facility] [address] [place] [address] [facility] * Magnesium (03/12/2018 9:53 AM HOUSE SERVANT) Magnesium 1.4 (L) 1.6 - 2.6 mg/dL [facility] Specimen Blood Performing Organization Address City/[facility]/Zipcode Phone Number [address] [address] [phone] * Gamma Glutamyl Transferase (GGT) (03/12/2018 9:53 AM HOUSE SERVANT) GGT 73 (H) 9 - 64 U/L [facility] Specimen Blood Performing Organization Address City/[facility] Mex[facility]ode Phone Number [place] [phone] * Bilirubin, direct (03/12/2018 9:53 AM HOUSE SERVANT) Bilirubin, Direct 1.0 (H) 0.1 - 0.5 mg/dL [facility] Specimen Blood Performing Organization Address [facility] Phone Number [place] [phone] [place] [address] * Comprehensive metabolic panel (03/12/2018 9:53 AM HOUSE SERVANT) Only the most recent of 2 results within the time period is included. Protein, Total 7.2 6.0 - 8.3 gm/dL [facility] Albumin 2.8 (L) 3.5 - 5.0 g/dL [facility] Alkaline Phosphatase 149 40 - 150 U/L [facility] Total Bilirubin 1.6 (H) 0.2 - 1.2 mg/dL [facility] Sodium 136 136 - 145 meq/L [facility] Potassium 4.5 3.5 - 5.1 meq/L [facility] Chloride 103 98 - 107 meq/L [facility] CO2 27 22 - 29 meq/L [facility] BUN 39 (H) 7 - 21 mg/dL [facility] Creatinine 1.49 (H) 0.57 - 1.25 mg/dL [facility] Glucose 113 (H) 70 - 105 mg/dL [facility] Calcium 9.0 8.4 - 10.2 mg/dL [facility] AST 31 5 - 34 U/L [facility] ALT 16 6 - 55 U/L [facility] EGFR 36Comment: ESTIMATED GFR IS mL/min/1.73 sq m [facility] NOT ACCURATE CREATININE [facility] CLEARANCE IN PREDICTING GLOMERULAR FILTRATION RATE. ESTIMATED GFR IS NOT APPLICABLE FOR DIALYSIS PATIENTS. Specimen Blood Performing Organization Address [facility] Phone Number [address] * Iron, TIBC, % sat. (without ferritin) (03/12/2018 9:41 AM HOUSE SERVANT) Iron 77 40 - 160 ug/dL [facility] TIBC 200 (L) 250 - 450 ug/dL [facility] Iron % Saturation 39 20 - 55 % [facility] Specimen Blood Performing Organization Address [facility] Phone Number [address] * Vitamin D, 25-Hydroxy (03/12/2018 9:41 AM HOUSE SERVANT) Vitamin D 25-Hydroxy 14.0 6.6 - 49.9 ng/mL [facility] Specimen Blood Narrative Performed At Effective 02/06/2017: Reference Range Change [facility] New: 6.6-49.9 ng/mL Previous: 13.0-47.8 ng/mL [facility] Recommended Vitamin D Target Range: 30.0-40.0 ng/mL Performing Organization Address [facility] Phone Number [address] [address] [phone] * Transferrin (03/12/2018 9:41 AM HOUSE SERVANT) Transferrin 160 (L) 174 - 382 mg/dL [facility] Specimen Blood Performing Organization Address [facility] Phone Number [address] * Ferritin (03/12/2018 9:41 AM HOUSE SERVANT) Ferritin 731 (H) 5 - 275 ng/mL [facility] Specimen Blood Performing Organization Address [facility] Phone Number [address] * Calcium, Ionized (03/12/2018 9:04 AM HOUSE SERVANT) Calcium, Ion 1.07 (L) 1.12 - 1.27 mmol/L [facility] pH, Blood 7.34 [facility] Specimen Blood Performing Organization Address [facility] Phone Number [address] * Drug screen, urine, transplant (03/12/2018 8:51 AM HOUSE SERVANT) Specimen Urine Narrative Performed At Performing Organization Address [facility] Phone Number [address] [phone] * aPTT (03/12/2018 8:47 AM HOUSE SERVANT) PTT 37.4 (H) 22.5 - 36.0 seconds [facility] Specimen Blood Performing Organization Address [facility] Phone Number [address] * Fibrinogen (03/12/2018 8:47 AM HOUSE SERVANT) Fibrinogen 390 225 - 434 mg/dl [facility] Specimen Blood Performing Organization Address [facility] Phone Number [address] * Type and screen, automated (03/12/2018 7:40 AM HOUSE SERVANT) ABO/RH AUTOMATED ([place]) A POSITIVE [facility] Ab Scrn NEGATIVE [facility] Specimen Blood Performing Organization Address [facility] Phone Number [address] [address] [facility] * T Spot TB (03/12/2018 7:40 AM HOUSE SERVANT) T-Spot TB Negative [facility] Neg Ctrl Spot Count 0 [facility] Panel A Spot 0 [facility] Panel B Spot 0 [facility] Pos Ctrl Spot Ct 0 [facility] Scan Result [facility] Specimen Blood Narrative Performed At Performing Organization Address [facility] Phone Number [facility] [address] [place] [address] LABORATORIES 100 * HIV-1 Antigen with HIV-1/2 Antibody (03/12/2018 7:40 AM HOUSE SERVANT) HIV-1 Antigen with HIV NON-REACTIVE Nonreactive [facility] 1&2 Antibody [facility] Specimen Blood Performing Organization Address [facility] Phone Number [address] [address] [facility] * Cytomegalovirus antibody, IgM (03/12/2018 7:40 AM HOUSE SERVANT) CMV IGM Negative Negative, Equivocal [facility] Specimen Blood Narrative Performed At CMV IgM Result Interpretation: [facility] </=0.8 Al Negative [facility] 0.9-1.0 Al Equivocal >/=1.1 Al Positive Performing Organization Address City/[facility]/Zipcode Phone Number [address] [address] [facility] * Hepatitis A antibody, IgM (03/12/2018 7:40 AM HOUSE SERVANT) Hep A IgM HEPATITIS A TEST NEGATIVE Nonreactive [facility] Specimen Blood Performing Organization Address [facility]/Zipcode Phone Number [address] [address] [facility] * Carbohydrate antigen 19-9 (CA 19-9) (03/12/2018 7:40 AM HOUSE SERVANT) CA 19-9 23 <34 U/mL [facility] Comment: INCORPORATED This test was performed using the Siemens (Cinecore) Chemiluminescent method. Values obtained from different assay methods cannot be used interchangeably. CA19-9 levels, regardless of value, should not be interpreted as absolute evidence of the presence or absence of disease. Specimen Blood Narrative Performed At Performing Lab [facility] [id number] [place] [address] Helen Shahid MD, PhD, AMBER Performing Organization Address [facility] Phone Number [facility], [address] [facility] [address] * Zinc (03/12/2018 7:40 AM HOUSE SERVANT) Zinc 49 (L) 60 - 130 mcg/dL [facility] Comment: INCORPORATED This test was developed and its analytical performance characteristics have been determined by [facility]. It has not been cleared or approved by the US Food and Drug Administration. This assay has been validated pursuant to the CLIA regulations and is used for clinical purposes. Specimen Blood Narrative Performed At Performing Lab [facility] *SPL [facility] [employer] [facility], [address] [place] [address] Bhakti Colvin MD, PhD Performing Organization Address [facility] Phone Number [facility], [address] [facility] [address] * Hepatitis B core antibody, IgM (03/12/2018 7:40 AM HOUSE SERVANT) Hep B C IgM NON-REACTIVE Nonreactive [facility] Specimen Blood Performing Organization Address City/[facility]/Zipcode Phone Number [facility] [address] [place] [address] [facility] * EBV-VCA antibody, IgM (03/12/2018 7:40 AM HOUSE SERVANT) HERLINDA ENCARNACION VIRAL CAPSID Negative Negative, Equivocal [facility] ANTIGEN IGM [facility] Specimen Blood Narrative Performed At Herlinda Encarnacion Viral Capsid Antigen IgM Result Interpretation: [facility] </=0.8 Al Negative [facility] 0.9-1.0 Al Equivocal >/=1.1 Al Positive Performing Organization Address City/[facility]/Zipcode Phone Number [address] * EBV-VCA antibody, IgG (03/12/2018 7:40 AM HOUSE SERVANT) HERLINDA ENCARNACION VIRAL CAPSID Positive (A) Negative, Equivocal [facility] ANTIGEN IGG [facility] Specimen Blood Narrative Performed At Herlinda Encarnacion Viral Capsid Antigen IgG Result Interpretation: [facility] </=0.8 Al Negative [facility] 0.9-1.0 Al Equivocal >/=1.1 Al Positive Performing Organization Address [facility] Phone Number [address] * Screen, urine (03/12/2018 7:40 AM HOUSE SERVANT) Preg Test, Ur Negative [facility] Specimen Urine Performing Organization Address [facility] Phone Number [address] * RPR (03/12/2018 7:40 AM HOUSE SERVANT) RPR Nonreactive Nonreactive [facility] Specimen Blood Performing Organization Address [facility] Phone Number [address] * Hepatitis B surface antigen (03/12/2018 7:40 AM HOUSE SERVANT) hepatitis B Surface Ag NON-REACTIVE Nonreactive [facility] Specimen Blood Performing Organization Address [facility] Phone Number [address] * Cytomegalovirus antibody, IgG (03/12/2018 7:40 AM HOUSE SERVANT) CYTOMEGALOVIRUS, IGG Positive (A) Negative, Equivocal [facility] Specimen Blood Narrative Performed At CMV IgG Result Interpretation: [facility] </=0.8 Al Negative [facility] 0.9-1.0 Al Equivocal >/=1.1 AlPositive Performing Organization Address City/[facility]/Zipcode Phone Number [facility] [address] [place] [address] [facility] * Urinalysis w/Microscopic (03/12/2018 7:40 AM HOUSE SERVANT) Color, UA Light Yellow [facility] Clarity, UA Clear [facility] Specific Vul[place], UA 1.006 1.001 - 1.035 [facility] pH, UA 6.0 5.0 - 8.0 [facility] Protein, UA Negative Negative [facility] Glucose, UA Negative Negative [facility] Ketones, UA Negative Negative [facility] Bilirubin, UA Negative Negative [facility] Blood, UA Negative Negative [facility] Nitrite, UA Negative Negative [facility] Leukocytes, UA Negative Negative [facility] Urobilinogen, UA 0.2 0.2 - 1.0 mg/dL [facility] RBC, UA <1 /HPF [facility] WBC, UA 2 /HPF [facility] Bacteria, UA Rare [facility] Mucus Rare [facility] Squam Epithel, UA 1 /HPF [facility] Hyaline Casts, UA 5 /LPF [facility] Specimen Source [facility] Specimen Urine Performing Organization Address City/State/Zipcode Phone Number [facility] [address] [place] [address] [facility] * Uric acid (03/12/2018 7:40 AM HOUSE SERVANT) Uric Acid 12.2 (H) 2.6 - 7.2 mg/dL [facility] Specimen Blood Performing Organization Address [facility] [place] [address] [phone] [place] [address] * T3 (03/12/2018 7:40 AM HOUSE SERVANT) T3, Total 84 48 - 159 ng/dL [facility] Specimen Blood Performing Organization Address [facility]/[place] [address] [phone] [place] [address] * TSH (03/12/2018 7:40 AM HOUSE SERVANT) TSH 1.34 0.35 - 4.94 uIU/mL [facility] Specimen Blood Performing Organization Address [facility] Phone Number [place] [phone] [place] [address] * T4 (03/12/2018 7:40 AM HOUSE SERVANT) T4, Total 5.3 4.9 - 11.7 ug/dL [facility] Specimen Blood Performing Organization Address [facility] Phone Number [address] [address] [facility] * Hemoglobin A1c (03/12/2018 7:40 AM HOUSE SERVANT) Hemoglobin A1C 5.1 4.3 - 6.1 % [facility] Specimen Blood Performing Organization Address City/State/Zipcode Phone Number [address] [address] [facility] * Carcinoembryonic Antigen (CEA) (03/12/2018 7:40 AM HOUSE SERVANT) CEA, SERUM 16.7 (H) 0.0 - 5.0 ng/mL [facility] Specimen Blood Performing Organization Address [facility]/Zipcode Phone Number [address] [address] [facility] * Ethanol (03/12/2018 7:40 AM HOUSE SERVANT) Ethanol Lvl <10 <=10 mg/dL [facility] Specimen Blood Performing Organization Address [facility] Phone Number [facility] [address] [place] [address] [facility] * Lipid panel (03/12/2018 7:40 AM HOUSE SERVANT) Triglycerides 69 mg/dL [facility] Cholesterol 110 mg/dL [facility] HDL 38 mg/dL [facility] LDL Calculated 58 mg/dL [facility] Specimen Blood Narrative Performed At Triglyceride Reference Range: [facility] Low Risk <150 [facility] [id number] High Risk 200-499 Very High Risk>=500 Cholesterol Reference Range: Low Risk <200 [id number] High Risk>240 HDL Cholesterol Reference Range: Low Risk >=60 High Risk <40 LDL Cholesterol Reference Range: Optimal<100 Near [id number] Very High >=190 Performing Organization Address City/State/Zipcode Phone Number [facility] [address] [place] [address] [phone] [place] [address] * Blood gas, arterial (03/12/2018 7:26 AM HOUSE SERVANT) pH, Arterial 7.44 7.35 - 7.45 [facility] pCO2, Arterial 37 35 - 45 mmHg [facility] pO2, Arterial 92 (H) 80 - 90 mmHg [facility] O2 Sat, Arterial 97.3 (H) 96.0 - 97.0 % [facility] HCO3, Arterial 24 21 - 29 mmol/L [facility] Base Excess, Arterial 0.5 -2.0 - 3.0 mmol/L [facility] Patient Temperature 37.0 C [facility] FIO2 21.0 % [facility] Specimen Blood, Arterial - Arm, Left Performing Organization Address [facility] Phone Number [address] [address] [facility] * Blood culture (03/04/2018 4:30 PM HOUSE SERVANT) Only the most recent of 2 results within the time period is included. Result No growth in 5 days [facility] Specimen Blood Performing Organization Address [facility] Phone Number [address] [address] [facility] * Creatine Kinase (CK) (03/04/2018 4:23 PM HOUSE SERVANT) Only the most recent of 2 results within the time period is included. Total CK 109 29 - 200 U/L [facility] Specimen Blood Performing Organization Address [facility] Phone Number [address] [address] [facility] * MR abdomen without & with IV contrast (11/19/2017 12:40 PM CDT) Narrative Performed At FINAL REPORT Lagiar TECHNIQUE: MRI of the abdomen WITHOUT and [...] MD Report Verified Date/Time:11/19/2017 16:09:13 Reading Location: [facility] B1 C013Y CT Body Reading Room Procedure Note [...] Report Verified Date/Time: 11/19/2017 16:09:13 Reading Location: [facility] C013Y CT Body Reading Room Performing Organization Address City/State/Zipcode Phone Number [facility] * CBC with platelet count + [...] Blood Narrative Performed At [facility]formed at: [facility] [address] [place], [id number] Front Tender: Harinder Heck MD, Phone:[phone] Performing Organization Address City/State/Zipcode Phone Number [facility] 1 after 07/12/2017 Insurance Payer Benefit Subscriber ID Type Phone Address Plan / Group MEDICAID - MEDICAID MGD ZHANNA xxxxxxxxx Medicaid CARE COMM STAR Contracted PLAN [facility] xxxxxxxxx MEDICARE MGD CARE MEDICARE [facility] [place] [employer] xxxxxxxxx Transplant MEDICARE MGD CARE [facility] ONLY [facility] REPL
[2018-07-13] MEDS ORDERED: SODIUM CHLORIDE 0.9% 1000ML 2,000 ML ONE (16:17)
[2018-07-13] MEDS ORDERED: SODIUM CHLORIDE 0.9% 1000ML 1,000 ML IV ONE ×3 (16:45→20:30)
[2018-07-13] MEDS ORDERED: ACETAMINOPHEN 1000 MG/100 ML IV ONE (17:00)
[2018-07-13 17:03] LABS: BASOPHILS % 0.3 % (0.0-1.0); EOSINOPHILS # (AUTO) 0.1 (0.0-0.4); EOSINOPHILS % 0.4 % (0.0-6.0); HEMATOCRIT 33.5 % (34.2-44.1); HEMOGLOBIN 11.1 g/dL (12.0-16.0); LYMPHOCYTES # (AUTO) 0.3 (1.0-3.2); MEAN CORPUSCULAR HEMOGLOBIN 34.9 pg (28-32); MEAN CORPUSCULAR HGB CONC 33.1 g/dL (31-35); MEAN CORPUSCULAR VOLUME 105.3 fL (81-99); MONOCYTES # (AUTO) 0.9 (0.2-0.8); NEUTROPHILS # (AUTO) 9.9 (2.1-6.9); NEUTROPHILS % 87.3 % (38.7-80.0); PLATELET COUNT 96 x10e3/uL (140-360); RED BLOOD COUNT 3.18 x10e6/uL (3.6-5.1); RED CELL DISTRIBUTION WIDTH 14.3 % (11.7-14.4)
--- NOTE | 2018-07-13 17:15 | Diagnostic Imaging Report ---
EXAMINATION: CHEST SINGLE (PORTABLE) COMPARISON: Chest x-ray 02/12/2018 INDICATION: Altered level of consciousness, weakness, fever ^ERMD ORDER ^[id number] ^[id number] ^Y DISCUSSION: Frontal view of the chest obtained at 1654 hours. The patient is rotated. HEART AND MEDIASTINUM: The heart is enlarged LINES: None. LUNGS: Low lung volumes. Diffuse pulmonary vascular prominence. No interstitial thickening. PLEURA: No pleural effusion or pneumothorax. BONES AND SOFT TISSUES: No focal osseous lesion. The soft tissues are normal. IMPRESSION: Compromised study due to patient rotation. Cardiomegaly and pulmonary vascular congestion. Signed by: Dr. Armani Pitts MD on 07/13/2018 5:11 PM
[2018-07-13 17:33] LABS: ANION GAP 14.5 mmol/L (8-16); CALCIUM 8.5 mg/dL (8.4-10.2); CREATININE, SERUM 1.62 mg/dL (0.57-1.11); MAGNESIUM 1.7 MG/DL (1.3-2.1); POTASSIUM 4.5 mmol/L (3.5-5.1)
[2018-07-13 17:36] LABS: INFLUENZAE A&B ANTIGEN (RAPID) NEGATIVE (NEGATIVE)
[2018-07-13 17:39] LABS: CREATINE KINASE MB 1.3 ng/mL (0-5.0)
[2018-07-13 18:08] LABS: CLARITY,URINE CLEAR (CLEAR); COLOR,URINE YELLOW (YELLOW)
[2018-07-13 18:10] LABS: BILIRUBIN,URINE NEGATIVE (NEGATIVE); KETONES,URINE NEGATIVE (NEGATIVE); LEUKOCYTE ESTERASE ,URINE NEGATIVE (NEGATIVE); NITRITE,URINE NEGATIVE (NEGATIVE); PROTEIN,URINE DIPSTICK NEGATIVE (NEGATIVE); URINE UROBILINOGEN 0.2 mg/dL (0.2 - 1)
[2018-07-13 18:13] LABS: BACTERIA,URINE FEW /HPF; EPITHELIAL CELLS,URINE FEW /LPF; RBC,URINE 0-5 /HPF (0-5); WBC,URINE (MAN) 0-5 /HPF (0-5)
[2018-07-13 18:13] LABS: STREPTOCOCCUS GRP A ANTIGEN NEGATIVE (NEGATIVE)
[2018-07-13 18:37] LABS: INR 1.28; PROTHROMBIN TIME 16.6 seconds (11.9-14.5)
[2018-07-13 18:38] LABS: PARTIAL THROMBOPLASTIN TIME 39.2 seconds (23.8-35.5)
[2018-07-13] MEDS ORDERED: VANCOMYCIN 1GM/NS 250 ML 250 ML IV ONE ×2 (18:45→20:15)
[2018-07-13 18:49] LABS: BILIRUBIN,DIRECT 1.1 mg/dL (0.0-0.5)
[2018-07-13] MEDS ORDERED: NOVOLOG MI100 UNIT/1 SC (18:49)
[2018-07-13] MEDS ORDERED: GLIMEPIRIDE2 MG PO (18:49)
[2018-07-13] MEDS ORDERED: LASIX40 MG PO (18:49)
[2018-07-13] MEDS: CEFEPIME 2 GM/NS 0.9% 100 ML 100 ML IV SCH (19:04)
--- NOTE | 2018-07-13 19:10 | NUR ---
REPORT GIVEN TO RAYMUNDO HOLLOWAY UNHAIRING MACHINE OPERATOR NURSE.
--- NOTE | 2018-07-13 19:40 | Diagnostic Imaging Report ---
History: Confused Comparison studies: None Technique: Axial images were obtained from the skull base to the vertex. Coronal and sagittal reconstructions obtained from the axial data. Dose modulation, iterative reconstruction, and/or weight based adjustment of the mA/kV was utilized to reduce the radiation dose to as low as reasonably achievable. Findings: Scalp/skull: No abnormalities. No fractures, blastic or lytic lesions. Extra-axial spaces: No masses. No fluid collections. Brain sulci: Appropriate for age. Ventricles: Normal in size and configuration. No hydrocephalus. Parenchyma: No abnormal densities. No masses, hemorrhage, acute or chronic cortical vascular insults. Sellar/suprasellar region: No abnormalities Craniocervical junction: Patent foramen magnum. No Chiari one malformation. IMPRESSION: No abnormalities in spite of artifacts Signed by: Dr. Duane Nova M.D. on 07/13/2018 7:37 PM
[2018-07-13] MEDS ORDERED: DEXTROSE 50% SYRINGE 50 ML IV PRN (20:30)
[2018-07-13] MEDS ORDERED: LACTULOSE SYRUP 20 GM/30 ML UDC PO PRN (20:30)
[2018-07-13] MEDS ORDERED: ACETAMINOPHEN 1000 MG/100 ML IV PRN (20:30)
[2018-07-13] MEDS ORDERED: ONDANSETRON HCL INJ 2MG/ML 2ML 2 MG/ML VIAL IV PRN (20:30)
--- OUTSIDE RECORDS SUMMARY | 2018-07-13 20:46 | XMS REPORT | Clinical Summary ---
Author Author [facility] Address Unknown Phone Unavailable Care Team Providers Care Slicing Machine Operator/Tender Name Role Phone Yarelis Paredes PCP Johnathon [...] is 54. She will meet with our public administration professor to create an appropriate diet plan and [...] pt mother, pt is currently inpatient at [facility] due to Elevated pneumonia. Liver txp eval [...] Taken Vital Sign Reading 05/19/2018 2:51 PM MEETING PLANNER Blood Pressure 104/56 05/19/2018 2:51 PM MEETING PLANNER Pulse 80 05/01/2018 10:39 AM MEETING PLANNER Temperature 36.3 C (97.4 F) 05/19/2018 2:51 PM MEETING PLANNER Respiratory Rate 14 05/19/2018 2:51 PM MEETING PLANNER Oxygen Saturation 99% 03/12/2018 7:20 AM MEETING PLANNER Inhaled Oxygen 21% Concentration 05/01/2018 10:39 AM MEETING PLANNER Weight 149.5 kg (329 lb 9.6 oz) 05/01/2018 10:39 AM MEETING PLANNER Height 171.5 cm (5' 7.52") 05/01/2018 10:39 AM MEETING PLANNER Body Mass Index 50.83 Plan of Treatment Care Team Description Date Type Specialty Resource, [facility] B 07/28/2018 Office Visit Hepatology Procedures Comments Procedure Name Priority Date/Time Associated Diagnosis CT ABDOMEN WITH/WITHOUT Routine 05/21/2018 Abnormal liver diagnostic CONTRAST 10:36 AM MEETING PLANNER imaging POCT-CREATININE Routine 05/21/2018 10:14 AM MEETING PLANNER TREADMILL Routine 05/19/2018 TOLERANCE(NON-NUCLEAR 2:44 PM MEETING PLANNER TREADMILL) NM CARDIAC PET PERFUSION Routine 05/19/2018 Pre-operative clearance REST AND/OR STRESS 2:44 PM MEETING PLANNER ECHOCARDIOGRAM REPORT - 05/12/2018 SCAN 1:50 PM MEETING PLANNER 2D ECHO W/ DOPPLER Routine 05/12/2018 Pre-operative (CW/PW/COLOR) 11:41 AM MEETING PLANNER cardiovascular examination Liver transplant candidate LVH (left ventricular hypertrophy) ALPHA FETOPROTEIN (AFP), Routine 05/01/2018 Screening for malignant TUMOR MARKER 12:36 PM MEETING PLANNER neoplasm PROTHROMBIN TIME/INR Routine 05/01/2018 Other cirrhosis of liver 12:36 PM MEETING PLANNER (HCC) HEPATIC FUNCTION PANEL Routine 05/01/2018 Other cirrhosis of liver 12:36 PM MEETING PLANNER (HCC) BASIC METABOLIC PANEL (7) Routine 05/01/2018 Other cirrhosis of liver 12:36 PM MEETING PLANNER (HCC) CBC W/PLT COUNT & AUTO Routine 05/01/2018 Other cirrhosis of liver DIFFERENTIAL 12:35 PM MEETING PLANNER (HCC) CBC W/PLT COUNT & AUTO Routine 05/01/2018 Other cirrhosis of liver DIFFERENTIAL 12:35 PM MEETING PLANNER (HCC) TRANSFUSION SERVICE 03/13/2018 REPORT - SCAN 5:53 PM MEETING PLANNER XR MANDIBLE MIN 4 VIEWS Routine 03/12/2018 Pre-transplant evaluation 11:01 AM MEETING PLANNER for liver transplant NAFLD (nonalcoholic fatty liver disease) XR CHEST 2 VIEWS Routine 03/12/2018 Pre-transplant evaluation 11:00 AM MEETING PLANNER for liver transplant NAFLD (nonalcoholic fatty liver disease) XR DXA BONE DENSITY STUDY Routine 03/12/2018 Pre-transplant evaluation 10:59 AM MEETING PLANNER for liver transplant NAFLD (nonalcoholic fatty liver disease) PHOSPHORUS Routine 03/12/2018 Pre-transplant evaluation 9:53 AM MEETING PLANNER for liver transplant NAFLD (nonalcoholic fatty liver disease) MAGNESIUM Routine 03/12/2018 Pre-transplant evaluation 9:53 AM MEETING PLANNER for liver transplant NAFLD (nonalcoholic fatty liver disease) GAMMA GLUTAMYL Routine 03/12/2018 Pre-transplant evaluation TRANSFERASE (GGT) 9:53 AM MEETING PLANNER for liver transplant NAFLD (nonalcoholic fatty liver disease) BILIRUBIN, DIRECT Routine 03/12/2018 Pre-transplant evaluation 9:53 AM MEETING PLANNER for liver transplant NAFLD (nonalcoholic fatty liver disease) COMPREHENSIVE METABOLIC Routine 03/12/2018 Pre-transplant evaluation PANEL 9:53 AM MEETING PLANNER for liver transplant NAFLD (nonalcoholic fatty liver disease) VITAMIN D, 25-HYDROXY Routine 03/12/2018 Pre-transplant evaluation 9:41 AM MEETING PLANNER for liver transplant NAFLD (nonalcoholic fatty liver disease) FERRITIN Routine 03/12/2018 Pre-transplant evaluation 9:41 AM MEETING PLANNER for liver transplant NAFLD (nonalcoholic fatty liver disease) IRON, TIBC, % SAT. Routine 03/12/2018 Pre-transplant evaluation (WITHOUT FERRITIN) 9:41 AM MEETING PLANNER for liver transplant NAFLD (nonalcoholic fatty liver disease) TRANSFERRIN Routine 03/12/2018 Pre-transplant evaluation 9:41 AM MEETING PLANNER for liver transplant NAFLD (nonalcoholic fatty liver disease) CALCIUM, IONIZED Routine 03/12/2018 Pre-transplant evaluation 9:04 AM MEETING PLANNER for liver transplant NAFLD (nonalcoholic fatty liver disease) DRUG SCREEN, URINE, Routine 03/12/2018 Pre-transplant evaluation TRANSPLANT 8:51 AM MEETING PLANNER for liver transplant NAFLD (nonalcoholic fatty liver disease) APTT Routine 03/12/2018 Pre-transplant evaluation 8:47 AM MEETING PLANNER for liver transplant NAFLD (nonalcoholic fatty liver disease) PROTHROMBIN TIME/INR Routine 03/12/2018 Pre-transplant evaluation 8:47 AM MEETING PLANNER for liver transplant NAFLD (nonalcoholic fatty liver disease) FIBRINOGEN Routine 03/12/2018 Pre-transplant evaluation 8:47 AM MEETING PLANNER for liver transplant NAFLD (nonalcoholic fatty liver disease) TYPE AND SCREEN, Routine 03/12/2018 Pre-transplant evaluation AUTOMATED 7:40 AM MEETING PLANNER for liver transplant NAFLD (nonalcoholic fatty liver disease) SCREEN, URINE Routine 03/12/2018 Pre-transplant evaluation 7:40 AM MEETING PLANNER for liver transplant NAFLD (nonalcoholic fatty liver disease) URINALYSIS W/ MICROSCOPIC Routine 03/12/2018 Pre-transplant evaluation 7:40 AM MEETING PLANNER for liver transplant NAFLD (nonalcoholic fatty liver disease) T SPOT TB Routine 03/12/2018 Pre-transplant evaluation 7:40 AM MEETING PLANNER for liver transplant NAFLD (nonalcoholic fatty liver disease) RPR Routine 03/12/2018 Pre-transplant evaluation 7:40 AM MEETING PLANNER for liver transplant NAFLD (nonalcoholic fatty liver disease) EBV ANTIBODY, IGM Routine 03/12/2018 Pre-transplant evaluation 7:40 AM MEETING PLANNER for liver transplant NAFLD (nonalcoholic fatty liver disease) EBV ANTIBODY, IGG Routine 03/12/2018 Pre-transplant evaluation 7:40 AM MEETING PLANNER for liver transplant NAFLD (nonalcoholic fatty liver disease) CYTOMEGALOVIRUS ANTIBODY, Routine 03/12/2018 Pre-transplant evaluation IGM 7:40 AM MEETING PLANNER for liver transplant NAFLD (nonalcoholic fatty liver disease) CYTOMEGALOVIRUS ANTIBODY, Routine 03/12/2018 Pre-transplant evaluation IGG 7:40 AM MEETING PLANNER for liver transplant NAFLD (nonalcoholic fatty liver disease) HIV-1 ANTIGEN WITH Routine 03/12/2018 Pre-transplant evaluation HIV-1/2 ANTIBODY 7:40 AM MEETING PLANNER for liver transplant NAFLD (nonalcoholic fatty liver disease) HEPATITIS B CORE Routine 03/12/2018 Pre-transplant evaluation ANTIBODY, IGM 7:40 AM MEETING PLANNER for liver transplant NAFLD (nonalcoholic fatty liver disease) HEPATITIS B SURFACE Routine 03/12/2018 Pre-transplant evaluation ANTIGEN 7:40 AM MEETING PLANNER for liver transplant NAFLD (nonalcoholic fatty liver disease) HEPATITIS A ANTIBODY, IGM Routine 03/12/2018 Pre-transplant evaluation 7:40 AM MEETING PLANNER for liver transplant NAFLD (nonalcoholic fatty liver disease) T4 Routine 03/12/2018 Pre-transplant evaluation 7:40 AM MEETING PLANNER for liver transplant NAFLD (nonalcoholic fatty liver disease) T3 AP Routine 03/12/2018 Pre-transplant evaluation 7:40 AM MEETING PLANNER for liver transplant NAFLD (nonalcoholic fatty liver disease) TSH Routine 03/12/2018 Pre-transplant evaluation 7:40 AM MEETING PLANNER for liver transplant NAFLD (nonalcoholic fatty liver disease) URIC ACID Routine 03/12/2018 Pre-transplant evaluation 7:40 AM MEETING PLANNER for liver transplant NAFLD (nonalcoholic fatty liver disease) ZINC Routine 03/12/2018 Pre-transplant evaluation 7:40 AM MEETING PLANNER for liver transplant NAFLD (nonalcoholic fatty liver disease) CARCINOEMBRYONIC ANTIGEN Routine 03/12/2018 Pre-transplant evaluation (CEA) 7:40 AM MEETING PLANNER for liver transplant NAFLD (nonalcoholic fatty liver disease) CARBOHYDRATE ANTIGEN 19-9 Routine 03/12/2018 Pre-transplant evaluation (CA 19-9) 7:40 AM MEETING PLANNER for liver transplant NAFLD (nonalcoholic fatty liver disease) ETHANOL Routine 03/12/2018 Pre-transplant evaluation 7:40 AM MEETING PLANNER for liver transplant NAFLD (nonalcoholic fatty liver disease) HEMOGLOBIN A1C Routine 03/12/2018 Pre-transplant evaluation 7:40 AM MEETING PLANNER for liver transplant NAFLD (nonalcoholic fatty liver disease) LIPID PANEL Routine 03/12/2018 Pre-transplant evaluation 7:40 AM MEETING PLANNER for liver transplant NAFLD (nonalcoholic fatty liver disease) CBC W/PLT COUNT & AUTO Routine 03/12/2018 Pre-transplant evaluation DIFFERENTIAL 7:37 AM MEETING PLANNER for liver transplant NAFLD (nonalcoholic fatty liver disease) CBC W/PLT COUNT & AUTO Routine 03/12/2018 Pre-transplant evaluation DIFFERENTIAL 7:37 AM MEETING PLANNER for liver transplant NAFLD (nonalcoholic fatty liver disease) BLOOD GAS, ARTERIAL Routine 03/12/2018 Pre-transplant evaluation 7:26 AM MEETING PLANNER for liver transplant NAFLD (nonalcoholic fatty liver disease) BLOOD CULTURE Routine 03/04/2018 Urinary tract infection 4:30 PM MEETING PLANNER without hematuria, site unspecified CBC W/PLT COUNT & AUTO Routine 03/04/2018 Other cirrhosis of liver DIFFERENTIAL 4:23 PM MEETING PLANNER (HCC) CREATINE KINASE (CK) Routine 03/04/2018 Elevated CK 4:23 PM MEETING PLANNER PROTHROMBIN TIME/INR Routine 03/04/2018 Other cirrhosis of liver 4:23 PM MEETING PLANNER (HCC) CBC W/PLT COUNT & AUTO Routine 03/04/2018 Other cirrhosis of liver DIFFERENTIAL 4:23 PM MEETING PLANNER (HCC) HEPATIC FUNCTION PANEL Routine 03/04/2018 Other cirrhosis of liver 4:23 PM MEETING PLANNER (HCC) BASIC METABOLIC PANEL (7) Routine 03/04/2018 Other cirrhosis of liver 4:23 PM MEETING PLANNER (HCC) BLOOD CULTURE Routine 03/04/2018 Urinary tract infection 4:23 PM MEETING PLANNER without hematuria, site unspecified CBC W/PLT COUNT [...] CT abdomen with/without contrast (05/21/2018 10:36 AM MEETING PLANNER) Narrative Performed At FINAL REPORT [employer] [facility] ABDOMINAL CT DATED 05/21/2018 COMPARISON: October 24, [...] MD Report Verified Date/Time:05/21/2018 14:37:35 Reading Location: [facility] B1 C013Y CT Body Reading Room Procedure Note Interface, External Ris In - 05/21/2018 2:39 PM MEETING PLANNER FINAL REPORT ABDOMINAL CT DATED 05/21/2018 COMPARISON: [...] Report Verified Date/Time: 05/21/2018 14:37:35 Reading Location: [facility] B1 C013Y CT Body Reading Room Performing Organization Address City/State/Zipcode Phone Number GE RIS * POC-Creatinine (05/21/2018 10:14 AM MEETING PLANNER) POC-Creatinine 1.4 (H)Comment: TESTED AT 0.6 - 1.3 mg/dL [facility] [id number] [facility] [address] POC-EGFR 39 mL/min/1.73M2 [facility] Specimen Blood Narrative Performed At Performing Organization Address City/[facility] Phone Number [facility] [address] [place] [id number] [facility] * Treadmill tolerance(Non-Nuclear Treadmill) (05/19/2018 2:44 PM MEETING PLANNER) Narrative Performed At Protocol Name Regadenoson GE [...] Exercise Aldactone,Lasix Confirmed by fellow Desmond Vargas ([id number]) on 05/19/2018 3:24:59 PM Confirmed by MD UBALDO, AB ([id number]) on 05/23/2018 5:14:38 AM Procedure Note Interface, External Ris In - 05/23/2018 5:14 AM MEETING PLANNER Protocol Name Regadenoson Time In Exercise Phase [...] AM Performing Organization Address City/State/Zipcode Phone Number [employer] MUSE * NM myocardial perfusion PET (rest and stress) (05/19/2018 2:44 PM MEETING PLANNER) Narrative Performed At FINAL REPORT [employer] PROCEDURE: Rest/Stress MYOCARDIAL PERFUSION PET with regadenoson\\XA9\\ CPT CODE: 17448 INDICATION: Obesity, BMI=51, Preoperative evaluation for bariatric [...] stress.5. Normal extracardiac tracer distribution.6. No previous [facility] study for comparison. Signed: Kyra Dave MD Report Verified Date/Time:05/19/2018 16:05:56 Reading Location: [address] Reading Room Procedure Note Interface, External Ris In - 05/19/2018 4:08 PM MEETING PLANNER FINAL REPORT PROCEDURE: Rest/Stress MYOCARDIAL PERFUSION PET with regadenoson\\XA9\\ CPT CODE: 34414 INDICATION: Obesity, BMI=51, Preoperative evaluation for bariatric [...] Normal extracardiac tracer distribution. 6. No previous [facility] study for comparison. Signed: Kyra Dave MD Report Verified Date/Time: 05/19/2018 16:05:56 Reading Location: [address] Reading Room Performing Organization Address City/State/Zipcode Phone Number GE RIS * ECHOCARDIOGRAM REPORT - SCAN (05/12/2018 1:50 PM MEETING PLANNER) Narrative Performed At * 2D Echo W/Doppler(CW/PW/Color) (05/12/2018 11:41 AM MEETING PLANNER) Ejection Fraction [facility] Narrative Performed At Transthoracic Echocardiography Report (TTE) [facility] Demographics [facility] Patient NameCANPILY GARCIA Date of Study05/12/2018 [place] Female Visit [id number] Unknown Room NumberOP Number Date of 1960Referring PhysicianSisidoro Key MD Age 57 year(s)SonographZack Christianson, RDCS Steam Powerplant Supervisor Ector Daigle Interpreting Jose London Procedure [...] External Ris In - 05/12/2018 1:18 PM MEETING PLANNER Transthoracic Echocardiography Report (TTE) Demographics Patient Name PILY GRIGSBY Date of Study 05/12/2018 Gender Female Visit Number [id number] Race Unknown Room Number OP Number Date of 1960 Referring Physician Star Key MD Age 57 year(s) Chemical Processing Technician Kojo Christianson [facility] Steam Powerplant Supervisor Ector Daigle Interpreting Physician PRABHA London [...] fetoprotein (AFP), tumor marker (05/01/2018 12:36 PM MEETING PLANNER) Only the most recent of 2 results within the time period is included. Alpha-Fetoprotein 7.9 <10.0 ng/mL [facility] Specimen Blood Performing Organization Address City/[facility] Centercode Phone Number [address] [address] [facility] * Pro-time/INR (05/01/2018 12:36 PM MEETING PLANNER) Only the most recent of 6 results within the time period is included. Protime 16.2 (H) 11.7 - 14.7 seconds [facility] INR 1.3 <=5.9 [facility] Specimen Blood Narrative Performed At RECOMMENDED COUMADIN/WARFARIN INR THERAPY RANGES [facility] STANDARD DOSE: 2.0 - 3.0 Includes: PROPHYLAXIS for venous thrombosis, [facility] systemic embolization; TREATMENT for venous thrombosis and/or pulmonary embolus. HIGH RISK: Target INR is 2.5-3.5 for patients with mechanical heart valves. Performing Organization Address [facility] Centercowv Phone Number [address] [address] [phone] [place] [address] * Hepatic function panel (05/01/2018 12:36 PM MEETING PLANNER) Only the most recent of 5 results within the time period is included. Protein, Total 7.3 6.0 - 8.3 gm/dL [facility] Albumin 3.2 (L) 3.5 - 5.0 g/dL [facility] Total Bilirubin 1.9 (H) 0.2 - 1.2 mg/dL [facility] Bilirubin, Direct 1.1 (H) 0.1 - 0.5 mg/dL [facility] Alkaline Phosphatase 191 (H) 40 - 150 U/L [facility] AST 30 5 - 34 U/L [facility] ALT 22 6 - 55 U/L [facility] Specimen Blood Performing Organization Address City/[facility]/Zipcode Phone Number [place] [phone] [place] [address] [facility] * Basic Metabolic Panel (05/01/2018 12:36 PM MEETING PLANNER) Only the most recent of 5 results within the time period is included. Sodium 139 136 - 145 meq/L [facility] Potassium 3.8 3.5 - 5.1 meq/L [facility] Chloride 104 98 - 107 meq/L [facility] CO2 31 (H) 22 - 29 meq/L [facility] BUN 34 (H) 7 - 21 mg/dL [facility] Creatinine 1.57 (H) 0.57 - 1.25 mg/dL [facility] Glucose 51 (L) 70 - 105 mg/dL [facility] Calcium 9.4 8.4 - 10.2 mg/dL [facility] EGFR 34Comment: ESTIMATED GFR IS mL/min/1.73 sq m [facility] NOT ACCURATE CREATININE [facility] CLEARANCE IN PREDICTING GLOMERULAR FILTRATION RATE. ESTIMATED GFR IS NOT APPLICABLE FOR DIALYSIS PATIENTS. Specimen Blood Performing Organization Address City/State/Zipcode Phone Number [facility] [address] [place] [address] [facility] * CBC with platelet count + automated diff (05/01/2018 12:35 PM MEETING PLANNER) Only the most recent of 6 results within the time period is included. WBC 6.5 3.5 - 10.5 K/L [facility] RBC 3.56 (L) 3.93 - 5.22 M/L [facility] Hemoglobin 12.0 11.2 - 15.7 GM/DL [facility] Hematocrit 36.2 34.1 - 44.9 % [facility] MCV 101.7 (H) 79.4 - 94.8 fL [facility] MCH 33.7 (H) 25.6 - 32.2 pg [facility] MCHC 33.1 32.2 - 35.5 GM/DL [facility] RDW 14.8 (H) 11.7 - 14.4 % [facility] Platelets 116 (L) 150 - 450 K/CU MM [facility] MPV 10.7 9.4 - 12.3 fL [facility] nRBC 0 0 - 0 /100 WBC [facility] % Neutros 58 % [facility] % Lymphs 25 % [facility] % Monos 15 % [facility] % Eos 2 % [facility] % Baso 0 % [facility] # Neutros 3.76 1.56 - 6.13 K/L [facility] # Lymphs 1.64 1.18 - 3.74 K/L [facility] # Monos 0.95 (H) 0.24 - 0.36 K/L [facility] # Eos 0.15 0.04 - 0.36 K/L [facility] # Baso 0.02 0.01 - 0.08 K/L [facility] Immature 0 0 - 1 % [facility] Granulocytes-Relative [facility] Specimen Blood Performing Organization Address City/State/Zipcode Phone Number [facility] [address] [place] [address] [facility] * TRANSFUSION SERVICE REPORT - SCAN (03/13/2018 5:53 PM MEETING PLANNER) Narrative Performed At * XR mandible 4 views min (03/12/2018 11:01 AM MEETING PLANNER) Narrative Performed At FINAL REPORT [facility] TECHNIQUE: Mandible four views minimal. INDICATION: Nonalcoholic [...] Report Verified Date/Time:03/12/2018 13:39:02 Reading Location: [address] Radiology Reading Room Procedure Note Interface, External Ris In - 03/12/2018 1:41 PM MEETING PLANNER FINAL REPORT TECHNIQUE: Mandible four views minimal. [...] Verified Date/Time: 03/12/2018 13:39:02 Reading Location: [address] Radiology Reading Room Performing Organization Address City/State/Zipcode Phone Number [employer] RIS * XR chest 2 views (03/12/2018 11:00 AM MEETING PLANNER) Narrative Performed At Addendum Begins [facility] REPORT STATUS:A The patchy opacity over the left base was compared to a CT of the abdomen and pelvis from 10/24/2016. This patchy opacity is most likely an area of scar/atelectasis in the lingula seen on arterial phase image 4. Signed: Clark Perales MD Report Verified Date/Time:03/12/2018 13:40:40 Reading Location: [address] Radiology Reading Room Addendum Ends FINAL [...] Report Verified Date/Time:03/12/2018 13:29:47 Reading Location: [address] Radiology Reading Room Procedure Note Interface, External Ris In - 03/12/2018 1:42 PM MEETING PLANNER Addendum Begins REPORT STATUS:A The patchy opacity over the left base was compared to a CT of the abdomen and pelvis from 10/24/2016. This patchy opacity is most likely an area of scar/atelectasis in the lingula seen on arterial phase image 4. Signed: Clark Perales MD Report Verified Date/Time: 03/12/2018 13:40:40 Reading Location: [address] Radiology Reading Room Addendum Ends FINAL [...] Verified Date/Time: 03/12/2018 13:29:47 Reading Location: [address] Radiology Reading Room Performing Organization Address City/State/Zipcode Phone Number GE RIS * XR dxa bone density study (03/12/2018 10:59 AM MEETING PLANNER) Narrative Performed At FINAL REPORT [employer] Bone mineral density study 03/12/2018. HISTORY PROVIDED: [...] MD Report Verified Date/Time:03/12/2018 13:09:05 [facility] Procedure Note Interface, External Ris In - 03/12/2018 1:11 PM MEETING PLANNER FINAL REPORT Bone mineral density study 03/12/2018. [...] Report Verified Date/Time: 03/12/2018 13:09:05 Reading Location: [facility] Mammo Reading Room Performing Organization Address City/State/Zipcode Phone Number GE RIS * Phosphorus (03/12/2018 9:53 AM MEETING PLANNER) Phosphorus 3.0 2.3 - 4.7 mg/dL [facility] Specimen Blood Performing Organization Address City/[facility]/Zipcode Phone Number [facility] [address] [place] [address] [facility]ENTER * Magnesium (03/12/2018 9:53 AM MEETING PLANNER) Magnesium 1.4 (L) 1.6 - 2.6 mg/dL [facility] Specimen Blood Performing Organization Address City/[facility]/Zipcode Phone Number [address] [address] [phone] * Gamma Glutamyl Transferase (GGT) (03/12/2018 9:53 AM MEETING PLANNER) GGT 73 (H) 9 - 64 U/L [facility] Specimen Blood Performing Organization Address City/[facility] Cent[facility]ode Phone Number [place] [phone] * Bilirubin, direct (03/12/2018 9:53 AM MEETING PLANNER) Bilirubin, Direct 1.0 (H) 0.1 - 0.5 mg/dL [facility] Specimen Blood Performing Organization Address [facility]v Phone Number [place] [phone] [place] [address] * Comprehensive metabolic panel (03/12/2018 9:53 AM MEETING PLANNER) Only the most recent of 2 results within the time period is included. Protein, Total 7.2 6.0 - 8.3 gm/dL [facility] Albumin 2.8 (L) 3.5 - 5.0 g/dL [facility] Alkaline Phosphatase 149 40 - 150 U/L [facility] Total Bilirubin 1.6 (H) 0.2 - 1.2 mg/dL [facility] Sodium 136 136 - 145 meq/L [facility] Potassium 4.5 3.5 - 5.1 meq/L [facility] Chloride 103 98 - 107 meq/L [facility] CO2 27 22 - 29 meq/L [facility] BUN 39 (H) 7 - 21 mg/dL [facility] Creatinine 1.49 (H) 0.57 - 1.25 mg/dL [facility] Glucose 113 (H) 70 - 105 mg/dL [facility] Calcium 9.0 8.4 - 10.2 mg/dL [facility] AST 31 5 - 34 U/L [facility] ALT 16 6 - 55 U/L [facility] EGFR 36Comment: ESTIMATED GFR IS mL/min/1.73 sq m [facility] NOT ACCURATE CREATININE [facility] CLEARANCE IN PREDICTING GLOMERULAR FILTRATION RATE. ESTIMATED GFR IS NOT APPLICABLE FOR DIALYSIS PATIENTS. Specimen Blood Performing Organization Address [facility] Centercode Phone Number [address] * Iron, TIBC, % sat. (without ferritin) (03/12/2018 9:41 AM MEETING PLANNER) Iron 77 40 - 160 ug/dL [facility] TIBC 200 (L) 250 - 450 ug/dL [facility] Iron % Saturation 39 20 - 55 % [facility] Specimen Blood Performing Organization Address [facility] Phone Number [address] * Vitamin D, 25-Hydroxy (03/12/2018 9:41 AM MEETING PLANNER) Vitamin D 25-Hydroxy 14.0 6.6 - 49.9 ng/mL [facility] Specimen Blood Narrative Performed At Effective 02/06/2017: Reference Range Change [facility] New: 6.6-49.9 ng/mL Previous: 13.0-47.8 ng/mL [facility] Recommended Vitamin D Target Range: 30.0-40.0 ng/mL Performing Organization Address [facility] Phone Number [address] [address] [phone] * Transferrin (03/12/2018 9:41 AM MEETING PLANNER) Transferrin 160 (L) 174 - 382 mg/dL [facility] Specimen Blood Performing Organization Address [facility] Phone Number [address] * Ferritin (03/12/2018 9:41 AM MEETING PLANNER) Ferritin 731 (H) 5 - 275 ng/mL [facility] Specimen Blood Performing Organization Address [facility] Phone Number [address] * Calcium, Ionized (03/12/2018 9:04 AM MEETING PLANNER) Calcium, Ion 1.07 (L) 1.12 - 1.27 mmol/L [facility] pH, Blood 7.34 [facility] Specimen Blood Performing Organization Address [facility] Phone Number [address] * Drug screen, urine, transplant (03/12/2018 8:51 AM MEETING PLANNER) Specimen Urine Narrative Performed At Performing Organization Address [facility] Phone Number [address] [phone] * aPTT (03/12/2018 8:47 AM MEETING PLANNER) PTT 37.4 (H) 22.5 - 36.0 seconds [facility] Specimen Blood Performing Organization Address [facility] Phone Number [address] * Fibrinogen (03/12/2018 8:47 AM MEETING PLANNER) Fibrinogen 390 225 - 434 mg/dl [facility] Specimen Blood Performing Organization Address [facility] Phone Number [address] * Type and screen, automated (03/12/2018 7:40 AM MEETING PLANNER) ABO/RH AUTOMATED ([place]) A POSITIVE [facility] Ab Scrn NEGATIVE [facility] Specimen Blood Performing Organization Address [facility] Phone Number [address] [address] [facility] * T Spot TB (03/12/2018 7:40 AM MEETING PLANNER) T-Spot TB Negative [facility] Neg Ctrl Spot Count 0 [facility] Panel A Spot 0 [facility] Panel B Spot 0 [facility] Pos Ctrl Spot Ct 0 [facility] Scan Result [facility] Specimen Blood Narrative Performed At Performing Organization Address [facility] Phone Number [facility] [address] [place] [address] LABORATORIES 100 * HIV-1 Antigen with HIV-1/2 Antibody (03/12/2018 7:40 AM MEETING PLANNER) HIV-1 Antigen with HIV NON-REACTIVE Nonreactive [facility] 1&2 Antibody [facility] Specimen Blood Performing Organization Address [facility] Phone Number [address] [address] [facility] * Cytomegalovirus antibody, IgM (03/12/2018 7:40 AM MEETING PLANNER) CMV IGM Negative Negative, Equivocal [facility] Specimen Blood Narrative Performed At CMV IgM Result Interpretation: [facility] </=0.8 Al Negative [facility] 0.9-1.0 Al Equivocal >/=1.1 Al Positive Performing Organization Address City/[facility]/Zipcode Phone Number [address] [address] [facility] * Hepatitis A antibody, IgM (03/12/2018 7:40 AM MEETING PLANNER) Hep A IgM HEPATITIS A TEST NEGATIVE Nonreactive [facility] Specimen Blood Performing Organization Address [facility]/Zipcode Phone Number [address] [address] [facility] * Carbohydrate antigen 19-9 (CA 19-9) (03/12/2018 7:40 AM MEETING PLANNER) CA 19-9 23 <34 U/mL [facility] Comment: INCORPORATED This test was performed using the Siemens (Intoloop) Chemiluminescent method. Values obtained from different assay methods cannot be used interchangeably. CA19-9 levels, regardless of value, should not be interpreted as absolute evidence of the presence or absence of disease. Specimen Blood Narrative Performed At Performing Lab [facility] [id number] [place] [id number] Helen Shahid MD, PhD, AMBER Performing Organization Address [facility] Phone Number [facility], [address] [facility] [address] * Zinc (03/12/2018 7:40 AM MEETING PLANNER) Zinc 49 (L) 60 - 130 mcg/dL [facility] Comment: INCORPORATED This test was developed and its analytical performance characteristics have been determined by [employer] [facility]. It has not been cleared or approved by the US Food and Drug Administration. This assay has been validated pursuant to the CLIA regulations and is used for clinical purposes. Specimen Blood Narrative Performed At Performing Lab [facility] *SPL [facility], [address] [place] [address] Bhakti Colvin MD, PhD Performing Organization Address [facility] Phone Number [facility], [address] [facility] [address] * Hepatitis B core antibody, IgM (03/12/2018 7:40 AM MEETING PLANNER) Hep B C IgM NON-REACTIVE Nonreactive [facility] Specimen Blood Performing Organization Address City/[facility]/Zipcode Phone Number [facility] [address] [place] [address] [facility] * EBV-VCA antibody, IgM (03/12/2018 7:40 AM MEETING PLANNER) HERLINDA ENCARNACION VIRAL CAPSID Negative Negative, Equivocal [facility] ANTIGEN IGM [facility] Specimen Blood Narrative Performed At Herlinda Encarnacion Viral Capsid Antigen IgM Result Interpretation: [facility] </=0.8 Al Negative [facility] 0.9-1.0 Al Equivocal >/=1.1 Al Positive Performing Organization Address City/[facility]/Zipcode Phone Number [address] * EBV-VCA antibody, IgG (03/12/2018 7:40 AM MEETING PLANNER) HERLINDA ENCARNACION VIRAL CAPSID Positive (A) Negative, Equivocal [facility] ANTIGEN IGG [facility] Specimen Blood Narrative Performed At Herlinda Encarnacion Viral Capsid Antigen IgG Result Interpretation: [facility] </=0.8 Al Negative [facility] 0.9-1.0 Al Equivocal >/=1.1 Al Positive Performing Organization Address [facility] Phone Number [address] * Screen, urine (03/12/2018 7:40 AM MEETING PLANNER) Preg Test, Ur Negative [facility] Specimen Urine Performing Organization Address [facility] Phone Number [address] * RPR (03/12/2018 7:40 AM MEETING PLANNER) RPR Nonreactive Nonreactive [facility] Specimen Blood Performing Organization Address [facility] Phone Number [address] * Hepatitis B surface antigen (03/12/2018 7:40 AM MEETING PLANNER) hepatitis B Surface Ag NON-REACTIVE Nonreactive [facility] Specimen Blood Performing Organization Address [facility] Phone Number [address] * Cytomegalovirus antibody, IgG (03/12/2018 7:40 AM MEETING PLANNER) CYTOMEGALOVIRUS, IGG Positive (A) Negative, Equivocal [facility] Specimen Blood Narrative Performed At CMV IgG Result Interpretation: [facility] </=0.8 Al Negative [facility] 0.9-1.0 Al Equivocal >/=1.1 AlPositive Performing Organization Address [facility]/Zipcode Phone Number [facility] [address] [place] [address] [facility] * Urinalysis w/Microscopic (03/12/2018 7:40 AM MEETING PLANNER) Color, UA Light Yellow [facility] Clarity, UA Clear [facility] Specific Ethel, UA 1.006 1.001 - 1.035 [facility] pH, UA 6.0 5.0 - 8.0 [facility] Protein, UA Negative Negative [facility] Glucose, UA Negative Negative [facility] Ketones, UA Negative Negative [facility] Bilirubin, UA Negative Negative [facility] Blood, UA Negative Negative [facility] Nitrite, UA Negative Negative [facility] Leukocytes, UA Negative Negative [facility] Urobilinogen, UA 0.2 0.2 - 1.0 mg/dL [facility] RBC, UA <1 /HPF [facility] WBC, UA 2 /HPF [facility] Bacteria, UA Rare [facility] Mucus Rare [facility] Squam Epithel, UA 1 /HPF [facility] Hyaline Casts, UA 5 /LPF [facility] Specimen Source [facility] Specimen Urine Performing Organization Address City/State/Zipcode Phone Number [facility] [address] [place] [address] [facility] * Uric acid (03/12/2018 7:40 AM MEETING PLANNER) Uric Acid 12.2 (H) 2.6 - 7.2 mg/dL [facility] Specimen Blood Performing Organization Address [facility] [place] [address] [phone] [place] [address] * T3 (03/12/2018 7:40 AM MEETING PLANNER) T3, Total 84 48 - 159 ng/dL [facility] Specimen Blood Performing Organization Address [facility]/[place] [address] [phone] [place] [address] * TSH (03/12/2018 7:40 AM MEETING PLANNER) TSH 1.34 0.35 - 4.94 uIU/mL [facility] Specimen Blood Performing Organization Address [facility] Phone Number [place] [phone] [place] [address] * T4 (03/12/2018 7:40 AM MEETING PLANNER) T4, Total 5.3 4.9 - 11.7 ug/dL [facility] Specimen Blood Performing Organization Address [facility] Phone Number [address] [address] [facility] * Hemoglobin A1c (03/12/2018 7:40 AM MEETING PLANNER) Hemoglobin A1C 5.1 4.3 - 6.1 % [facility] Specimen Blood Performing Organization Address City/State/Zipcode Phone Number [address] [address] [facility] * Carcinoembryonic Antigen (CEA) (03/12/2018 7:40 AM MEETING PLANNER) CEA, SERUM 16.7 (H) 0.0 - 5.0 ng/mL [facility] Specimen Blood Performing Organization Address [facility]/Zipcode Phone Number [address] [address] [facility] * Ethanol (03/12/2018 7:40 AM MEETING PLANNER) Ethanol Lvl <10 <=10 mg/dL [facility] Specimen Blood Performing Organization Address [facility] Phone Number [facility] [address] [place] [address] [facility] * Lipid panel (03/12/2018 7:40 AM MEETING PLANNER) Triglycerides 69 mg/dL [facility] Cholesterol 110 mg/dL [facility] HDL 38 mg/dL [facility] LDL Calculated 58 mg/dL [facility] Specimen Blood Narrative Performed At Triglyceride Reference Range: [facility] Low Risk <150 [facility] [id number] High Risk 200-499 Very High Risk>=500 Cholesterol Reference Range: Low Risk <200 [id number] High Risk>240 HDL Cholesterol Reference Range: Low Risk >=60 High Risk <40 LDL Cholesterol Reference Range: Optimal<100 Near [id number] Very High >=190 Performing Organization Address City/State/Zipcode Phone Number [facility] [address] [place] [address] [phone] [place] [address] * Blood gas, arterial (03/12/2018 7:26 AM MEETING PLANNER) pH, Arterial 7.44 7.35 - 7.45 [facility] pCO2, Arterial 37 35 - 45 mmHg [facility] pO2, Arterial 92 (H) 80 - 90 mmHg [facility] O2 Sat, Arterial 97.3 (H) 96.0 - 97.0 % [facility] HCO3, Arterial 24 21 - 29 mmol/L [facility] Base Excess, Arterial 0.5 -2.0 - 3.0 mmol/L [facility] Patient Temperature 37.0 C [facility] FIO2 21.0 % [facility] Specimen Blood, Arterial - Arm, Left Performing Organization Address [facility] Phone Number [address] [address] [facility] * Blood culture (03/04/2018 4:30 PM MEETING PLANNER) Only the most recent of 2 results within the time period is included. Result No growth in 5 days [facility] Specimen Blood Performing Organization Address [facility] Phone Number [address] [address] [facility] * Creatine Kinase (CK) (03/04/2018 4:23 PM MEETING PLANNER) Only the most recent of 2 results within the time period is included. Total CK 109 29 - 200 U/L [facility] Specimen Blood Performing Organization Address [facility] Phone Number [address] [address] [facility] * MR abdomen without & with IV contrast (11/19/2017 12:40 PM CDT) Narrative Performed At FINAL REPORT [employer] TECHNIQUE: MRI of the abdomen WITHOUT and [...] MD Report Verified Date/Time:11/19/2017 16:09:13 Reading Location: [facility] B1 C013Y CT Body Reading Room Procedure [...] Report Verified Date/Time: 11/19/2017 16:09:13 Reading Location: [facility] C013Y CT Body Reading Room [...] Blood Narrative Performed At [facility]formed at: [facility] [address] [place], [id number] Bioassayist: Harinder Heck MD, Phone:[phone] Performing Organization Address City/State/Zipcode Phone Number [facility] 1 after 07/12/2017 Insurance Payer Benefit Subscriber ID Type Phone Address Plan / Group MEDICAID - MEDICAID MGD ZHANNA xxxxxxxxx Medicaid CARE COMM STAR Contracted PLAN [facility] xxxxxxxxx MEDICARE MGD CARE MEDICARE O [employer] xxxxxxxxx Transplant MEDICARE MGD CARE [facility] ONLY [facility] REPL
--- NOTE | 2018-07-13 21:02 | Diagnostic Imaging Report ---
EXAM: CT Abdomen and Pelvis WITHOUT contrast INDICATION: Fever, sepsis without source. COMPARISON: 01/05/2018. TECHNIQUE: Abdomen and pelvis were scanned utilizing a multidetector helical scanner from the lung base to the pubic symphysis without administration of IV contrast. Absence of intravenous contrast decreases sensitivity for detection of focal lesions and vascular pathology. Coronal and sagittal reformations were obtained. Routine protocol was performed. IV CONTRAST: None. ORAL CONTRAST: Water RADIATION DOSE: Total DLP: 1329.05 mGy*cm Estimated effective dose: (DLP x 0.015 x size factor) mSv COMPLICATIONS: None FINDINGS: LINES and TUBES: None. LOWER THORAX: Right middle lobe linear atelectasis. HEPATOBILIARY: Hepatic cirrhosis. No focal hepatic lesions. No biliary ductal dilation. GALLBLADDER: Surgically absent. SPLEEN: Splenomegaly. PANCREAS: No focal masses or ductal dilatation. ADRENALS: No adrenal nodules KIDNEYS/URETERS: No hydronephrosis. 3.3 cm cyst in the lower pole of the left kidney. No stones. GI TRACT: No abnormal distention, wall thickening, or evidence of bowel obstruction. Appendix is normal. PELVIC ORGANS/BLADDER: Midline cystic mass in the pelvis measuring 15.0 x 12.2 cm demonstrate is slightly above than water attenuation, with an 8 mm rounded focus of calcification in its anterior wall on image 57 series 2. It likely arises from one of the adnexa and it abuts the anterior aspect of the uterus as seen on image 73. It has increased in size since the prior examination when it measured 9.7 cm. There is a small volume of air within the nondependent urinary bladder, likely related to recent instrumentation. Phleboliths scattered throughout the lower pelvis. LYMPH NODES: No lymphadenopathy. VESSELS: Large collaterals in the perisplenic region, possibly a spontaneous renal shunt. PERITONEUM / RETROPERITONEUM: No free air or fluid. BONES: There are degenerative changes in the lumbar spine particularly at L3-L4. Compression fracture deformity of T12, unchanged. SOFT TISSUES: Unremarkable. IMPRESSION: 1. Hepatic cirrhosis. Mild splenomegaly and portal hypertension. 2. Large, 15.0 cm mildly complex left pelvic mass. It has incompletely increased in size, previously measuring 9.7 cm. Nonemergent gynecologic oncology evaluation is again recommended. Signed by: Dr. Olinda Latif M.D. on 07/13/2018 8:59 PM
[2018-07-14] VITALS (11 sets, daily range): BP systolic 86–129; BP diastolic 45–65
[2018-07-14 04:50] LABS: BASOPHILS % 0.1 % (0.0-1.0); EOSINOPHILS % 0.2 % (0.0-6.0); HEMATOCRIT 27.9 % (34.2-44.1); HEMOGLOBIN 9.5 g/dL (12.0-16.0); LYMPHOCYTES # (AUTO) 0.9 (1.0-3.2); LYMPHOCYTES % 9.5 % (18.0-39.1); MEAN CORPUSCULAR HEMOGLOBIN 35.2 pg (28-32); MEAN CORPUSCULAR HGB CONC 34.1 g/dL (31-35); MEAN CORPUSCULAR VOLUME 103.3 fL (81-99); MONOCYTES # (AUTO) 0.8 (0.2-0.8); MONOCYTES % 8.8 % (4.4-11.3); NEUTROPHILS # (AUTO) 7.4 (2.1-6.9); PLATELET COUNT 70 x10e3/uL (140-360); RED CELL DISTRIBUTION WIDTH 14.4 % (11.7-14.4)
[2018-07-14 05:00] LABS: INR 1.49; PROTHROMBIN TIME 18.6 seconds (11.9-14.5)
[2018-07-14 05:15] LABS: CREATINE KINASE MB 1.7 ng/mL (0-5.0)
[2018-07-14 05:32] LABS: ALBUMIN 2.2 g/dL (3.5-5.0); ALBUMIN/GLOBULIN RATIO 0.6 (0.8-2.0); ANION GAP 10.8 mmol/L (8-16); CALCIUM 7.8 mg/dL (8.4-10.2); CREATININE, SERUM 1.6 mg/dL (0.57-1.11); POTASSIUM 3.8 mmol/L (3.5-5.1)
[2018-07-14] MEDS: CEFEPIME 2 GM/NS 0.9% 100 ML 100 ML IV SCH (05:46)
[2018-07-14] MEDS ORDERED: CEFEPIME HCL 1 GM VIAL IV SCH (09:00)
--- NOTE | 2018-07-14 10:05 | History and Physical ---
CHIEF COMPLAINT: Altered mental status. HISTORY OF PRESENT ILLNESS: A 57-year-old morbidly obese female patient with history of diabetes mellitus, end-stage liver disease, chronic kidney disease, admitted with altered mental status, fever of 103, hypotension, increased lactic acid level. The patient admitted to ICU for sepsis. She was given antibiotics. She is more awake, alert today. She also shaved her right ankle area with blunt razor and she had a wound on the right posterior ankle with draining edema fluid with some redness around. PAST MEDICAL HISTORY: End-stage liver disease, diabetes mellitus, hypertension, morbid obesity, depression, and hyperlipidemia. MEDICATIONS: Atorvastatin 40 mg daily, Lasix 40 mg 3 times a day, glimepiride 2 mg daily, NovoLog, lactulose, magnesium, metolazone 5 mg 2 tablets daily, rifaximin 550 mg b.i.d., spironolactone 25 mg 2 tablets daily, Viibryd 40 mg daily. ALLERGIES: NONE. PERSONAL HISTORY: Chronic smoking, no history of alcohol use. PHYSICAL EXAMINATION: VITAL SIGNS: Blood pressure 86/45 on admission, temperature 99. HEENT: Normal. NECK: No JVD. LUNGS: Clear. CVS: Normal. ABDOMEN: Soft, nontender. No clinical ascites. EXTREMITIES: Lower extremities trace edema present. Right posterior lower leg, the patient has slight redness, nontender. LABORATORY DATA: CBC, white blood count on admission 11.5, hemoglobin 11.1, now hemoglobin 9.5. Chemistry; sodium 139, potassium 3.8, BUN 33, creatinine 1.6, total bilirubin 3.0, lactic acid 12. ASSESSMENT: Altered mental status, hyperammonemia, end-stage liver disease, fever with hypotension, possible sepsis, chronic kidney disease, elevated lactic acid from combination of sepsis with end-stage liver disease and chronic kidney disease. PLAN: We will keep on antibiotics today. Blood culture pending. Discharge when blood culture negative. Resume home medications. Give cefepime 1 g q.12. MD NANETTE Olivares/CRISTAL /[id number]
--- NOTE | 2018-07-14 10:17 | NUR ---
pt vs stable, MD rounded. pt downgraded, report called to Cesar HILL. pt stable.
--- NOTE | 2018-07-14 11:05 | NUR ---
WOUND CARE CONSULTATION INITIAL EVALUATION DX: ALTERED MENTAL STATUS, CIRRHOSIS AND HEPATIC ENCEPHALOPATHY LABS: WBC:90.9 ALB: 2.2 BLOOD CX PENDING. Wound Care Consulted For: "WHIPPING LEGS" Alternating Pressure Air Mattress Moderate Strict PUP IMPRESSION: YEAS TO ABDOMINAL FOLDS. 3+PITTING EDEMA TO BILATERAL LOWER EXTREMITIES. NO OPEN AREAS NOTED. NO DRAINAGE PRESENT AT THIS TIME. NO S/S OF INFECTION. RECOMMENDATION: -NYSTATIN POWDER TO ABDOMINAL FOLDS DAILY AND PRN. -Continue with Alternating Pressure Air Mattress -Provide pt Bilateral Heel Protectors and Offload Heels with Pillows -Turn and Reposition Every 2 Hours THANKS FOR THIS CONSULTATION. Addendum: 07/14/18 at 1111 by Inessa Arias RN Amended: Links added.
[2018-07-14 12:39] LABS: CREATINE KINASE MB 2.4 ng/mL (0-5.0)
[2018-07-14] MEDS ORDERED: IPRATROPIUM/ALBUTEROL SULFATE 4 GM INH INH PRN (14:45)
[2018-07-14] MEDS ORDERED: ALBUTEROL/IPRATROPIUM 3 ML NEB INH PRN (15:30)
--- NOTE | 2018-07-14 16:36 | NUR ---
Nutrition Screen Note RD Recommendation for Physician: - Continue current diet Plan of Care: RD following, monitoring for tolerance and adequacy Nutrition reason for involvement: MD Consult- evaluation Primary Diagnose(s): AMS, sepsis, cirrhosis, hepatic encephalopathy PMH: ESLD, DM, HTN, HLD, CKD Ht: 67 in Wt: 334 lb BMI: 52.4 kg/m2 IBW: [address] Assessment: (07/14) 57 YOF admitted with AMS found to have sepsis with PMH of ESLD currently undergoing evaluation for transplant. Pt seen today per MD consult for "evaluation." Pt know from prior admits. 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 Per prior admit wt of 340# in Jan 2018, pt with no significant wt change. Pt reports she was following a low protein, low sodium, diabetic diet "up until the holidays" and then started eating "everything". Pt reports she has been seeing a dietitian for wt loss prior to gastric bypass surgery and has received diet education x 3 visits with another 3 visits pending. Chart reviewed. Labs and meds reviewed. LBM 07/14. Skin intact. Will monitor and continue to follow. Current Diet: 1800 ADA Malnutrition Evaluation (07/14/18) The patient does not meet criteria for a specified degree of malnutrition at this time. Will re-evaluate at follow-up as appropriate. Diet Education Needs Assessment: Diet education not indicated. Nutrition Care Level: Low Signed: Arelis Wolfe RD, LD, [facility]
[2018-07-14] MEDS ORDERED: LACTULOSE PO SCH (17:00)
[2018-07-14] MEDS: SPIRONOLACTONE 25 MG TAB PO SCH (17:11)
[2018-07-14] MEDS: LACTULOSE SYRUP 20 GM/30 ML UDC PO SCH ×2 (17:11→20:03)
[2018-07-14] MEDS: FUROSEMIDE 40 MG TAB PO SCH (17:11)
[2018-07-14] MEDS: RIFAXIMIN 550 MG TABLET PO SCH (17:11)
[2018-07-14] MEDS: GLIMEPIRIDE 2 MG TAB PO SCH (17:11)
[2018-07-14] MEDS: HYDROCODONE/APAP 7.5MG-325MG 1 EA TAB PO PRN (17:12)
[2018-07-14] MEDS: CEFEPIME 1GM/NS 0.9% 50 ML 50 ML IV SCH (17:12)
[2018-07-14] MEDS: NON-FORMULARY MEDICATION (Vilazodone Hydrochloride (Viibryd) 40 MG) PO SCH (20:03)
[2018-07-15] VITALS (7 sets, daily range): BP systolic 99–122; BP diastolic 53–57
[2018-07-15] MEDS: LACTULOSE SYRUP 20 GM/30 ML UDC PO SCH ×5 (05:14→21:00)
[2018-07-15] MEDS: CEFEPIME 1GM/NS 0.9% 50 ML 50 ML IV SCH ×2 (05:14→18:36)
[2018-07-15] MEDS: HYDROCODONE/APAP 7.5MG-325MG 1 EA TAB PO PRN ×2 (05:24→13:38)
[2018-07-15] MEDS: FUROSEMIDE 40 MG TAB PO SCH ×2 (08:51→17:26)
[2018-07-15] MEDS: NYSTATIN 15 GM POWDER UD BTL TOP SCH (08:51)
[2018-07-15] MEDS: SPIRONOLACTONE 25 MG TAB PO SCH ×2 (08:51→17:26)
[2018-07-15] MEDS: SERTRALINE HCL 50 MG TAB PO SCH ×2 (08:51→08:54)
[2018-07-15] MEDS: MAGNESIUM OXIDE 400 MG TAB PO SCH (08:51)
[2018-07-15] MEDS: GLIMEPIRIDE 2 MG TAB PO SCH (08:51)
[2018-07-15] MEDS: RIFAXIMIN 550 MG TABLET PO SCH ×2 (08:51→17:26)
[2018-07-15] MEDS ORDERED: VANCOMYCIN 1GM/NS 250 ML 250 ML IV SCH ×2 (12:00→16:45)
[2018-07-15] MEDS: NON-FORMULARY MEDICATION (Vilazodone Hydrochloride (Viibryd) 40 MG) PO SCH (21:00)
[2018-07-16 00:09] VITALS: BP 105/52
[2018-07-16] MEDS: HYDROCODONE/APAP 7.5MG-325MG 1 EA TAB PO PRN ×2 (02:44→08:49)
[2018-07-16 04:13] VITALS: BP 110/54
[2018-07-16] MEDS: LACTULOSE SYRUP 20 GM/30 ML UDC PO SCH ×3 (05:46→12:34)
[2018-07-16] MEDS: CEFEPIME 1GM/NS 0.9% 50 ML 50 ML IV SCH (05:47)
[2018-07-16 08:15] VITALS: BP 104/56
--- NOTE | 2018-07-16 08:38 | NUR ---
IMM letter delivered and explained to pt. She verbalized understanding, hoping to dc home soon. Signed copy placed in chart. Copy given to pt.
[2018-07-16] MEDS: SERTRALINE HCL 50 MG TAB PO SCH (08:45)
[2018-07-16] MEDS: FUROSEMIDE 40 MG TAB PO SCH (08:45)
[2018-07-16] MEDS: RIFAXIMIN 550 MG TABLET PO SCH (08:45)
[2018-07-16] MEDS: GLIMEPIRIDE 2 MG TAB PO SCH (08:45)
[2018-07-16] MEDS: SPIRONOLACTONE 25 MG TAB PO SCH (08:45)
[2018-07-16] MEDS: MAGNESIUM OXIDE 400 MG TAB PO SCH (08:45)
[2018-07-16] MEDS: NYSTATIN 15 GM POWDER UD BTL TOP SCH (08:46)
[2018-07-16 09:00] VITALS: BP 104/56
--- NOTE | 2018-07-16 09:00 | NUR ---
The pt. is in bed and comp of mouth pain with small lesions inside and outside of her mouth.
[2018-07-16 11:39] VITALS: BP 111/61
--- NOTE | 2018-07-16 13:38 | NUR ---
CASE MANAGEMENT INITIAL ASSESSMENT Lead Trainer to bedside to discuss plan of care with patient/family. CM/SW role and care transitions discussed. Anticipated discharge plan discussed along with duration of care. CM/SW discussed patients right to make decisions in care. CM work hours given. Patient lives: PATIENT LIVES IN [facility] [place], [place] WITH MOTHER Admit/Transfer: ED Hospital/ER visits since last admit: 1 POA/Emergency contact: SHANON VALLES WALL: [phone] Current/Previous Home Health: NONE AT THIS TIME PCP/Follow-up Care: DR. HERNANDEZ Current/Previous DME: NONE Medications (referring to index hospitalization or the first time you were in the hospital) a. Were changes made in your medications when you were in the hospital on [date of index hospitalization]? N/A Note: If no or not sure, please skip to question d b. Did you understand the changes? N/A c. Were you able to obtain your new medications right away? N/A d. Were you able to take your medications like the doctor wanted you to? N/A e. Did the hospital give you an accurate, easy to understand list of medications when you left? N/A Scale of 1-10 how comfortable does patient feel with disease management in outpatient setting: Other Services: NONE AT THIS TIME Employment Status: UNEMPLOYED Areas of Concerns: NONE AT THIS TIME Referral Needs: NONE Education Needs: NONE IMM/LOMAS given and signed (if applicable): IMM Goal for discharge: DSICHARGE HOME WITH NO NEEDS CM left business card at the bedside with contact information. Name and number was also written on the patients whiteboard. Patient verbalized understanding of discussion. CM will follow-up with ongoing discharge and transition of care needs.
[2018-07-16] MEDS ORDERED: LIDOCAINE VISC 2% SOLN 15 ML UDC PO ONE (15:00)
[2018-07-16 15:48] VITALS: BP 122/70
[2018-07-16] MEDS ORDERED: IPRATROPIUM/ALBUTEROL SULFATE 4 GM INH INH PRN (16:15)
[2018-07-16] MEDS ORDERED: HYDROCODONE/APAP 7.5MG-325MG 1 EA TAB PO PRN (16:15)
[2018-07-16] MEDS ORDERED: SPIRONOLACTONE 25 MG TAB PO SCH (17:00)
--- NOTE | 2018-07-16 17:03 | NUR ---
The pt. has been discharged home with instructions to continue the meds that she was taking at home and to follow up with Dr. Purdy in 7-10 days. SHe was escorted via w/c to private car for transport home.
[2018-07-16] MEDS ORDERED: FUROSEMIDE 40 MG TAB PO SCH (18:00)
--- NOTE | 2018-07-16 18:50 | Discharge Summary ---
HOSPITAL COURSE: A 57-year-old morbidly obese female patient with history of end-stage liver disease, admitted with altered mental status. Ammonia was elevated. She claimed to have fever. She was hypotensive. Blood culture initially showed gram-positive cocci, so she was treated for possible sepsis, however, the culture was coagulase-negative bacteria and also she remained clinically stable after ammonia came down and so she was discharged home as diagnosis of hepatic encephalopathy. No sepsis. She had cellulitis of the leg, that was treated. She will be following at clinic. DISCHARGE DIAGNOSES: Hepatic encephalopathy, diabetes mellitus, marked obesity, end-stage liver disease. DISCHARGE MEDICATIONS: Reconciled. DIET: Diabetic diet. MD NANETTE Olivares/MODL /[id number]
[2018-07-16] MEDS ORDERED: LACTULOSE SYRUP 20 GM/30 ML UDC PO SCH (21:00)
[2018-07-16] MEDS ORDERED: RIFAXIMIN 550 MG TABLET PO SCH (21:00)
[2018-07-17] MEDS ORDERED: GLIMEPIRIDE 2 MG TAB PO SCH (08:00)
[2018-07-17] MEDS ORDERED: SERTRALINE HCL 100 MG TAB PO SCH (09:00)
[2018-07-17] MEDS ORDERED: MAGNESIUM OXIDE 400 MG TAB PO SCH (09:00)
== END 2018-07-16 17:03 | disposition home or self-care (01) | DRG 871 ==
LOC: ER 16:07 → ERHOLD 20:40 → ICU 07-14 00:10 → MED/SURG2 07-14 11:18
PROVIDERS: ADMIT Internal Medicine; ATTEND Internal Medicine
DX: A41.9 Sepsis, unspecified organism (principal); N18.6 End stage renal disease; G93.40 Encephalopathy, unspecified; Z68.43 Body mass index [BMI] 50.0-59.9, adult; E72.20 Disorder of urea cycle metabolism, unspecified; I12.0 Hypertensive chronic kidney disease with stage 5 chronic kidney disease or end stage renal disease; K72.90 Hepatic failure, unspecified without coma; E66.01 Morbid (severe) obesity due to excess calories; R74.0 Nonspecific elevation of levels of transaminase and lactic acid dehydrogenase [LDH]; E78.5 Hyperlipidemia, unspecified; F17.210 Nicotine dependence, cigarettes, uncomplicated; E11.22 Type 2 diabetes mellitus with diabetic chronic kidney disease
CPT/HCPCS: 36415; 70450; 71045; 74176; 80048; 80053; 80076; 81001; 82140; 82550; 82553; 82948; 83518; 83605; 83735; 84484; 85025; 85610; 85730; 87040; 87070; 87071; 87205; 87400; 93005; 99284; J0692; J3370; J7030

== ENCOUNTER 2018-12-05 10:56 | Inpatient (IN) | payer MEDICARE, OTHER ==
[~2018-12-05] VITALS: Ht 172.7 cm; Wt 144.2 kg
[~2018-12-05 10:56] MED LIST changes: +NOVOLOG MI100 UNIT/1 SC
--- OUTSIDE RECORDS SUMMARY | 2018-12-05 11:02 | XMS REPORT | Summary of Care ---
Author Author [facility] Organization [facility] Address Unknown Phone Unavailable Care Team Providers Care Referral Manager Name Role Phone Yarelis Puryd MD PCP Reason for Visit * Reason Comments Morbid Obesity F/U pre-bariatric nutrition counseling Encounter Details Care Team Description Date Type Department Nilay Veloz, PhD [address] [place] [address] Morbid Obesity (F/U pre-bariatric nutrition counseling) 11/27/2018 Office Visit [facility] Family Medicine [address] [place] [address] Allergies Comments Active Allergy Reactions Severity Noted Date Elevated CK, myopathy Atorvastatin 02/09/2018 documented as of this encounter (statuses as of 11/27/2018) Medications End Date Status Medication Sig Dispensed Refills Start Date Active Ipratropium-Albuterol by Inhalation 0 (COMBIVENT RESPIMAT IN) route 4 times daily as needed for Other (SOB). Active Vilazodone HCl (VIIBRYD) Take by 0 40 MG TABS mouth at bedtime. Active rifAXIMin (XIFAXAN) 550 Take 550 mg 0 MG TABS by mouth two times daily. Active sertraline (ZOLOFT) 50 MG Take 50 mg by 0 tablet mouth at bedtime. Active ipratropium-albuterol Take 3 mL by 0 (DUO-NEB) 0.5-2.5 (3) nebulization MG/3ML every 6 hours as needed for Wheezing. Active lactulose (CEPHULAC) 10 g Take 40 g by 0 packet mouth 5 times daily. Active spironolactone Take 50 mg by 0 (ALDACTONE) 50 MG tablet mouth two times daily. Active Magnesium 400 MG TABS Take 400 mg 0 by mouth daily. Active Calcium Carbonate-Vitamin Take by 0 D (OSCAL 500/200 D-3 OR) mouth daily. Active Zinc Sulfate 220 (50 Zn) Take by 0 MG TABS mouth daily. Active Cholecalciferol (VITAMIN Take by 0 D3) 400 units CAPS mouth daily. Active ezetimibe (ZETIA) 10 MG Take 10 mg by 0 tablet mouth daily. Active Continuous Blood Gluc 1 Each daily. 1 Device 2 Buhr Dresser (PiPsportsSTYLE GIUSEPPE 9 READER) DARY Active Continuous Blood Gluc 1 Each every 9 Each 3 Sensor (PiPsportsSTYLE GIUSEPPE 10 days. 9 SENSOR SYSTEM) [facility] [place] 02/07/2019 Active ferrous sulfate 325 (65 Take 325 mg 0 Fe) MG EC tablet by mouth. 9 Active furosemide (LASIX) 80 MG Take 1 Tab by 270 Tab 3 tablet mouth 3 times 9 daily. Active metolazone (ZAROXOLYN) 10 Take 1 Tab by 90 Tab 3 MG tablet mouth daily. 9 documented as of this encounter (statuses as of 11/27/2018) Active Problems Problem Noted Date Other osteoporosis without current pathological fracture 06/02/2018 Volume overload 01/15/2018 Hepatic encephalopathy 01/15/2018 CKD (chronic kidney disease) stage 3, GFR 30-59 ml/min 12/10/2017 DORSEY (nonalcoholic steatohepatitis) 12/10/2017 Cirrhosis 12/10/2017 documented as of this encounter (statuses as of 11/27/2018) Social History Date Tobacco Use Types Packs/Day Years Used Current Some Day Smoker 15 Smokeless Tobacco: Never Used Drinks/Week oz/Week Comments Alcohol Use No Sex Assigned at Date Recorded Not on file Industry Job Start Date Occupation Not on file Not on file Not on file Travel End Travel History Travel Start No recent travel history available. documented as of this encounter Last Filed Vital Signs Reading Time Taken Comments Vital Sign - - Blood Pressure - - Pulse - - Temperature - - Respiratory Rate - - Oxygen Saturation - - Inhaled Oxygen Concentration 157.4 kg (347 lb) 11/27/2018 10:00 AM CDT Weight 170.2 cm (5' 7") 11/27/2018 10:00 AM CDT Height 54.35 11/27/2018 10:00 AM CDT Body Mass Index documented in this encounter Progress Notes * Nilay Veloz, PhD - 11/27/2018 9:30 AM CDT NUTRITION NOTE Date of visit: 11/27/2018 Visit #: 5 of 6 Type of Surgery: Gastric Sleeve Surgeon: Dr. Flanagan SUBJECTIVE: Main problem (s): Pt hasn't been feeling well, was in hospital beginning of October with acute anemia , so she hasn't been able to follow her diet plan. Her albumin is now down to 2. 9. She is still feeling nauseous and has been vomiting frequently. Been practicing not drinking with meals Eating spiral tube winder, watching portions. Meals/day: 1x/day Juices: sometimes, but been limiting Drinks one Boost drink per day Diet Hx: 1997 lost 126 lbs on own -- but gained the weight back Time to eat a meal: 30-35 minutes. Never goes back for seconds Exercise: water aerobics in evenings -- 3x/wk -- 2 hours OBJECTIVE: Age: 57 Sex: Female Ht: 5' 7 Recent Wt Hx: 11/27/2018: 347 lbs 08/11/2018: 352 lbs 07/10/2018: 335 lbs 06/11/2018: 333 lbs 06/05/2018: 329 lbs On 11/27/2018: Body mass index is 54.35 kg/m. 11/19/2018 Comprehensive Panel Component Value Flag Ref Range Units Status GLUCOSE 89 70 - 99 MG/DL Final BLOOD UREA NITROGEN 39 High 6 - 20 MG/DL Final CREATININE 1.66 High 0.60 - 1.30 MG/DL Final EGFR AA 40 Low >60 ML/MIN/1.73 Final EGFR 34 Low >60 ML/MIN/1.73 Final BUN/CREAT RATIO 23 6 - 28 RATIO Final SODIUM 141 133 - 146 MEQ/L Final POTASSIUM 4.6 3.5 - 5.4 MEQ/L Final CHLORIDE 102 95 - 107 MEQ/L Final CO2 25 19 - 31 MEQ/L Final CALCIUM 8.9 8.5 - 10.5 MG/DL Final PROTEIN TOTAL 6.0 Low 6.1 - 8.3 G/DL Final ALBUMIN 2.9 Low 3.5 - 5.2 G/DL Final GLOBULINS, SERUM, TOTAL 3.1 1.9 - 3.7 G/DL Final A/G RATIO 0.9 Low 1.0 - 2.6 RATIO Final BILIRUBIN TOTAL 1.2 <=1.2 MG/DL Final ALKALINE PHOSPHATASE 184 High 40 - 133 U/L Final AST (SGOT) 36 9 - 40 U/L Final ALT (SGPT) 10 5 - 40 U/L Final Comment: Nutrition Diagnosis: Morbid obesity related to disordered eating (skipping meals , eating out frequently, lack of physical activity) as evidenced by a BMI of 54. 35. Hypoalbuminemia related to inadequate total daily caloric and protein intake, as evidenced by an albumin level of 2.9. ASSESSMENT/PLAN 1) Diet Hx recall taken. Total daily caloric intake adequate, but salt consumpti on high due to eating out. Intake of whole grains, fruits, vegetables, milk/milk products low - Pt lost 5 lbs since last visit. - Albumin is low because of inability to get recommended daily calories and prot eins, due to nausea and vomiting 2) Discussed with pt importance of limiting salt intake with food, to minimize f luid retention. Stop canned soups 3) Reviewed with pt bariatric surgery guidelines Preparing for surgery: Eat small amounts - Your will only be able to consume about 2 oz of food at a time - Try taking less food at the table - Try using a smaller plate to make it look like you are eating more food - Try using smaller utensils to take smaller bites (salad fork or baby spoon) Make food less visible in your home - It is very important to avoid grazing (eating small amounts of food throughout the day) after surgery. Grazing will lead to weight gain - Store all food out of sight. Try to keep food off of the counters - Put your favorite foods in hard to reach places - When serving meals, keep pots or serving platters on the stove - not on the ta ble - Store leftovers immediately after meals or immediately throw them in the trash Modify your food shopping habits - Avoid grocery shopping on an empty stomach - Make a shopping list and stick to it - Shop the lacey. Avoid temptation by avoiding the aisles. Most whole foods are found along the perimeter of the store - Buy only the items that are necessary for you and your family Slow your eating down - Eating slowly is very important after you have your surgery. If you eat too qu ickly, you may vomit. Start to become aware of eating patterns before surgery an d modify the pace of eating. Try some of these tips to help slow yourself down: 1. Allow 30 minutes for meal times 2. Try eating with smaller utensils 3. Take smaller bites and chew food to a liquid consistency before s wallowing 4. Savor each bite. Pay attention to flavors, textures and consisten cy 5. Set your utensils down in between bites 6. Make a reminder sign that says EAT SLOWLY to remind you to do so Portions are important - Carefully weigh and measure all portions before eating. Start measuring portio ns prior to surgery to familiarize yourself with what a healthy portion looks li ke - Put all extra food away before eating - Cook just enough - Practice leaving something on your plate even before you have surgery Make eating an isolated activity - Choose a spot at home just for eating. The best bets are the dining room or ki [employer] table - Make a rule to wit whenever you put something in your mouth - Avoid doing other activities while eating - Avoid watching television while you are eating - Relax while eating - Become aware of hunger and satiety prior to surgery as well as following surge ry 4) Discussed with pt educational materials outlining the nutrition guidelines fo llowing gastric sleeve wt loss surgery. The instruction was done by first discus sing specific guidelines for pt to begin following after surgery: The importance of hydration was also stressed and pt was instructed to sip ca marcela free, non-carbonated and caffeine free fluids throughout the day in order to prevent dehydration. Pt was advised; not to drink with meals, to stop drinki ng 30 min before a meal and to wait 30-45 min after meals before resuming hydrat ion. Pt was asked to not chew gum, drink ETOH or use straws. Adequate protein was stressed. Pt was shown several ways in which adequate p rotein intake can be achieved and was asked to keep food records to ensure that it is. Take a complete chewable or liquid adult multivitamin, 1200-1500mg Ca citrate + Vit D chews, and 350-500mcg B12 sublingual daily. It was made clear that add itional supplementation may be necessary and it was explained that pt's labs belkis uld be drawn at appropriate intervals in order to develop an individualized supp lement regimen to meet pt's needs. We reviewed the specific habits adopted by those successful with weight loss following weight loss surgery and pt was encouraged to attend support group meet ings for additional reinforcement. Discussed with pt benefits of daily exercise affects cardiovascular bushra, we ight loss and weight maintenance. It was recommended that pt set a personal goa l of at least 30 minutes 4-5 days per week as long as medically appropriate. 5) Goals - Commit to a regular exercise routine - Limit canned soups and eat out less - Keep a food diary for review - Lose 10 lbs 6) Pt understanding of instruction good. Compliance expected at this time good 7) F/U in 4 weeks Total time spent with pt --- 30 minutes Nilay Veloz, PhD, RD, LD documented in this encounter Plan of Treatment Care Team Description Date Type Specialty Katlyn Robin MD [address] [facility] [address] [place] [address] [phone] 12/10/2018 Office Visit Gastroenterology Jayden Stanton MD [address] [facility] 8th Floor, [address] [place] [address] [phone] 12/24/2018 Office Visit Endocrinology Jammie Levine MD [address] [facility] [address] [place] [address] [phone] 12/31/2018 Office Visit Sleep Center Nilay Veloz, PhD [address] [place] [address] [phone] 01/07/2019 Office Visit Family Medicine Johnathon Guzman MD [address] [facility] [address] [place] [address] [phone] 01/13/2019 Office Visit Nephrology Order Schedule Name Type Priority Associated Diagnoses Ordered: 11/27/2018 CLREF AK Charge Routine Morbid obesity with BMI of 50.0-59.9, adult Health Maintenance Due Date Last Done Comments COLON CANCER SCREENIN1962 COLONOSCOPY MEDICARE AWV 1962 TETANUS SHOT (ADULT) 1977 ANNUAL DIABETIC FOOT EXAM 1980 ANNUAL DIABETIC 1980 RETINOPATHY SCREENING BMI FOLLOW UP PLAN 1980 CERVICAL CANCER SCREENING 12/27/1983 3 YEAR FOLLOW UP FLU VACCINE > 6 MONTHS 11/27/2018 MAMMOGRAM ANNUAL 03/13/2019 03/13/2018 HEPATITIS C SCREENING Completed 10/15/2016 HIV SCREENING Completed 03/12/2018 documented as of this encounter Results Not on filedocumented in this encounter Visit Diagnoses Diagnosis Morbid obesity with BMI of 50.0-59.9, adult - Primary documented in this encounter Insurance Type Payer Benefit Subscriber ID Effective Phone Address Plan / Dates Group PPO [facility] DUAL xxxxxxxxx 2018- [address] Present [id number] CHOICE(REG [place] P[place])-[facility] [id number] Medicaid MEDICAID [employer] xxxxxxxxx 2018-P [address] - [place] [address] [place] [address] documented as of this encounter
[2018-12-05] MEDS ORDERED: ASPIRIN 81 MG CHEW TAB PO ONE (11:15)
[2018-12-05 11:39] LABS: BASOPHILS % 0.2 % (0.0-1.0); EOSINOPHILS % 0.7 % (0.0-6.0); HEMATOCRIT 26.2 % (34.2-44.1); HEMOGLOBIN 8.6 g/dL (12.0-16.0); LYMPHOCYTES # (AUTO) 0.6 (1.0-3.2); LYMPHOCYTES % 14.6 % (18.0-39.1); MEAN CORPUSCULAR HEMOGLOBIN 31.6 pg (28-32); MEAN CORPUSCULAR HGB CONC 32.8 g/dL (31-35); MEAN CORPUSCULAR VOLUME 96.3 fL (81-99); MONOCYTES # (AUTO) 0.4 (0.2-0.8); MONOCYTES % 9.5 % (4.4-11.3); NEUTROPHILS # (AUTO) 3.1 (2.1-6.9); NEUTROPHILS % 74.8 % (38.7-80.0); PLATELET COUNT 138 x10e3/uL (140-360); RED BLOOD COUNT 2.72 x10e6/uL (3.6-5.1)
[2018-12-05] MEDS ORDERED: LORAZEPAM INJ 2 MG/ML VIAL IV ONE (12:00)
[2018-12-05 12:04] LABS: INR 1.43
[2018-12-05 12:05] LABS: ALBUMIN 2.7 g/dL (3.5-5.0); ALBUMIN/GLOBULIN RATIO 0.7 (0.8-2.0); ANION GAP 15.1 mmol/L (8-16); CALCIUM 8.9 mg/dL (8.4-10.2); CREATININE, SERUM 2.04 mg/dL (0.57-1.11); POTASSIUM 4.1 mmol/L (3.5-5.1)
[2018-12-05 12:21] LABS: CREATINE KINASE MB 1.7 ng/mL (0-5.0)
[2018-12-05] MEDS: SODIUM CHLORIDE 0.9% 1000ML 2,000 ML IV SCH ×2 (12:34→13:16)
--- NOTE | 2018-12-05 12:41 | Diagnostic Imaging Report ---
CT BRAIN WO HISTORY: Altered mental status COMPARISON: Head CT 07/13/2018 TECHNIQUE: Noncontrast axial scans were obtained from skull base to the vertex. Coronal and sagittal reconstructions obtained from the axial data. One or more of the following dose reduction techniques were used: Automated exposure control, adjustment of the mA and/or kV according to patient size, and/or utilization of iterative reconstruction technique. DISCUSSION: Motion and beam hardening artifacts obscure some details. Scalp/Skull: Unremarkable. Brain sulci: Appropriate for patient's age. Ventricles: Normal in size and configuration. No hydrocephalus. Extra-axial spaces: No gross masses or fluid collections. Parenchyma: There is questionable mild cerebellar tonsillar ectopia. Otherwise, no gross mass, hemorrhage, or large vascular territory acute infarct. Dural sinuses: No abnormal densities. Sellar/Suprasellar region: Grossly unremarkable. Skull base: Intact. Incidental findings: None. IMPRESSION: Limited exam due to motion and beam hardening artifacts. In spite of limitations: 1. No acute intracranial abnormalities. 2. Questionable mild cerebellar tonsillar ectopia. Signed by: Dr. Kj Ledezma M.D. on 12/05/2018 12:38 PM
[2018-12-05] MEDS ORDERED: DEXTROSE 50% SYRINGE 50 ML IV PRN (13:00)
[2018-12-05] MEDS ORDERED: LACTULOSE SYRUP 20 GM/30 ML UDC PO PRN (13:00)
[2018-12-05] MEDS ORDERED: LORAZEPAM INJ 2 MG/ML VIAL IV PRN (13:00)
[2018-12-05 13:18] LABS: AMPHETAMINES SCREEN,URINE NEGATIVE (NEGATIVE); BENZODIAZEPINES SCREEN,URINE NEGATIVE (NEGATIVE); PHENCYCLIDINE SCREEN,URINE NEGATIVE (NEGATIVE)
[2018-12-05 13:23] LABS: BILIRUBIN,URINE NEGATIVE (NEGATIVE); CLARITY,URINE CLEAR (CLEAR); COLOR,URINE YELLOW (YELLOW); KETONES,URINE NEGATIVE (NEGATIVE); LEUKOCYTE ESTERASE ,URINE TRACE (NEGATIVE); NITRITE,URINE NEGATIVE (NEGATIVE); PROTEIN,URINE DIPSTICK NEGATIVE (NEGATIVE); URINE UROBILINOGEN 0.2 mg/dL (0.2 - 1)
[2018-12-05 13:35] LABS: BACTERIA,URINE FEW /HPF; EPITHELIAL CELLS,URINE FEW /LPF; RBC,URINE 0-5 /HPF (0-5); WBC,URINE (MAN) 0-5 /HPF (0-5)
[2018-12-05 13:36] LABS: TRANSITIONAL EPI CELLS,URINE FEW
[2018-12-05 13:45] VITALS: BP 145/73
[2018-12-05 13:48] VITALS: BP 145/73
[2018-12-05] MEDS: DEXTROSE 5%/0.9% SOD CHL 1,000 ML IV SCH (14:32)
[2018-12-05] MEDS: LACTULOSE SYRUP 20 GM/30 ML UDC PO SCH ×2 (14:52→16:05)
[2018-12-05 14:53] VITALS: BP 145/73
[2018-12-05 16:00] VITALS: BP 127/62
[2018-12-05] MEDS: INSULIN REGULAR, HUMAN 100 UNIT/1 ML 3ML VIAL SQ SCH ×2 (16:08→21:00)
[2018-12-05] MEDS ORDERED: LACTULOSE SYRUP 20 GM/30 ML UDC PO SCH (17:00)
[2018-12-05 20:00] VITALS: BP_SYST 127; BP_SYST 139; BP_DIAS 62; BP_DIAS 65
[2018-12-05 20:54] LABS: CREATINE KINASE MB 2.9 ng/mL (0-5.0)
[2018-12-05] MEDS ORDERED: LACTULOSE SYRUP 20 GM/30 ML UDC PO ONE (22:00)
[2018-12-06] VITALS (8 sets, daily range): BP systolic 107–140; BP diastolic 54–65
[2018-12-06] MEDS: DEXTROSE 5%/0.9% SOD CHL 1,000 ML IV SCH ×2 (00:45→09:46)
[2018-12-06 06:17] LABS: CREATINE KINASE MB 3.9 ng/mL (0-5.0)
[2018-12-06 07:12] LABS: BASOPHILS % 0.4 % (0.0-1.0); EOSINOPHILS # (AUTO) 0.1 (0.0-0.4); HEMOGLOBIN 8.6 g/dL (12.0-16.0); LYMPHOCYTES % 18.5 % (18.0-39.1); MEAN CORPUSCULAR HEMOGLOBIN 31.6 pg (28-32); MEAN CORPUSCULAR HGB CONC 30.7 g/dL (31-35); MEAN CORPUSCULAR VOLUME 102.9 fL (81-99); MONOCYTES # (AUTO) 0.6 (0.2-0.8); MONOCYTES % 11.4 % (4.4-11.3); NEUTROPHILS # (AUTO) 3.8 (2.1-6.9); NEUTROPHILS % 67.5 % (38.7-80.0); PLATELET COUNT 129 x10e3/uL (140-360); RED BLOOD COUNT 2.72 x10e6/uL (3.6-5.1); RED CELL DISTRIBUTION WIDTH 18.6 % (11.7-14.4)
[2018-12-06 07:19] LABS: ANION GAP 13.5 mmol/L (8-16); CALCIUM 8.7 mg/dL (8.4-10.2); CREATININE, SERUM 1.71 mg/dL (0.57-1.11); POTASSIUM 3.5 mmol/L (3.5-5.1)
[2018-12-06] MEDS: INSULIN REGULAR, HUMAN 100 UNIT/1 ML 3ML VIAL SQ SCH ×4 (07:30→20:47)
[2018-12-06] MEDS: LACTULOSE SYRUP 20 GM/30 ML UDC PO SCH ×4 (09:54→20:40)
[2018-12-06] MEDS: SPIRONOLACTONE 25 MG TAB PO SCH (16:39)
[2018-12-06] MEDS: ENOXAPARIN SOD INJ 40 MG/0.4 ML SYR SC SCH (16:39)
[2018-12-06] MEDS: FUROSEMIDE 40 MG TAB PO SCH (16:39)
--- NOTE | 2018-12-06 19:24 | History and Physical ---
CHIEF COMPLAINT: Encephalopathy UTI. HISTORY OF PRESENT ILLNESS: This is a 57-year-old female, morbidly obese with underlying liver cirrhosis presumed to be from DORSEY cirrhosis, who has also morbid obesity, type 2 diabetes, medical noncompliance, comes into the ED with underlying encephalopathy, ongoing for the last several days. According to the family at bedside, she does not take her lactulose and now she has elevated ammonia level, comes in very confused on examination. The patient apparently was taking lactulose, but did not several bowel movements according to the sister at bedside. The patient was alert, awake, and talking to me on examination. She was given some lactulose enemas yesterday, the patient had several bowel movements now and she is much more awake and not lethargic, oral lactulose. The patient denies any chest pain, palpitation, nausea, or vomiting. The patient is seen and evaluated at bedside on the medical floor. She is currently doing well, much better. Vital signs are stable during my evaluation. REVIEW OF SYSTEMS: 1. Pertinent positives: Encephalopathy. 2. Pertinent negatives: Denies any chest pain, palpitation, nausea, vomiting, diarrhea, dysuria, hematuria, frequency, urgency, lightheadedness, dizziness, abdominal pain, headaches, shortness of breath, cough, congestion, fever, or any other complaints. The rest of the 14-point review of systems have been reviewed with the patient and are negative. ALLERGIES: NO KNOWN DRUG ALLERGIES. HOME MEDICATIONS: 1. Sertraline 150 mg daily. 2. Aldactone 50 mg p.o. b.i.d. 3. Lactulose. 4. Glimepiride 2 mg daily. 5. Furosemide 80 mg b.i.d. PAST MEDICAL HISTORY: Hypertension, liver cirrhosis secondary to DORSEY cirrhosis, depression, hypertension, type 2 diabetes, medical noncompliance, and morbidly obese. PAST SURGICAL HISTORY: Reports none. FAMILY HISTORY: Hypertension and diabetes. SOCIAL HISTORY: No drugs. No alcohol. Does not smoke. Good social support. PHYSICAL EXAMINATION: VITAL SIGNS: Temperature is 96.2, pulse 78, respiratory rate is 22, blood pressure is 125/58, and pulse ox 98% on room air. GENERAL: Not in acute distress. Alert and oriented x3. Cooperative on examination. HEENT: Head; normocephalic and atraumatic. Eyes; pupils are equal, round, and reactive to light bilaterally. Extraocular Movements are intact bilaterally. Throat; no evidence of erythema or exudates in the posterior pharynx. Has poor dentition. NECK: Supple. Good range of motion. PULMONARY: Clear to auscultation bilaterally. No wheezing, no rales, no rhonchi, and no crackles appreciated. CARDIOVASCULAR: Positive S1 and S2. No murmurs, rubs, or gallops appreciated. GI: Abdomen is soft, nondistended, and nontender to palpation. Bowel sounds present. MUSCULOSKELETAL: Strength is 5/5 throughout. No evidence of any muscle deficits on examination. No weakness appreciated. NEUROLOGIC: Cranial nerves II through XII grossly intact. No evidence of any neurological deficits on exam. SKIN: Intact. Warm to touch. Good cap refill. PSYCHIATRIC: Normal affect and mood. EXTREMITIES: No edema. Good range of motion throughout. LABORATORY DATA: White count is 5.6, hemoglobin 8.6, hematocrit is 28, and platelets of 129. Coagulation, PT 18 and INR 1.4. Chemistry; sodium 142, potassium 3.5, chloride 106, bicarbonate 26, anion gap of 13, BUN 16, and creatinine is 1.7, on admission was 2. Glucose is 118. LFTs; total bilirubin is 2, AST is 59, and ALT is 26. Troponins were all negative. Albumin was 2.7. Lipase level was 62. Urinalysis was negative. Urine drug screen positive for opioids. Microbiology, none. IMAGING STUDIES: CT of the brain, no acute intracranial abnormalities. IMPRESSION: 1. Hepatic encephalopathy with elevated ammonia level. 2. Morbid obesity with medical noncompliance. 3. Type 2 diabetes. 4. Hypertension. 5. Fatty liver cirrhosis/nonalcoholic steatohepatitis cirrhosis. PLAN: At this time, lactulose enema was given, much improved ammonia level at 114. Repeat labs in the morning. Change to oral lactulose. Start on . Resume same antiglycemic medications, insulin sliding scale and Accu-Cheks. Resume antihypertensive medications. Put now on a diabetic diet as she is much more alert now and awake. Put on Lovenox for DVT prophylaxis. This is a patient of Dr. Johnston, so she will go ahead and transfer the service to him. This patient was supposed to be going to him initially, but the ER had admitted under me. Dr. Johnston has already left the facility. At this time, we will go ahead and transfer the services to him. MD LILIA Allen/ARNALDO /[id number]
[2018-12-07] VITALS (8 sets, daily range): BP systolic 122–141; BP diastolic 56–67
[2018-12-07] MEDS: LACTULOSE SYRUP 20 GM/30 ML UDC PO SCH ×5 (05:54→22:00)
[2018-12-07 06:02] LABS: BASOPHILS % 0.4 % (0.0-1.0); EOSINOPHILS % 0.2 % (0.0-6.0); HEMATOCRIT 29.4 % (34.2-44.1); LYMPHOCYTES # (AUTO) 0.8 (1.0-3.2); LYMPHOCYTES % 8.5 % (18.0-39.1); MEAN CORPUSCULAR HGB CONC 30.6 g/dL (31-35); MEAN CORPUSCULAR VOLUME 101.4 fL (81-99); MONOCYTES # (AUTO) 1.1 (0.2-0.8); MONOCYTES % 12.2 % (4.4-11.3); NEUTROPHILS # (AUTO) 7.3 (2.1-6.9); NEUTROPHILS % 78.2 % (38.7-80.0); PLATELET COUNT 135 x10e3/uL (140-360); RED CELL DISTRIBUTION WIDTH 18.8 % (11.7-14.4)
[2018-12-07 06:44] LABS: ANION GAP 18.1 mmol/L (8-16); CALCIUM 8.8 mg/dL (8.4-10.2); CREATININE, SERUM 1.86 mg/dL (0.57-1.11); POTASSIUM 4.1 mmol/L (3.5-5.1)
[2018-12-07] MEDS: INSULIN REGULAR, HUMAN 100 UNIT/1 ML 3ML VIAL SQ SCH ×4 (07:30→20:39)
[2018-12-07] MEDS ORDERED: SODIUM CHLORIDE 0.9% 250ML 250 ML ONE (08:14)
[2018-12-07] MEDS: SPIRONOLACTONE 25 MG TAB PO SCH ×2 (08:27→16:26)
[2018-12-07] MEDS: HYDROCODONE/APAP 7.5MG-325MG 1 EA TAB PO PRN ×2 (08:27→18:54)
[2018-12-07] MEDS: GLIMEPIRIDE 2 MG TAB PO SCH (08:27)
[2018-12-07] MEDS: FUROSEMIDE 40 MG TAB PO SCH ×2 (08:27→16:27)
[2018-12-07] MEDS: SERTRALINE HCL 50 MG TAB PO SCH (08:27)
[2018-12-07] MEDS: CEFTRIAXONE SOD 1 GM/NS 50 ML 50 ML IV SCH (08:27)
[2018-12-07 11:04] LABS: BILIRUBIN,URINE NEGATIVE (NEGATIVE); CLARITY,URINE SL CLOUDY (CLEAR); COLOR,URINE YELLOW (YELLOW); KETONES,URINE NEGATIVE (NEGATIVE); LEUKOCYTE ESTERASE ,URINE SMALL (NEGATIVE); NITRITE,URINE NEGATIVE (NEGATIVE); PROTEIN,URINE DIPSTICK NEGATIVE (NEGATIVE); URINE UROBILINOGEN 0.2 mg/dL (0.2 - 1)
[2018-12-07 11:21] LABS: BACTERIA,URINE FEW /HPF; EPITHELIAL CELLS,URINE FEW /LPF
[2018-12-07] MEDS: ENOXAPARIN SOD INJ 40 MG/0.4 ML SYR SC SCH (16:27)
[2018-12-08] MEDS: LACTULOSE SYRUP 20 GM/30 ML UDC PO SCH ×5 (04:28→21:00)
[2018-12-08 05:35] VITALS: BP 137/63
[2018-12-08 07:48] VITALS: BP 125/59
[2018-12-08] MEDS: SPIRONOLACTONE 25 MG TAB PO SCH ×2 (08:18→18:09)
[2018-12-08] MEDS: CEFTRIAXONE SOD 1 GM/NS 50 ML 50 ML IV SCH (08:18)
[2018-12-08] MEDS: GLIMEPIRIDE 2 MG TAB PO SCH (08:18)
[2018-12-08 08:19] VITALS: BP 125/59
[2018-12-08] MEDS: SERTRALINE HCL 50 MG TAB PO SCH (08:19)
[2018-12-08] MEDS: HYDROCODONE/APAP 7.5MG-325MG 1 EA TAB PO PRN ×2 (08:19→23:24)
[2018-12-08] MEDS: FUROSEMIDE 40 MG TAB PO SCH ×2 (08:19→18:09)
[2018-12-08] MEDS: INSULIN REGULAR, HUMAN 100 UNIT/1 ML 3ML VIAL SQ SCH ×4 (08:19→21:00)
[2018-12-08] MEDS ORDERED: ACETAMINOPHEN 325 MG TAB PO PRN (09:15)
[2018-12-08] MEDS ORDERED: LEVOFLOXACIN 500 MG TAB PO SCH (10:45)
[2018-12-08 12:08] VITALS: BP 120/58
[2018-12-08] MEDS ORDERED: PNEUMOCOCCAL VACCINE POLYVALENT 23 MCG/0.5 ML VIAL IM ONE (14:30)
[2018-12-08 15:55] VITALS: BP 113/55
[2018-12-08] MEDS: ACETAMINOPHEN 325 MG TAB PO PRN ×2 (15:56→22:30)
--- NOTE | 2018-12-08 17:34 | Consultation ---
DATE OF CONSULTATION: 12/08/2018 INFECTIOUS DISEASE CONSULT REASON FOR CONSULTATION: Urinary tract infection. Thank you, Dr. Purdy, for asking me to see this patient, who was admitted through the emergency department. HISTORY OF PRESENT ILLNESS: The patient is a 57-year-old woman referred for urinary tract infection. She presented to the emergency room on 12/05/2018 with confusion. The patient has had diarrhea for few days prior, but denies fever, chills, nausea, vomiting, abdominal pain, hematemesis and hematochezia. In the emergency department, she was noted to have temperature of 98.3 degrees Fahrenheit, pulse rate 87, respiratory rate 33, blood pressure 92/58, and oxygen saturation 97% on room air. Initial laboratory studies showed blood leukocyte count of 4110, BUN 69, creatinine 2.04, blood glucose 178, total bilirubin 2.[address] scan showed no acute abnormality. The patient had a malfunctioning peripheral IV, which was switched earlier today. PAST MEDICAL HISTORY: Diabetes mellitus type 2, peripheral neuropathy, hypertension, chronic kidney disease, cirrhosis of the liver secondary to nonalcoholic steatohepatitis, hepatitic encephalopathy, upper GI bleed and depression. PAST SURGICAL HISTORY: Cholecystectomy and cauterization of esophageal varices. ALLERGIES: NO KNOWN DRUG ALLERGIES. MEDICATIONS: See MAR. The current antibiotics are Levaquin 500 mg IV piggyback q.24h and ceftriaxone 1 g IV piggyback q.24h. IMMUNIZATIONS: She has not received pneumococcal vaccination in the past. FAMILY HISTORY: Significant for diabetes mellitus and hypertension. SOCIAL HISTORY: No alcohol, tobacco, or recreational drug use. REVIEW OF SYSTEMS: As per history of present illness. The patient has started spiking fever since 12/06/2018. She denies headache, chest pain, shortness of breath, nausea, vomiting, abdominal pain, hematemesis, and hematochezia. She reports dysuria but no gross hematuria. Also, there is no redness of the lower extremities. She has a chronic pain of both legs due to diabetic neuropathy. PHYSICAL EXAMINATION: GENERAL: No acute distress. Hard of hearing. VITAL SIGNS: T-max 100.8, pulse rate 84, respiratory rate 24, blood pressure 120/58, weight 310 pounds. HEENT: Normocephalic. There is no icterus or injection of conjunctivae. There is no ear or nasal discharge. Moist oral mucosa. No pharyngeal erythema or exudate. NECK: Supple. No meningismus. LUNGS: Good air entry bilaterally. HEART: Normal S1 and S2. Regular. ABDOMEN: Soft and nontender. EXTREMITIES: There is hyperpigmentation and chronic skin changes of the legs bilaterally. The dorsalis pedis and posterior tibial pulses are palpable. SKIN: There is no acute erythema. COMPUTER DESIGNER: Awake, alert, and oriented to person, place, and time. There is decreased sensation to monofilament test of the feet. Hard of hearing. LABORATORY AND DIAGNOSTICS: 12/07/2018 WBC 9290, hemoglobin 9, platelet 135,000, neutrophils 78.2, lymphocytes 8.5, monocytes 12.2, eosinophils 0.2, and basophils 0.4. BUN 64, creatinine 1.86, blood glucose 156. Urine culture is growing gram- negative tory, blood culture is pending. IMPRESSION: 1. Fever. 2. Hepatic encephalopathy from hyperammonemia and probable urinary tract infection present on admission. 3. Cirrhosis of the liver from nonalcoholic steatohepatitis. 4. Chronic kidney disease. 5. Diabetes mellitus type 2 with peripheral neuropathy. PLAN: 1. Await urine isolate identification and sensitivity and blood culture results. 2. Administer pneumococcal vaccination. MD SAYRA Ochoa/ARNALDO /[id number] MTDD
[2018-12-08] MEDS: ENOXAPARIN SOD INJ 40 MG/0.4 ML SYR SC SCH (18:09)
[2018-12-08 20:00] VITALS: BP 101/54
[2018-12-09] VITALS (7 sets, daily range): BP systolic 101–125; BP diastolic 52–66
[2018-12-09] MEDS: LACTULOSE SYRUP 20 GM/30 ML UDC PO SCH ×5 (05:00→20:30)
[2018-12-09] MEDS: CEFTRIAXONE SOD 1 GM/NS 50 ML 50 ML IV SCH (07:45)
[2018-12-09] MEDS: INSULIN REGULAR, HUMAN 100 UNIT/1 ML 3ML VIAL SQ SCH ×4 (08:41→20:42)
[2018-12-09] MEDS: FUROSEMIDE 40 MG TAB PO SCH (08:49)
[2018-12-09] MEDS: SERTRALINE HCL 50 MG TAB PO SCH (08:49)
[2018-12-09] MEDS: GLIMEPIRIDE 2 MG TAB PO SCH (08:49)
[2018-12-09] MEDS: SPIRONOLACTONE 25 MG TAB PO SCH (08:49)
[2018-12-09] MEDS ORDERED: IPRATROPIUM/ALBUTEROL SULFATE 4 GM INH INH PRN (10:00)
[2018-12-09] MEDS ORDERED: MINERAL OIL 132 ML BTL PR ONE (12:45)
[2018-12-09] MEDS ORDERED: HYDROMORPHONE 1MG/1ML INJ IV ONE (12:45)
[2018-12-09 12:52] LABS: ALBUMIN 2.1 g/dL (3.5-5.0); ALBUMIN/GLOBULIN RATIO 0.6 (0.8-2.0); ANION GAP 13.5 mmol/L (8-16); CALCIUM 7.8 mg/dL (8.4-10.2); CREATININE, SERUM 2.34 mg/dL (0.57-1.11); POTASSIUM 3.5 mmol/L (3.5-5.1)
[2018-12-09] MEDS: SODIUM CHLORIDE 0.9% 1000ML 1,000 ML IV SCH ×2 (13:13→22:42)
[2018-12-09] MEDS: MEROPENEM 500MG/ NS 50ML 50 ML IV SCH ×2 (13:13→20:30)
--- NOTE | 2018-12-09 14:24 | Diagnostic Imaging Report ---
EXAMINATION: CHEST SINGLE (NOT PORTABLE) INDICATION: Altered mental status COMPARISON: Chest radiograph 07/13/2018 FINDINGS: LINES/TUBES:EKG leads overlie the chest. LUNGS:The lungs are moderately inflated. No focal consolidation or pulmonary edema. PLEURA:No pleural effusion or pneumothorax. MEDIASTINUM:Cardiomegaly. BONES/SOFT TISSUES:No acute osseous injury. ABDOMEN:No free air under the diaphragm. IMPRESSION: No focal pneumonia or pulmonary edema. Cardiomegaly. Signed by: Abby Dhillon MD on 12/09/2018 2:21 PM
[2018-12-09] MEDS: HYDROCODONE/APAP 7.5MG-325MG 1 EA TAB PO PRN ×3 (14:30→22:39)
--- NOTE | 2018-12-09 15:06 | Consultation ---
DATE OF CONSULTATION: 12/09/2018 HISTORY OF PRESENT ILLNESS: Ms. Pily Grigsby is a 57-year-old female. Renal has been consulted for management of underlying acute kidney injury. She has been admitted with hepatic encephalopathy. She has existing history of underlying cirrhosis of liver, portal hypertension, history of hypertension. No prior history of any kidney insufficiency or kidney stone disease. Has underlying history of diabetes, increased BMI. Concurrently complaining severe low backache because she has been lying down. She also states she has been given LR lactulose and she has not had a bowel movement since yesterday and she feels that if she has a bowel movement, her backache and abdominal discomfort are going to be better. She has had prior hepatic encephalopathy, existing history of chronic kidney disease on record. LABORATORY DATA: Most recent labs which were done 2 days ago showed a white count of 9.29, hemoglobin 9 with a sodium of 140 with a potassium of 4.1, bicarb 19, BUN 64, and creatinine 1.86. ALLERGIES: NO APPARENT DRUG ALLERGIES. CURRENT MEDICATIONS: The patient is on multiple antibiotics including Levaquin as well as meropenem 500 mg IV q.8. She was on ceftriaxone, has been stopped. She is on Lasix 80 mg p.o. b.i.d., Aldactone 50 mg p.o. b.i.d., Levaquin 500 mg p.o. q.24 which has been stopped now. She is on Amaryl 2 mg daily. She is on enoxaparin 40 mg subcutaneous daily. She has regular insulin protocol. She is on sertraline 150 mg p.o. daily. SOCIAL HISTORY: Does not smoke or drink. FAMILY HISTORY: Significant for diabetes. PHYSICAL EXAMINATION: GENERAL: Awake, alert, lying supine, in no apparent distress. VITAL SIGNS: Blood pressure 101/54, pulse rate 75, afebrile, oxygen saturation 95% and respiratory rate 20. HEAD AND NECK: Cornea clear. Oral mucosa dry. Neck veins flat. LUNGS: Relatively clear. HEART: S1 and S2 audible. ABDOMEN: She is tender just about everywhere if I touch her particularly lower extremities, abdomen, upper chest area, but there is no rebound. There is no apparent visceromegaly. EXTREMITIES: Lower extremity, no edema. SKIN: Appears very dry with poor turgor. Urine culture shows ESBL. IMPRESSION AND PLAN: 1. Acute kidney injury. 2. Underlying cirrhosis. 3. History of hepatic encephalopathy. Currently appears over-diuresis. We will discontinue all diuretics. We will give Dilaudid 1 mg IV for pain. We will recommend an enema. In the meantime, we will start normal saline and resuscitate volume. Send urine electrolytes, chest x-ray, and kidney ultrasound. Blood pressure appears controlled. 4. Anemia, multifactorial. 5. Mild thrombocytopenia. 6. Complicated urinary tract infection. 7. Please see orders. MD MARY JANE Ibrahim/CRISTAL /[id number]
[2018-12-09] MEDS: ENOXAPARIN SOD INJ 40 MG/0.4 ML SYR SC SCH (17:21)
--- NOTE | 2018-12-09 18:18 | Diagnostic Imaging Report ---
EXAM: US RENAL RETROPERITONEAL COMP DATE: 12/09/2018 12:00 AM INDICATION: ^bebo COMPARISON: CT abdomen/pelvis, 07/13/2018 FINDINGS: Grayscale and color flow Doppler ultrasound of the kidneys and urinary bladder performed. Suboptimal evaluation due to body habitus and inability to be positioned adequately. Right kidney: 8.7 x 5.7 x 4.9 cm. Accuracy of measurements is limited as the right renal margins were not well seen. Cortical thickness 1.7 cm. No obvious hydronephrosis. Left kidney: 11.0 x 5.7 x 5.0 cm. Cortical thickness 1.6 cm. No obvious hydronephrosis. The left renal cyst reported on the previous CT was not visualized. Urinary bladder: Suboptimal overall visualization with no obvious abnormality. Ureteral jets could not be visualized. Prevoid volume 244 cc. Postvoid volume not obtained. IMPRESSION: 1. Suboptimal visualization of the kidneys with no obvious mass or hydronephrosis seen. 2. Suboptimal visualization of the urinary bladder with no obvious abnormality seen. Signed by: Dr. Benjy Rainey M.D. on 12/09/2018 6:15 PM
[2018-12-09 23:12] LABS: CREATININE,URINE RANDOM 136.31 mg/dL (47-110)
[2018-12-09 23:29] LABS: SODIUM,URINE < 20 mmol/L
[2018-12-10] VITALS (8 sets, daily range): BP systolic 109–143; BP diastolic 55–64
[2018-12-10] MEDS: MEROPENEM 500MG/ NS 50ML 50 ML IV SCH ×3 (04:45→19:34)
[2018-12-10] MEDS: LACTULOSE SYRUP 20 GM/30 ML UDC PO SCH ×5 (05:00→20:28)
[2018-12-10 06:03] LABS: ALBUMIN 2.1 g/dL (3.5-5.0); ALBUMIN/GLOBULIN RATIO 0.6 (0.8-2.0); ANION GAP 12.8 mmol/L (8-16); CALCIUM 7.9 mg/dL (8.4-10.2); CREATININE, SERUM 2.46 mg/dL (0.57-1.11); POTASSIUM 3.8 mmol/L (3.5-5.1)
[2018-12-10] MEDS: INSULIN REGULAR, HUMAN 100 UNIT/1 ML 3ML VIAL SQ SCH ×4 (07:30→20:28)
[2018-12-10] MEDS: SERTRALINE HCL 50 MG TAB PO SCH (09:17)
[2018-12-10] MEDS: SODIUM CHLORIDE 0.9% 1000ML 1,000 ML IV SCH ×2 (09:17→19:34)
[2018-12-10] MEDS: GLIMEPIRIDE 2 MG TAB PO SCH (09:17)
[2018-12-10] MEDS: HYDROCODONE/APAP 7.5MG-325MG 1 EA TAB PO PRN ×2 (11:30→19:34)
[2018-12-10] MEDS ORDERED: CYCLOBENZAPRINE HCL 10 MG TAB PO ONE (14:32)
[2018-12-10 15:36] LABS: ALBUMIN 2.1 g/dL (3.5-5.0); ALBUMIN/GLOBULIN RATIO 0.6 (0.8-2.0); ANION GAP 12.7 mmol/L (8-16); CALCIUM 7.9 mg/dL (8.4-10.2); CREATININE, SERUM 2.46 mg/dL (0.57-1.11); POTASSIUM 3.7 mmol/L (3.5-5.1)
[2018-12-10] MEDS: ENOXAPARIN SOD INJ 40 MG/0.4 ML SYR SC SCH (17:34)
[2018-12-11] VITALS (8 sets, daily range): BP systolic 107–132; BP diastolic 46–61
[2018-12-11] MEDS: MEROPENEM 500MG/ NS 50ML 50 ML IV SCH ×3 (04:00→20:54)
[2018-12-11] MEDS: LACTULOSE SYRUP 20 GM/30 ML UDC PO SCH ×5 (05:00→20:54)
[2018-12-11] MEDS: INSULIN REGULAR, HUMAN 100 UNIT/1 ML 3ML VIAL SQ SCH ×4 (07:30→21:10)
[2018-12-11] MEDS: GLIMEPIRIDE 2 MG TAB PO SCH (09:24)
[2018-12-11] MEDS: SERTRALINE HCL 50 MG TAB PO SCH (09:24)
[2018-12-11 11:14] LABS: ALBUMIN 1.9 g/dL (3.5-5.0); ALBUMIN/GLOBULIN RATIO 0.5 (0.8-2.0); ANION GAP 13.7 mmol/L (8-16); CALCIUM 7.8 mg/dL (8.4-10.2); CREATININE, SERUM 2.38 mg/dL (0.57-1.11); POTASSIUM 3.7 mmol/L (3.5-5.1)
[2018-12-11] MEDS: SODIUM CHLORIDE 0.9% 1000ML 1,000 ML IV SCH ×2 (11:18→22:16)
[2018-12-11] MEDS: HYDROCODONE/APAP 7.5MG-325MG 1 EA TAB PO PRN ×2 (12:20→20:55)
[2018-12-11] MEDS: ENOXAPARIN SOD INJ 40 MG/0.4 ML SYR SC SCH (17:41)
[2018-12-12] VITALS (7 sets, daily range): BP systolic 104–123; BP diastolic 48–58
[2018-12-12] MEDS: MEROPENEM 500MG/ NS 50ML 50 ML IV SCH ×3 (04:00→19:56)
[2018-12-12] MEDS: LACTULOSE SYRUP 20 GM/30 ML UDC PO SCH ×5 (05:18→20:47)
[2018-12-12 06:05] LABS: ALBUMIN 1.9 g/dL (3.5-5.0); ALBUMIN/GLOBULIN RATIO 0.5 (0.8-2.0); ANION GAP 11.7 mmol/L (8-16); CALCIUM 7.9 mg/dL (8.4-10.2); CREATININE, SERUM 2.26 mg/dL (0.57-1.11); POTASSIUM 3.7 mmol/L (3.5-5.1)
[2018-12-12] MEDS: INSULIN REGULAR, HUMAN 100 UNIT/1 ML 3ML VIAL SQ SCH ×3 (08:05→20:54)
[2018-12-12] MEDS: GLIMEPIRIDE 2 MG TAB PO SCH (09:24)
[2018-12-12] MEDS: HYDROCODONE/APAP 7.5MG-325MG 1 EA TAB PO PRN (09:44)
[2018-12-12] MEDS ORDERED: ALBUMIN 5% 0.05 GM/ML BTL IV ONE (15:45)
[2018-12-12] MEDS: FUROSEMIDE 40 MG TAB PO SCH (16:10)
[2018-12-12] MEDS: ENOXAPARIN SOD INJ 40 MG/0.4 ML SYR SC SCH (17:01)
[2018-12-12] MEDS: SODIUM CHLORIDE 1 GM TAB PO SCH (20:47)
[2018-12-13] VITALS (7 sets, daily range): BP systolic 95–128; BP diastolic 46–58
[2018-12-13] MEDS: MEROPENEM 500MG/ NS 50ML 50 ML IV SCH ×3 (04:00→20:00)
[2018-12-13] MEDS: LACTULOSE SYRUP 20 GM/30 ML UDC PO SCH ×5 (04:31→21:00)
[2018-12-13 06:49] LABS: ALBUMIN/GLOBULIN RATIO 0.6 (0.8-2.0); CREATININE, SERUM 2.22 mg/dL (0.57-1.11)
[2018-12-13] MEDS: GLIMEPIRIDE 2 MG TAB PO SCH (08:30)
[2018-12-13] MEDS: SODIUM CHLORIDE 1 GM TAB PO SCH (08:30)
[2018-12-13] MEDS: FUROSEMIDE 40 MG TAB PO SCH (08:30)
[2018-12-13] MEDS: HYDROCODONE/APAP 7.5MG-325MG 1 EA TAB PO PRN (08:30)
[2018-12-13] MEDS: INSULIN REGULAR, HUMAN 100 UNIT/1 ML 3ML VIAL SQ SCH ×4 (08:31→21:01)
[2018-12-14] VITALS (7 sets, daily range): BP systolic 94–118; BP diastolic 50–53
[2018-12-14] MEDS: MEROPENEM 500MG/ NS 50ML 50 ML IV SCH ×3 (04:00→20:00)
[2018-12-14] MEDS: LACTULOSE SYRUP 20 GM/30 ML UDC PO SCH ×5 (05:00→21:00)
[2018-12-14 07:29] LABS: BASOPHILS % 0.1 % (0.0-1.0); EOSINOPHILS # (AUTO) 0.3 (0.0-0.4); EOSINOPHILS % 3.7 % (0.0-6.0); LYMPHOCYTES # (AUTO) 0.5 (1.0-3.2); LYMPHOCYTES % 7.3 % (18.0-39.1); MEAN CORPUSCULAR HEMOGLOBIN 30.9 pg (28-32); MEAN CORPUSCULAR HGB CONC 32.4 g/dL (31-35); MEAN CORPUSCULAR VOLUME 95.5 fL (81-99); MONOCYTES # (AUTO) 1.2 (0.2-0.8); MONOCYTES % 18.3 % (4.4-11.3); NEUTROPHILS # (AUTO) 4.7 (2.1-6.9); NEUTROPHILS % 69.6 % (38.7-80.0); PLATELET COUNT 130 x10e3/uL (140-360); RED BLOOD COUNT 2.23 x10e6/uL (3.6-5.1); RED CELL DISTRIBUTION WIDTH 16.8 % (11.7-14.4)
[2018-12-14 07:43] LABS: HEMOGLOBIN 6.9 g/dL (12.0-16.0)
[2018-12-14 07:44] LABS: HEMATOCRIT 21.3 % (34.2-44.1)
[2018-12-14 07:52] LABS: ANION GAP 12.5 mmol/L (8-16); CALCIUM 8.4 mg/dL (8.4-10.2); CREATININE, SERUM 2.35 mg/dL (0.57-1.11); POTASSIUM 4.5 mmol/L (3.5-5.1)
[2018-12-14 08:29] LABS: BASOPHILS % 0.3 % (0.0-1.0); EOSINOPHILS # (AUTO) 0.3 (0.0-0.4); EOSINOPHILS % 4.2 % (0.0-6.0); LYMPHOCYTES # (AUTO) 0.5 (1.0-3.2); MEAN CORPUSCULAR HEMOGLOBIN 30.4 pg (28-32); MEAN CORPUSCULAR HGB CONC 32.2 g/dL (31-35); MEAN CORPUSCULAR VOLUME 94.3 fL (81-99); MONOCYTES # (AUTO) 1.1 (0.2-0.8); MONOCYTES % 17.8 % (4.4-11.3); NEUTROPHILS # (AUTO) 4.3 (2.1-6.9); NEUTROPHILS % 68.6 % (38.7-80.0); PLATELET COUNT 129 x10e3/uL (140-360); RED BLOOD COUNT 2.27 x10e6/uL (3.6-5.1); RED CELL DISTRIBUTION WIDTH 16.8 % (11.7-14.4)
[2018-12-14 08:41] LABS: HEMATOCRIT 21.4 % (34.2-44.1); HEMOGLOBIN 6.9 g/dL (12.0-16.0)
[2018-12-14] MEDS ORDERED: SODIUM CHLORIDE 0.9% 250ML 250 ML IV ONE (09:30)
[2018-12-14] MEDS: GLIMEPIRIDE 2 MG TAB PO SCH (09:42)
[2018-12-14] MEDS: FUROSEMIDE 40 MG TAB PO SCH (09:43)
[2018-12-14] MEDS: SODIUM CHLORIDE 1 GM TAB PO SCH ×2 (09:43→16:44)
[2018-12-14] MEDS: INSULIN REGULAR, HUMAN 100 UNIT/1 ML 3ML VIAL SQ SCH ×4 (09:51→22:24)
[2018-12-14] MEDS: HYDROCODONE/APAP 7.5MG-325MG 1 EA TAB PO PRN ×2 (10:49→22:45)
[2018-12-14] MEDS ORDERED: SODIUM CHLORIDE 0.9% 250ML 250 ML ONE (17:56)
--- NOTE | 2018-12-14 18:28 | Consultation ---
DATE OF CONSULTATION: 12/14/2018 REASON FOR CONSULTATION: Anemia. HISTORY OF PRESENT ILLNESS: Ms. Grigsby is a pleasant 57-year-old female with a history of liver stage secondary to DORSEY, with history of recent GI bleed at [facility] approximately a month or two ago, who was admitted apparently because of encephalopathy. The patient was noted to have some mild degree of kidney injury, this was managed by Nephrology however, hospital course has been complicated today by a sudden drop in hemoglobin and hematocrit, GI consult has been placed. From a GI point of view, she denies any discomfort, she is completely alert and awake. She denies any abdominal pain and has not noticed any active bleeding. PAST MEDICAL HISTORY: Significant for end-stage liver disease apparently, has been on and off from the first for transplantation. Risk factor for liver disease is mainly obesity. There is no history of IV drug use, tattoos, blood transfusions or body piercing. Etiology of cirrhosis has been determined to be secondary to DORSEY. REVIEW OF SYSTEMS: As in HPI. ALLERGIES: PLEASE REFER TO THE CHART. PHYSICAL EXAMINATION: VITAL SIGNS: Well within normal limits. GENERAL: Pleasant middle-aged female, morbidly obese, in no distress. HEENT: Unremarkable. NECK: Supple. LUNGS: Clear. ABDOMEN: Obese, soft and tender, difficult to assess, though no obvious hepatosplenomegaly, no obvious ascites. Bowel sounds were normal. RECTAL: Deferred. LABORATORY DATA: Hemoglobin on admission was 8.6, repeat hemoglobin today was 6.9 with a hematocrit of 21.4. Platelet count has remained stable in the 120s, white count was 6000. Blood chemistry today; electrolytes showed sodium of 126, BUN was 115, creatinine was 2.35, magnesium was 3. Most recent liver function tests showed a total bilirubin of 1.9, AST of 84, ALT of 41, alkaline phosphatase of 157, albumin was 2. INR was 1.43. IMAGING STUDIES: Renal ultrasound was unremarkable. ASSESSMENT: Middle-aged female with cirrhosis secondary to nonalcoholic steatohepatitis, portal hypertension, and report of a large pelvic mass of uncertain etiology after evaluated for decrease in hemoglobin and hematocrit. There are no overt sites of gastrointestinal bleeding at this point. PLAN: 1. For now, supportive care. 2. Regarding her liver disease, her MELD score has probably increased, it is approximately 21 or 26 with MELD sodium. This is of concern, though considering her obesity, certainly this is a decision for possible transplantation that I defer for the Liver Transplant team. 3. From heart point of view, we will try to keep n.p.o. after midnight, if hemoglobin remains low, we will arrange for EGD in a.m. MD SHARONA Morocho/MODL /[id number]
[2018-12-15] VITALS (7 sets, daily range): BP systolic 115–135; BP diastolic 46–70
[2018-12-15] MEDS: MEROPENEM 500MG/ NS 50ML 50 ML IV SCH ×3 (04:00→23:11)
[2018-12-15] MEDS: LACTULOSE SYRUP 20 GM/30 ML UDC PO SCH ×5 (05:00→21:00)
[2018-12-15 06:17] LABS: BASOPHILS % 0.3 % (0.0-1.0); EOSINOPHILS # (AUTO) 0.2 (0.0-0.4); EOSINOPHILS % 3.6 % (0.0-6.0); HEMOGLOBIN 7.5 g/dL (12.0-16.0); LYMPHOCYTES # (AUTO) 0.7 (1.0-3.2); LYMPHOCYTES % 11.3 % (18.0-39.1); MEAN CORPUSCULAR HEMOGLOBIN 31.3 pg (28-32); MEAN CORPUSCULAR VOLUME 94.6 fL (81-99); MONOCYTES # (AUTO) 1.1 (0.2-0.8); MONOCYTES % 18.4 % (4.4-11.3); NEUTROPHILS # (AUTO) 3.9 (2.1-6.9); NEUTROPHILS % 65.4 % (38.7-80.0); PLATELET COUNT 144 x10e3/uL (140-360); RED CELL DISTRIBUTION WIDTH 16.7 % (11.7-14.4)
[2018-12-15 06:34] LABS: INR 1.6; PROTHROMBIN TIME 19.7 seconds (11.9-14.5)
[2018-12-15 06:43] LABS: HEMATOCRIT 22.7 % (34.2-44.1)
[2018-12-15 06:51] LABS: ALBUMIN 1.9 g/dL (3.5-5.0); ALBUMIN/GLOBULIN RATIO 0.5 (0.8-2.0); ANION GAP 14.5 mmol/L (8-16); CALCIUM 8.4 mg/dL (8.4-10.2); CREATININE, SERUM 2.21 mg/dL (0.57-1.11); POTASSIUM 4.5 mmol/L (3.5-5.1)
[2018-12-15] MEDS: INSULIN REGULAR, HUMAN 100 UNIT/1 ML 3ML VIAL SQ SCH ×4 (07:30→21:00)
[2018-12-15] MEDS: GLIMEPIRIDE 2 MG TAB PO SCH (08:00)
[2018-12-15] MEDS: SODIUM CHLORIDE 1 GM TAB PO SCH ×2 (09:00→16:25)
[2018-12-15] MEDS ORDERED: SODIUM CHLORIDE 0.9% 1000ML 1,000 ML IV SCH (09:30)
[2018-12-15] MEDS ORDERED: ONDANSETRON HCL INJ 2MG/ML 2ML 2 MG/ML VIAL IV PRN (09:30)
[2018-12-15] MEDS: PANTOPRAZOLE 40 MG 10ML VIAL IV SCH (09:59)
--- NOTE | 2018-12-15 12:23 | Diagnostic Imaging Report ---
Abdominal ultrasound. History: Cirrhosis, hepatic encephalopathy. Comparison: None available. Discussion: Evaluation is limited due to patient body habitus and inability to cooperate with the exam. Transverse and longitudinal images of the abdomen were obtained. Only the left lobe of the liver was clearly visible, demonstrating diffuse nodularity of the liver surface contour. The right lobe was not well-visualized and difficulty length cannot be measured. The main portal vein was not visible. The CBD was not visible. The gallbladder is absent. The kidneys, pancreas, aorta, and spleen were poorly visualized. There is no visible free fluid. IMPRESSION: Extremely limited abdominal ultrasound. Cirrhotic liver is noted. Consider further evaluation with CT or MRI. Signed by: Eddie Valerio on 12/15/2018 12:20 PM
[2018-12-15] MEDS: RIFAXIMIN 550 MG TABLET PO SCH (16:25)
[2018-12-15] MEDS ORDERED: LACTULOSE SYRUP 20 GM/30 ML UDC NG ONE (20:40)
[2018-12-15 20:57] LABS: BASOPHILS % 0.1 % (0.0-1.0); EOSINOPHILS # (AUTO) 0.1 (0.0-0.4); EOSINOPHILS % 1.2 % (0.0-6.0); HEMATOCRIT 26.4 % (34.2-44.1); HEMOGLOBIN 8.8 g/dL (12.0-16.0); LYMPHOCYTES # (AUTO) 0.4 (1.0-3.2); LYMPHOCYTES % 6.2 % (18.0-39.1); MEAN CORPUSCULAR HEMOGLOBIN 30.9 pg (28-32); MEAN CORPUSCULAR HGB CONC 33.3 g/dL (31-35); MEAN CORPUSCULAR VOLUME 92.6 fL (81-99); MONOCYTES # (AUTO) 0.9 (0.2-0.8); MONOCYTES % 13.1 % (4.4-11.3); NEUTROPHILS # (AUTO) 5.4 (2.1-6.9); NEUTROPHILS % 78.1 % (38.7-80.0); PLATELET COUNT 172 x10e3/uL (140-360); RED BLOOD COUNT 2.85 x10e6/uL (3.6-5.1); RED CELL DISTRIBUTION WIDTH 16.9 % (11.7-14.4)
[2018-12-15] MEDS ORDERED: LACTULOSE SYRUP 20 GM/30 ML UDC RC ONE (21:00)
[2018-12-15 21:14] LABS: CREATINE KINASE MB 2.6 ng/mL (0-5.0)
[2018-12-15 21:16] LABS: ANION GAP 16.3 mmol/L (8-16); CALCIUM 8.8 mg/dL (8.4-10.2); CREATININE, SERUM 2.28 mg/dL (0.57-1.11); POTASSIUM 5.3 mmol/L (3.5-5.1)
--- NOTE | 2018-12-15 21:25 | Diagnostic Imaging Report ---
EXAMINATION: CHEST SINGLE (PORTABLE) INDICATION: Congestion COMPARISON: Chest radiograph 12/09/2018 FINDINGS: AP view Limited exam due to patient rotated right. TUBES and LINES: An enteric tube courses into the main chest and the tip is not discernible. LUNGS: Low lung volumes with vascular crowding. No consolidations. PLEURA: No pleural effusion or pneumothorax. HEART AND MEDIASTINUM: Within normal limits. BONES AND SOFT TISSUES: Unchanged. UPPER ABDOMEN: No free air under the diaphragm. IMPRESSION: An enteric tube courses into the midchest, the tip is not discernible, could possibly be in the esophagus. A repeat radiograph could delineate the location of the enteric tube tip. Signed by: Neil Park DO on 12/15/2018 9:22 PM
[2018-12-16] VITALS (26 sets, daily range): BP systolic 102–158; BP diastolic 33–69
[2018-12-16] MEDS ORDERED: SOD POLYSTYRENE SULFONATE SUSP 15 GM/60 ML BTL PO ONE (00:30)
--- NOTE | 2018-12-16 01:25 | Progress Note ---
DATE: 12/15/2018 SUBJECTIVE: The patient has had a bowel movement, no blood in the stool, stool soft brown. She has NG in place. REVIEW OF SYSTEMS: Unobtainable. Currently incoherent. INPATIENT MEDICATIONS: Reviewed as per MAR. She is on rifaximin as well as lactulose along with other medications. PHYSICAL EXAMINATION: VITAL SIGNS: Temperature 97.3, pulse 92, respirations 18, blood pressure 129/70, oxygen saturation 98% on room air. GENERAL: Obese, incoherent, and obtunded. HEENT: Oral mucosa is moist. Mildly icteric sclerae. ABDOMEN: Soft, nontender. No digitally appreciable shifting dullness. Bowel sounds present. EXTREMITIES: Bilateral pitting leg edema. LABORATORY DATA: Sodium 126, potassium 5.3, chloride 96, bicarb 19, BUN 121, creatinine 2.28. Hemoglobin 8.8 from 7.5, WBC 6.89, hematocrit 26.4, and platelet count 172. Ultrasound showed extremely limited abdominal ultrasound, cirrhotic liver. Further evaluation with CT or MRI is recommended. IMPRESSION: 1. Decompensated DORSEY liver cirrhosis with hepatic encephalopathy. 2. Anemia without any gross GI bleeding. 3. Hyponatremia PLAN: Continue treating encephalopathy with lactulose and rifaximin, keep giving lateral through the NG tube. Strict outpatient management for liver cirrhosis once the patient is recovered from encephalopathy. Fidencio Goyal MD SA/ARNALDO /[id number] MTDRancho
[2018-12-16] MEDS ORDERED: CIPROFLOXACIN 400 MG/D5W 200ML 200 ML IV SCH (01:30)
[2018-12-16] MEDS ORDERED: MIDAZOLAM HCL 2 MG/2 ML VIAL ONE ×2 (01:40→01:47)
[2018-12-16] MEDS ORDERED: SODIUM CHLORIDE 0.9% 250ML 250 ML ONE (01:41)
[2018-12-16] MEDS ORDERED: SODIUM CHLORIDE 0.9% 50ML 50 ML ONE (01:41)
[2018-12-16] MEDS ORDERED: MIDAZOLAM HCL 25 MG in SODIUM CHLORIDE 0.9% 50ML 45 ML IV PRN (01:45)
[2018-12-16] MEDS ORDERED: FENTANYL CITRATE INJ 2,000 MCG in SODIUM CHLORIDE 0.9% 250ML 210 ML IV PRN (01:45)
[2018-12-16] MEDS ORDERED: LACTULOSE SYRUP 20 GM/30 ML UDC PO ONE (02:00)
[2018-12-16] MEDS ORDERED: SODIUM BICARBONATE 8.4% INJ 50 ML SYR IV STA ×2 (02:19→04:53)
[2018-12-16] MEDS ORDERED: ALBUMIN 25% 12.5GM 0.25 GM/ML BTL IV ONE (02:30)
[2018-12-16] MEDS ORDERED: RIFAXIMIN 550 MG TABLET PO STA (02:31)
[2018-12-16] MEDS ORDERED: PEG (High)/E-LYTE SOLN 4,000 ML BTL PO ONE (02:45)
[2018-12-16] MEDS: SODIUM CHLORIDE 0.9% 1000ML 1,000 ML IV SCH ×2 (02:45→08:10)
[2018-12-16 02:46] LABS: BASOPHILS % 0.1 % (0.0-1.0); EOSINOPHILS # (AUTO) 0.1 (0.0-0.4); EOSINOPHILS % 0.5 % (0.0-6.0); HEMATOCRIT 27.3 % (34.2-44.1); HEMOGLOBIN 9.1 g/dL (12.0-16.0); LYMPHOCYTES # (AUTO) 0.5 (1.0-3.2); LYMPHOCYTES % 4.6 % (18.0-39.1); MEAN CORPUSCULAR HEMOGLOBIN 31.3 pg (28-32); MEAN CORPUSCULAR HGB CONC 33.3 g/dL (31-35); MEAN CORPUSCULAR VOLUME 93.8 fL (81-99); MONOCYTES # (AUTO) 1.1 (0.2-0.8); NEUTROPHILS # (AUTO) 8.2 (2.1-6.9); NEUTROPHILS % 82.6 % (38.7-80.0); RED BLOOD COUNT 2.91 x10e6/uL (3.6-5.1); RED CELL DISTRIBUTION WIDTH 16.9 % (11.7-14.4)
[2018-12-16 02:55] LABS: PLATELET COUNT 239 x10e3/uL (140-360)
[2018-12-16 03:14] LABS: ALANINE AMINOTRANSFERASE 39 IU/L (0-55); ALBUMIN 2.2 g/dL (3.5-5.0); ALBUMIN/GLOBULIN RATIO 0.5 (0.8-2.0); ALKALINE PHOSPHATASE 210 IU/L (40-150); ANION GAP 20.2 mmol/L (8-16); BUN/CREATININE RATIO 50 (6-25); CALCIUM 8.8 mg/dL (8.4-10.2); CARBON DIOXIDE 14 mmol/L (22-29); CHLORIDE 96 mmol/L (98-107); CREATININE, SERUM 2.54 mg/dL (0.57-1.11); EST GLOMERULAR FILTRATION RATE 20 ML/MIN (60-); GLUCOSE 196 mg/dL (74-118); POTASSIUM 5.2 mmol/L (3.5-5.1); SODIUM 125 mmol/L (136-145)
--- NOTE | 2018-12-16 03:16 | Diagnostic Imaging Report ---
EXAMINATION: CHEST SINGLE (PORTABLE) INDICATION: Intubated COMPARISON: Chest radiograph 12/15/2018 FINDINGS: AP view Limited exam as patient is rotated right. TUBES and LINES: Interval placement of an endotracheal tube, with tip at the level of the gianfranco LUNGS: Lungs are well inflated. There is mild prominence of the central pulmonary vasculature, consistent with pulmonary venous congestion. PLEURA: No pleural effusion or pneumothorax. HEART AND MEDIASTINUM: The cardiomediastinal silhouette is prominent. BONES AND SOFT TISSUES: Unchanged. UPPER ABDOMEN: No free air under the diaphragm. IMPRESSION: 1. The ET tube tip is at the level of the gianfranco. Consider retraction by 2 cm. 2. The enteric tube courses towards abdomen, the tip is not discernible, could be in the esophagus. An abdominal radiograph could delineate the location of the enteric tube tip. 3. Cardiomegaly with pulmonary vascular congestion. Signed by: Neil Park DO on 12/16/2018 3:12 AM
[2018-12-16 03:19] LABS: ACETAMINOPHEN < 3 ug/mL (10-30); BLOOD UREA NITROGEN 126 mg/dL (7-26)
--- NOTE | 2018-12-16 03:33 | Diagnostic Imaging Report ---
CT BRAIN WO HISTORY: Altered mental status, hepatic encephalopathy COMPARISON: Head CT 12/05/2018 TECHNIQUE: Noncontrast axial scans were obtained from skull base to the vertex. Coronal and sagittal reconstructions obtained from the axial data. One or more of the following dose reduction techniques were used: Automated exposure control, adjustment of the mA and/or kV according to patient size, and/or utilization of iterative reconstruction technique. DISCUSSION: Been hardening artifacts obscure some details. Scalp/Skull: Unremarkable. Brain sulci: Appropriate for patient's age. Ventricles: Normal in size and configuration. No hydrocephalus. Extra-axial spaces: No gross masses or fluid collections. Parenchyma: There is questionable mild cerebellar tonsillar ectopia. Ybarra-white matter differentiation is grossly preserved. Otherwise, no gross mass, hemorrhage, or large vascular territory acute infarct. Dural sinuses: No abnormal densities. Sellar/Suprasellar region: Grossly unremarkable. Skull base: Intact. Incidental findings: Oral and nasal tubes are partially visualized. Trace fluid layers in the right nasal cavity and right nasopharynx. IMPRESSION: Limited exam due to beam hardening artifacts. In spite of limitations: 1. No definite acute intracranial abnormalities. No significant change compared to head CT dated 12/05/2018. 2. Questionable mild cerebellar tonsillar ectopia. Signed by: Dr. Kj Ledezma M.D. on 12/16/2018 3:29 AM
[2018-12-16] MEDS ORDERED: PROPOFOL IV EMULSION 10MG/ML 100 ML ONE (03:40)
--- NOTE | 2018-12-16 03:42 | Diagnostic Imaging Report ---
EXAM: CT Abdomen and Pelvis WITHOUT contrast INDICATION: Hepatic cirrhosis, altered mental status COMPARISON: Abdominal CT 01/05/2018. TECHNIQUE: Abdomen and pelvis were scanned utilizing a multidetector helical scanner from the lung base to the pubic symphysis without administration of IV contrast. Absence of intravenous contrast decreases sensitivity for detection of focal lesions and vascular pathology. Coronal and sagittal reformations were obtained. Routine protocol was performed. IV CONTRAST: None ORAL CONTRAST: None COMPLICATIONS: None RADIATION DOSE: Total DLP: 1330 mGy*cm Estimated effective dose: (DLP x 0.015 x size factor) mSv CTDIvol has been reviewed. It is below the limits set by the Radiation Protocol Committee (RPC). Dose modulation, iterative reconstruction, and/or weight based adjustment of the mA/kV was utilized to reduce the radiation dose to as low as reasonably achievable. FINDINGS: Limited evaluation due to streak artifact, motion artifact, and suboptimal patient positioning. LINES and TUBES: Enteric tube tip terminates in the gastric lumen.. LOWER THORAX: Focal consolidative opacities in the right lung base likely atelectasis although aspiration is possible. HEPATOBILIARY: Nodular hepatic surface contour. No obvious hepatic mass although evaluation is limited due to streak artifact, and suboptimal technique. GALLBLADDER: There are cholecystectomy clips. SPLEEN: No splenomegaly. PANCREAS: No focal masses or ductal dilatation. ADRENALS: No adrenal nodules KIDNEYS/URETERS: No hydronephrosis. No cystic or solid mass lesions. No stones. GI TRACT: No abnormal distention, wall thickening, or evidence of bowel obstruction. The stomach is mildly distended with fluid and air. PELVIC ORGANS/BLADDER: Persistent 15 cm midpelvic mass, measured 10 cm in 2017. LYMPH NODES: No lymphadenopathy. VESSELS: Unremarkable. PERITONEUM / RETROPERITONEUM: No free air or fluid. BONES: Stable T12 moderate to severe vertebral body compression fracture. SOFT TISSUES: Unremarkable. IMPRESSION: 1. Enteric tube tip terminates in the gastric lumen, the stomach is mildly distended with fluid and air. 2. Focal consolidative opacities in the right lung base likely atelectasis although aspiration is possible. 3. Findings of hepatic cirrhosis. 4. Persistent 15 cm pelvic mass, measuring 10 cm in December 2017, remains concerning for malignancy. Recommend gynecology oncology referral. Signed by: Neil Park DO on 12/16/2018 3:39 AM
[2018-12-16] MEDS: PROPOFOL IV EMULSION 10MG/ML 100 ML IV PRN ×3 (03:45→20:57)
[2018-12-16] MEDS: LACTULOSE SYRUP 20 GM/30 ML UDC PO SCH ×13 (04:05→20:57)
[2018-12-16] MEDS: MEROPENEM 500MG/ NS 50ML 50 ML IV SCH ×3 (04:09→20:49)
--- NOTE | 2018-12-16 04:44 | Diagnostic Imaging Report ---
EXAM: Abdomen 1 View INDICATION: NG tube placement COMPARISON: Abdominal CT 01/05/2018 FINDINGS: Motion during the exam limits evaluation. Endotracheal tube projects in the lower thoracic trachea. Enteric tube courses into the upper mid abdomen. No dilated loops of small bowel. No renal calculi. No abnormal soft tissue masses. Chronic compression fracture of T12 vertebral body. There are degenerative changes in the spine. IMPRESSION: Enteric tube tip terminates in the expected location of the gastric lumen. Signed by: Neil Park DO on 12/16/2018 4:41 AM
[2018-12-16] MEDS ORDERED: METRONIDAZOLE 500MG/NS 100ML 200 ML IV ONE (04:47)
[2018-12-16] MEDS ORDERED: SODIUM BICARBONATE 8.4% SYRING 100 ML ONE (04:55)
[2018-12-16 05:34] LABS: ALBUMIN 2.7 g/dL (3.5-5.0); ALBUMIN/GLOBULIN RATIO 0.8 (0.8-2.0); ANION GAP 18.9 mmol/L (8-16); CALCIUM 8.8 mg/dL (8.4-10.2); CREATININE, SERUM 2.66 mg/dL (0.57-1.11); POTASSIUM 4.9 mmol/L (3.5-5.1)
[2018-12-16] MEDS ORDERED: METRONIDAZOLE 750MG/NS 150ML 150 ML IV SCH (06:00)
[2018-12-16 06:37] LABS: LYMPHOCYTES % (MANUAL) 4 % (19-48); MONOCYTES % (MANUAL) 7 % (3.4-9.0); NEUTROPHILS % (MANUAL) 89 % (40-74)
[2018-12-16 06:39] LABS: RBC MORPHOLOGY COMMENT NORMAL
[2018-12-16] MEDS: INSULIN REGULAR, HUMAN 100 UNIT/1 ML 3ML VIAL SQ SCH ×3 (07:31→18:00)
[2018-12-16 07:45] LABS: CREATINE KINASE MB 4.3 ng/mL (0-5.0)
[2018-12-16] MEDS: RIFAXIMIN 550 MG TABLET PO SCH ×2 (09:00→17:00)
[2018-12-16] MEDS: SODIUM CHLORIDE 1 GM TAB PO SCH (09:00)
[2018-12-16] MEDS: PANTOPRAZOLE 40 MG 10ML VIAL IV SCH (09:00)
[2018-12-16] MEDS ORDERED: SERTRALINE HCL 50 MG TAB PO SCH (09:00)
[2018-12-16 10:34] LABS: ALBUMIN 3.1 g/dL (3.5-5.0); ALBUMIN/GLOBULIN RATIO 1.1 (0.8-2.0); ANION GAP 18.2 mmol/L (8-16); CREATININE, SERUM 2.86 mg/dL (0.57-1.11); POTASSIUM 4.2 mmol/L (3.5-5.1)
[2018-12-16 12:01] LABS: ABG HCO3 19 mmol/L (23-28); ABG PCO2 36 mmHg (41-51); ABG PH 7.33 (7.31-7.41); ABG PO2 229 mmHg (80-105)
[2018-12-16] MEDS ORDERED: BUMETANIDE INJ 0.25MG/ML 4ML VIAL IV NR (14:30)
[2018-12-16] MEDS: SODIUM BICARBONATE 8.4% IV SCH (14:30)
[2018-12-16] MEDS: SODIUM CHLORIDE 0.45% IV SCH (14:30)
[2018-12-16 14:38] LABS: ANION GAP 18.6 mmol/L (8-16); CALCIUM 8.8 mg/dL (8.4-10.2); CREATININE, SERUM 2.95 mg/dL (0.57-1.11); POTASSIUM 4.6 mmol/L (3.5-5.1)
[2018-12-16] MEDS: BUMETANIDE 10 MG in SODIUM CHLORIDE 0.9% 100 ML 60 ML IV SCH (15:00)
[2018-12-16] MEDS ORDERED: BUMETANIDE INJ 0.25MG/ML 4ML VIAL IV ONE (15:45)
--- NOTE | 2018-12-16 16:45 | Consultation ---
DATE OF CONSULTATION: 12/16/2018 Cardiology Consultation REQUESTING PHYSICIAN: Yarelis Purdy MD REASON FOR CONSULTATION: Abnormal ECG. HISTORY OF PRESENT ILLNESS: This is a 57-year-old woman with history of DORSEY cirrhosis, diabetes mellitus, hypertension, hyperlipidemia, and chronic kidney disease, who initially presented to the [facility] due to altered mental status. She was found to have encephalopathy secondary to elevated ammonia and was given lactulose with improvement in her mental status. Hospital course was complicated by acute kidney injury for which Nephrology was consulted as well as acute anemia for which GI was consulted. The patient's all history is obtained from the patient's family and medical record as the patient is intubated and sedated. The patient's family reports that she was more confused starting on Saturday with worsening of her mental status yesterday. Yesterday evening, JAZZ SINGER was called due to respiratory distress and she was subsequently intubated by ER physician. Labs revealed elevation in ammonia levels of 510, hyponatremia. The labs revealed elevation in the ammonia level. Cardiology was consulted due to ECG changes. REVIEW OF SYSTEMS: Unable to obtain secondary to intubation and sedation. PAST MEDICAL HISTORY: 1. DORSEY cirrhosis. 2. Diabetes mellitus. 3. Hypertension. 4. Hyperlipidemia. 5. Chronic kidney disease. PAST SURGICAL HISTORY: 1. Cholecystectomy. 2. section. ALLERGIES: PLEASE SEE EMR. MEDICATIONS: See medication list. SOCIAL HISTORY: Quit four months ago, but previously smoked one pack a day for 20 years. No alcohol or illicit drugs. FAMILY HISTORY: Denies family history of heart disease. PHYSICAL EXAMINATION: VITAL SIGNS: Temperature 98.2 degrees, pulse 85, respiratory rate 18, blood pressure 115/74, oxygen saturation 100% on mechanical ventilation. GENERAL: Obese woman, intubated and sedated. No acute distress. HEENT: Normocephalic, atraumatic. NECK: Supple. No thyromegaly or cervical lymphadenopathy. No carotid bruits. ET tube is present. LUNGS: Clear to auscultation in anterior lung rajan. CARDIOVASCULAR: Normal rate, irregular rhythm. No murmur. Normal S1, S2. ABDOMEN: Soft, nontender. EXTREMITIES: No edema. LABORATORY DATA: WBC 9.8, hemoglobin 9.1, hematocrit 27.3, platelets 239. Sodium 132, potassium 4.6, chloride 99, CO2 of 19, BUN 123, creatinine 2.95, AST 85, ALT 35, ammonia 155. BNP 268.2. Troponin 0.221. Chest x-ray, cardiomegaly with pulmonary vascular congestion, ET tube by the level of the gianfranco. Enteric tube is present. CT abdomen pelvis, enteric tube terminates in the gastric lumen. Stomach is mildly distended with fluid and air. Focal consolidative opacities in the right lung base likely atelectasis, although aspiration is possible. Findings of hepatic cirrhosis, persistent 15 cm pelvic mass measuring 10 cm in December 2017, remains concerning for malignancy. Recommend Gynecology and Oncology referral. CT brain, no definite acute intracranial abnormalities. No significant change compared to head CT dated 12/05/2018. Questionable mild cerebellar tonsillar ectopia. EKG, sinus rhythm with first-degree AV block and frequent PACs. IMPRESSION: 1. Acute hypoxic respiratory failure, currently on mechanical ventilation. 2. Altered mental status, likely metabolic encephalopathy, likely secondary to elevated ammonia. 3. 15 cm pelvic mass. 4. Frequent premature atrial contractions. 5. Abnormal ECG. 6. Elevated BNP. 7. Nonalcoholic steatohepatitis cirrhosis. 8. Diabetes mellitus. 9. Hypertension. 10. Hyperlipidemia. 11. Chronic kidney disease. RECOMMENDATIONS: No evidence of myocardial infarction on serial cardiac biomarkers thus far. Continue to trend. Obtain echocardiogram. Monitor patient closely on telemetry. Correct electrolyte abnormalities. Agree with IV diuresis. Antibiotics per primary service. Mechanical ventilation per Pulmonary. Thank you for this consult. We will continue to follow. Humaira Chavarria MD ABS/MODL /[id number] MTDD
--- NOTE | 2018-12-16 18:20 | Diagnostic Imaging Report ---
EXAMINATION: CHEST SINGLE (PORTABLE) COMPARISON: Chest x-ray 0344 hours INDICATION: ^CK RIGHT TRIALYSIS CATHETER PLACEMENT ^20181216 ^1800 DISCUSSION: Frontal view of the chest obtained at 1753 hours. Image is compromised due to patient's generous body habitus as well as motion artifact. The patient is rotated. HEART AND MEDIASTINUM: The heart is enlarged LINES: Right IJ catheter tip is poorly visualized with the tip superimposed over the mediastinum. An enteric tube cannot be identified distally. Endotracheal tube is poorly visualized. LUNGS: Low lung volumes and bibasilar atelectasis. PLEURA: No large effusions. No evidence of pneumothorax BONES AND SOFT TISSUES: No focal osseous lesion. The soft tissues are normal. IMPRESSION: Suboptimal examination. Central venous catheter, enteric tube, and endotracheal tube are poorly visualized. Low lung volumes and bibasilar atelectasis. No gross evidence of pneumothorax. Signed by: Dr. Armani Pitts MD on 12/16/2018 6:16 PM
[2018-12-16] MEDS ORDERED: ETOMIDATE 2 MG/ML 10 ML INJ IV ONE (18:28)
[2018-12-16] MEDS ORDERED: SUCCINYLCHOLINE CHLORIDE 20 MG/ML 10ML VIAL ONE (18:28)
[2018-12-16 19:23] LABS: ALBUMIN 2.8 g/dL (3.5-5.0); ALBUMIN/GLOBULIN RATIO 0.9 (0.8-2.0); ANION GAP 18.4 mmol/L (8-16); CALCIUM 8.1 mg/dL (8.4-10.2); CREATININE, SERUM 3.16 mg/dL (0.57-1.11); POTASSIUM 4.4 mmol/L (3.5-5.1)
--- NOTE | 2018-12-16 19:29 | Diagnostic Imaging Report ---
EXAMINATION: CHEST SINGLE (PORTABLE) COMPARISON: Chest x-ray 1753 hours INDICATION: ^F/U RIGHT TRIALYSIS CATHETER PLACEMENT ^20181216 ^1844 DISCUSSION: Frontal view of the chest obtained at 1852 hours. Motion artifact has diminished. HEART AND MEDIASTINUM: The heart is enlarged LINES: Endotracheal tube terminates about 2 cm above the gianfranco. Right IJ catheter terminates in the SVC. Enteric tube, if present, is poorly visualized LUNGS: Low lung volumes and right basilar atelectasis. PLEURA: No large effusions. No pneumothorax. BONES AND SOFT TISSUES: No focal osseous lesion. The soft tissues are normal. IMPRESSION: Right IJ catheter terminates in the SVC without pneumothorax. Endotracheal tube as described above. Enteric tube is poorly visualized. Low lung volumes with right basilar atelectasis. Signed by: Dr. Armani Pitts MD on 12/16/2018 7:26 PM
[2018-12-17] VITALS (22 sets, daily range): BP systolic 88–129; BP diastolic 39–66
--- NOTE | 2018-12-17 00:16 | Progress Note ---
DATE: 12/16/2018 GI Progress Report SUBJECTIVE: The patient got intubated yesterday, now in ICU, on respiratory support. Has NG tube, through which she is getting lactulose. She is having profuse diarrhea. REVIEW OF SYSTEMS: Unobtainable. MEDICATIONS: Reviewed as per MAR. She is on meropenem, also getting lactulose every 2 hours. She is also on other medications. PHYSICAL EXAMINATION: VITAL SIGNS: Temperature 98, pulse 90, respirations 22, blood pressure 136/54, oxygen saturation 100% on current ventilator setting. GENERAL: Obese body habitus, intubated, sedated on respiratory support. HEENT: Bilateral slightly icteric sclerae. ABDOMEN: Obese, soft, nondistended. Bowel sounds present, shifting dullness not appreciable. LABORATORY DATA: Ammonia level down to 85 from 155. Sodium 129, potassium 4.4, chloride 97, bicarb 18, BUN 128, creatinine 3.16, up from 2.95. Liver enzymes showed a total bilirubin 3.3, AST 76, ALT 34, alkaline phosphatase 176. IMPRESSION: 1. Decompensated, nonalcoholic steatohepatitis, liver cirrhosis with hepatic encephalopathy. 2. Hyponatremia. 3. Anemia without any gastrointestinal bleeding. 4. Thrombocytopenia, likely due to underlying portal hypertension. PLAN: Discontinue lactulose every 2 hours, change it to 30 g b.i.d., titrate the dose for 1 or 2 bowel movements. Hyponatremia is due to volume overload, it is dilutional. The patient is also having intravascular depletion. Nephrology is also following. We will continue to monitor her clinically. Fidencio Goyal MD SA/MODL /[id number]
[2018-12-17] MEDS: BUMETANIDE 10 MG in SODIUM CHLORIDE 0.9% 100 ML 60 ML IV SCH ×2 (01:17→11:32)
--- NOTE | 2018-12-17 02:56 | Consultation ---
DATE OF CONSULTATION: 12/16/2018 Pulmonary Medicine Consult REASON FOR REFERRAL: Acute respiratory failure. HISTORY OF PRESENT ILLNESS: Ms. Grigsby is a pleasant 57-year-old female with acute respiratory failure. The patient was admitted to [facility] on December 05, 2018. At that time, the patient had issues with altered mental status. The patient was not taking her lactulose at that time and came in with ammonia level of 414. After initial lactulose, the ammonia level came down to 119. However, eventually the patient was having some more altered mental status and stopped taking lactulose and it lupillo to 510. In the meantime, the patient was being treated for a probable urinary tract infection on admission. At baseline in this hospital, her creatinine level was 1.71 at its lowest during this hospitalization. This is equivalent to other creatinine levels over the last year. The creatinine slowly has risen to 3.16. BNP is 3198. The patient of course has chronic liver disease, which created a fragile state. Eventually, the patient due to altered mental status required intubation last night. I am consulted to help out. PAST MEDICAL HISTORY: DORSEY cirrhosis of the liver, diabetes, hypertension, hyperlipidemia, chronic kidney disease, cholecystectomy, , and obesity. MEDICATIONS: Medication list reviewed per the chart record. ALLERGIES: NO KNOWN DRUG ALLERGIES. SOCIAL HISTORY: No smoking, no drinking, and no drugs. Supportive family. The patient has been on and off the transplant liver list. FAMILY HISTORY: Noncontributory. REVIEW OF SYSTEMS: Cannot get, as she is intubated. OBJECTIVE: VITAL SIGNS: Afebrile. Vital signs were stable while on the ventilator. HEENT: Normocephalic and atraumatic. NECK: Supple. Throat midline, large neck. LUNGS: Bilateral air entry, limited, few rales. CARDIOVASCULAR: S1, S2. No murmurs, rubs, or gallops. ABDOMEN: Soft, obese, nontender, but limited exam. EXTREMITIES: No clubbing and no cyanosis. There is some edema of the extremities. INTEGUMENT: No rash. No purpura. LABORATORY DATA: A 4.2 potassium, 131 sodium, 17 bicarbonate, 119 BUN, 2.86 creatinine. A 9.9 white count, 22 hematocrit, 239 platelets. INR is 1.60. LFTs with nonspecific mild elevations only with alk phos 166, AST 76, ALT 34, total bilirubin 3.3, albumin 2.8, globulin 3.2, and total protein 6.0. Chest radiography with low lung volumes and right basilar atelectasis. IMPRESSION AND PLAN: 1. Acute respiratory failure, intubated. 2. Acute kidney failure on chronic kidney disease. Hepatorenal syndrome component. 3. Obesity, DORSEY cirrhosis. 4. Fluid overload. 5. Hypokalemia, better. 6. Hyponatremia, active. 7. Mild metabolic acidosis. 8. Anemia. 9. Hyperbilirubinemia. 10. Moderate hypoproteinemia. 11. Coagulopathy, predominant liver disease, rule out other. Admitted with E. coli, ESBL UTI. 12. Hyperammonemia, hepatic encephalopathy. Other encephalopathy, toxic metabolic and other causes. 13. Possible pneumonia. 14. Diabetes. 15. Hypertension. 16. Hyperlipidemia. 17. Former smoker, quit four months ago, one pack per day x20 years. Continue intubated state. Check ABG. Chest x-ray. Dialysis may be considered. I asked nursing to update renal given the decreasing urine output going toward oliguria. Continue lactulose. 15 cm pelvic mass, possibly seroma versus other. The patient in very critical condition. Continue to control blood sugars and blood pressure. The patient remained in a very bad shape at this time. Continue antibiotics for infection sources as per ID. Thank you very much, Dr. Johnston for this consult. Please call for questions. MD AZAM Kim/MODL /[id number]
[2018-12-17] MEDS: PROPOFOL IV EMULSION 10MG/ML 100 ML IV PRN (03:00)
[2018-12-17] MEDS: MEROPENEM 500MG/ NS 50ML 50 ML IV SCH (04:09)
[2018-12-17 05:11] LABS: BASOPHILS % 0.2 % (0.0-1.0); EOSINOPHILS # (AUTO) 0.1 (0.0-0.4); EOSINOPHILS % 1.3 % (0.0-6.0); LYMPHOCYTES # (AUTO) 0.5 (1.0-3.2); LYMPHOCYTES % 5.6 % (18.0-39.1); MEAN CORPUSCULAR HEMOGLOBIN 30.8 pg (28-32); MEAN CORPUSCULAR HGB CONC 32.4 g/dL (31-35); MONOCYTES # (AUTO) 0.9 (0.2-0.8); MONOCYTES % 10.2 % (4.4-11.3); NEUTROPHILS # (AUTO) 7.3 (2.1-6.9); PLATELET COUNT 129 x10e3/uL (140-360); RED BLOOD COUNT 2.21 x10e6/uL (3.6-5.1); RED CELL DISTRIBUTION WIDTH 17.4 % (11.7-14.4)
[2018-12-17 05:15] LABS: HEMOGLOBIN 6.8 g/dL (12.0-16.0)
[2018-12-17 05:40] LABS: ALBUMIN 2.8 g/dL (3.5-5.0); ALBUMIN/GLOBULIN RATIO 0.9 (0.8-2.0); CALCIUM 8.6 mg/dL (8.4-10.2); CREATININE, SERUM 3.46 mg/dL (0.57-1.11)
[2018-12-17] MEDS: INSULIN REGULAR, HUMAN 100 UNIT/1 ML 3ML VIAL SQ SCH ×4 (05:59→18:00)
[2018-12-17 06:09] LABS: MAGNESIUM 3.3 MG/DL (1.3-2.1); PHOSPHORUS 8.8 MG/DL (2.3-4.7)
[2018-12-17 06:27] LABS: FREE THYROXINE INDEX 1.5592 (1.4-3.8); THYROID STIMULATING HORMONE 0.812 uIU/mL (0.350-4.940)
[2018-12-17] MEDS ORDERED: SODIUM CHLORIDE 0.9% 250ML 250 ML IV ONE (07:00)
--- NOTE | 2018-12-17 08:21 | Diagnostic Imaging Report ---
EXAMINATION: CHEST SINGLE (PORTABLE) INDICATION: Congestive heart failure. COMPARISON: Chest radiograph 12/16/2018 FINDINGS: AP view TUBES and LINES: Right IJ central venous catheter with tip in the cavoatrial junction. ET tube tip terminates in the mid intrathoracic trachea. The distal tip of the enteric tube is not visualized.. LUNGS: Low lung volumes. Bibasilar atelectasis. There is mild prominence of the central pulmonary vasculature, consistent with pulmonary venous congestion. PLEURA: No pleural effusion or pneumothorax. HEART AND MEDIASTINUM: Cardiac size is mildly enlarged. BONES AND SOFT TISSUES: No acute osseous lesion. Soft tissues are unremarkable. UPPER ABDOMEN: No free air under the diaphragm. IMPRESSION: Unchanged exam compared to day prior with mild cardiomegaly and central pulmonary vascular congestion. Signed by: Neil Park DO on 12/17/2018 8:18 AM
[2018-12-17] MEDS ORDERED: SODIUM CHLORIDE 0.9% 1000ML 2,000 ML ONE (09:04)
[2018-12-17] MEDS ORDERED: MANNITOL 25% 12.5GM/50ML 100 ML ONE (09:12)
--- NOTE | 2018-12-17 09:30 | Diagnostic Imaging Report ---
Nontunneled dialysis catheter placement, 12/16/2018. History: Renal failure. Comparison: None available. Cement Side Laster: Dr. Valerio. Medication: 5 cc of 1% lidocaine without epinephrine. Conscious sedation: None. EBL: < 2 cc. Specimen: None. Technique: After informed consent and timeout procedure, the patient's right neck was prepped and draped in a sterile fashion. The skin was anesthetized with lidocaine. The right internal jugular vein was accessed using a micropuncture site with ultrasound guidance. Sonographic images were saved to PACS. A 0.035-in. wire was advanced through the micropuncture sheath into the vein. The tract was dilated. A 13 [place]ian 15 cm triple-lumen Trialysis catheter was advanced over the wire into the vessel. The catheter was secured with suture. Dressing was applied. The patient tolerated the procedure well without evidence of complication. Postprocedure chest x-ray was ordered. IMPRESSION: Successful nontunneled dialysis catheter placement with ultrasound guidance guidance. Catheter is ready for immediate use. Signed by: Eddie Valerio on 12/17/2018 9:27 AM
[2018-12-17] MEDS: PANTOPRAZOLE 40 MG 10ML VIAL IV SCH (09:45)
[2018-12-17] MEDS: LACTULOSE SYRUP 20 GM/30 ML UDC NG SCH ×2 (09:45→17:48)
[2018-12-17] MEDS: RIFAXIMIN 550 MG TABLET PO SCH ×2 (09:45→17:49)
[2018-12-17] MEDS ORDERED: SODIUM CHLORIDE 0.9% 250ML 250 ML ONE (10:08)
[2018-12-17] MEDS: SODIUM BICARBONATE 8.4% IV SCH (10:25)
[2018-12-17] MEDS: SODIUM CHLORIDE 0.45% IV SCH (10:25)
[2018-12-17] MEDS ORDERED: HEPARIN SOD (PORCINE) 1000 UNIT/ML SDV ONE (10:51)
[2018-12-17] MEDS ORDERED: MEROPENEM 500MG/ NS 50ML 50 ML IV SCH ×2 (15:00→21:00)
--- NOTE | 2018-12-17 18:56 | Progress Note ---
DATE: 12/17/2018 Cardiology Progress Note SUBJECTIVE: The patient remains intubated and sedated. She was started on hemodialysis today and transfused 2 units PRBC [facility]. OBJECTIVE: VITAL SIGNS: Temperature 98.1 degrees, pulse 76, respiratory rate 14, blood pressure 90/44, oxygen saturation 100% on mechanical ventilation. GENERAL: Morbidly obese woman, no acute distress, intubated and sedated. LUNGS: Clear to auscultation in anterior lung rajan. No wheezes or crackles appreciated. CARDIOVASCULAR: Normal rate, regular rhythm. No murmur. Normal S1, S2. ABDOMEN: Soft, nontender. EXTREMITIES: 1+ pitting edema. CARDIAC MEDICATIONS: Bumex 1 mg an hour. LABORATORY DATA: WBC 8.93, hemoglobin 6.8, hematocrit 21, platelets 129. Sodium 131, potassium 4, chloride 98, CO2 of 19, BUN 133, creatinine 3.46. BNP 3198. TELEMETRY: Normal sinus rhythm. IMPRESSION: 1. Acute hypoxic respiratory failure, currently on mechanical ventilation. 2. Altered mental status, likely metabolic encephalopathy, likely secondary to elevated ammonia. 3. Acute renal failure, initiate on hemodialysis. 4. Decompensated nonalcoholic steatohepatitis cirrhosis. 5. Pelvic mass 15 cm. 6. Frequent premature atrial contractions. 7. Abnormal ECG. 8. Elevated BNP. 9. Diabetes mellitus. 10. Hypertension. 11. Hyperlipidemia. RECOMMENDATIONS: No evidence of myocardial portion on serial cardiac biomarkers thus far. Echocardiogram has been ordered. We will review the images. Monitor patient closely on telemetry. Volume management per Nephrology given initiation on hemodialysis. Antibiotics per primary service. Mechanical ventilation per Pulmonary. Thank you for this consult. We will continue to follow. Humaira Chavarria MD ABS/MODL /[id number]
--- NOTE | 2018-12-18 00:36 | Progress Note ---
DATE: 12/17/2018 GI progress report SUBJECTIVE: The patient remains intubated, on ventilator. NG is in place, feeding is on hold. Per family's request, the patient is going to be transferred to [facility]. REVIEW OF SYSTEMS: Unobtainable. MEDICATION: Rifaximin 550 mg twice daily, lactulose 20 g twice daily, meropenem 50 mL per 100 mL an hour daily, bumetanide daily, Zofran daily, regular insulin per sliding scale protocol. PHYSICAL EXAMINATION: VITAL SIGNS: Temperature 98.1, pulse 75, respirations 15, blood pressure 112/58, and oxygen saturation 100% on current ventilator setting. GENERAL: Morbidly obese body habitus. Intubated, sedated on respiratory support. HEENT: Bilateral icteric sclerae. ABDOMEN: Huge, obesity, nondistended, abdominal examination is quite limited secondary to obesity. Therefore, shifting dullness cannot be appreciated. LABORATORY DATA: Ammonia level has come down to 65. Sodium 131 up from 129, potassium 4.0, chloride 98, bicarb 19, BUN 133, creatinine 3.46 which is up from 3.16, and glucose 173. The liver enzymes showed a total bilirubin 2.9, AST 83, ALT 33, and alkaline phosphatase 161. Chest x-ray done today that showed unchanged exam compared to day prior with mild cardiomegaly and central pulmonary vascular congestion. IMPRESSION: 1. Decompensated, nonalcoholic steatohepatitis, liver cirrhosis with hepatic encephalopathy. 2. Hyponatremia, improving. 3. Anemia without any gastrointestinal bleeding. 4. Thrombocytopenia due to underlying portal hypertension. PLAN: Continue present medical management. The patient is going to be transferred to [facility]. Fidencio Goyal MD SA/MODL /[id number]
--- NOTE | 2018-12-21 20:16 | Discharge Summary ---
HOSPITAL SUMMARY: A 57-year-old female patient admitted with hepatic encephalopathy and fever. During the hospital course, the patient was treated with antibiotic for possible spontaneous bacterial peritonitis. ID consult was called. Her kidney function was getting worse and she became increasingly encephalopathic and she was intubated. She had a hepatorenal failure, had a dialysis with temporary dialysis catheter. Due to multiple medical problems, she was transferred to [facility] for higher level of care. Her creatinine was 3.16 with a BNP of 3198. DISCHARGE DIAGNOSES: 1. Hepatic encephalopathy. 2. Fever. 3. ESBL urinary tract infection. 4. Renal failure. 5. Hyponatremia. 6. Fluid overload. 7. Respiratory failure. MD NANETTE Olivares/CRISTAL /[id number]
== END 2018-12-17 23:24 | disposition short-term general hospital (02) | DRG 871 ==
LOC: ER 11:00 → ERHOLD 12:45 → INTOOBSV 12:45 → MED/SURG 13:24 → OBSVTOIN 12-08 08:39 → MED/SURG3 12-09 10:51 → ICU 12-16 00:54
PROVIDERS: ADMIT Internal Medicine; ATTEND Internal Medicine
PROC: 30233N1 Transfusion of Nonautologous Red Blood Cells into Peripheral Vein, Percutaneous Approach (ICD-10-PCS; 2018-12-14)
PROC: 0BH17EZ Insertion of Endotracheal Airway into Trachea, Via Natural or Artificial Opening (ICD-10-PCS; principal; 2018-12-16)
PROC: 5A1945Z Respiratory Ventilation, 24-96 Consecutive Hours (ICD-10-PCS; 2018-12-16)
PROC: 5A1D70Z Performance of Urinary Filtration, Intermittent, Less than 6 Hours Per Day (ICD-10-PCS; 2018-12-17)
DX: A41.9 Sepsis, unspecified organism (principal); K72.00 Acute and subacute hepatic failure without coma; K76.7 Hepatorenal syndrome; K65.2 Spontaneous bacterial peritonitis; J96.01 Acute respiratory failure with hypoxia; N17.0 Acute kidney failure with tubular necrosis; J69.0 Pneumonitis due to inhalation of food and vomit; N39.0 Urinary tract infection, site not specified; K76.6 Portal hypertension; E87.2 Acidosis; E22.2 Syndrome of inappropriate secretion of antidiuretic hormone; Z68.42 Body mass index [BMI] 45.0-49.9, adult; R65.20 Severe sepsis without septic shock; E11.42 Type 2 diabetes mellitus with diabetic polyneuropathy; E11.22 Type 2 diabetes mellitus with diabetic chronic kidney disease; I12.9 Hypertensive chronic kidney disease with stage 1 through stage 4 chronic kidney disease, or unspecified chronic kidney disease; N18.3 Chronic kidney disease, stage 3 (moderate); K75.81 Nonalcoholic steatohepatitis (NASH); F32.9 Major depressive disorder, single episode, unspecified; E66.01 Morbid (severe) obesity due to excess calories; Z91.19 Patient's noncompliance with other medical treatment and regimen; D64.9 Anemia, unspecified; D69.6 Thrombocytopenia, unspecified; R19.00 Intra-abdominal and pelvic swelling, mass and lump, unspecified site; I49.1 Atrial premature depolarization; E87.6 Hypokalemia; E80.6 Other disorders of bilirubin metabolism; E77.8 Other disorders of glycoprotein metabolism; B96.20 Unspecified Escherichia coli [E. coli] as the cause of diseases classified elsewhere; Z16.12 Extended spectrum beta lactamase (ESBL) resistance; E78.5 Hyperlipidemia, unspecified; Z87.891 Personal history of nicotine dependence; R19.7 Diarrhea, unspecified; Z79.84 Long term (current) use of oral hypoglycemic drugs
CPT/HCPCS: 36415; 36556; 36600; 51700; 70450; 71045; 74018; 74176; 74470; 76700; 76770; 76937; 80048; 80053; 80307; 80329; 81001; 82140; 82550; 82553; 82570; 82805; 82948; 83690; 83735; 83880; 84100; 84300; 84436; 84443; 84479; 84484; 84550; 85025; 85610; 86677; 86704; 86705; 86706; 86850; 86900; 86920; 87040; 87070; 87086; 87186; 87205; 90732; 93005; 93306; 94002; 94003; 96361; 96372; 97139; 99284; G0009; G0378; J0330; J0696; J1170; J1644; J1650; J1817; J2060; J2150; J2250; J2405; J7030; J7042; J7050; P9016; P9045